=== PATIENT | female | born 1955 | race Caucasian/White ===

== ENCOUNTER → 2017-12-27 13:21 | Outpatient (CLI) | payer MEDICARE ==
[2014-05-28 23:23] VITALS: BMI 32.6
[~2017-12-27 13:21] MED LIST: BAYER CHEWABLE81 MG PO; CALCIUM 600+D T1 TA1 PO; COLACE100 MG PO; DURAGESIC1 PATCH .1 TD; EVOXAC30 MG PO; FERREX 28 TABL1 EACH PO; FETZIMA40 MG PO; FLAGYL500 MG PO; FLORAJEN3 CAPS460 MG PO; HYDROCODON-ACE1 EAC7 PO; ICAPS AREDS1 TAB.SA PO; IPRAT-ALBUT 0.5-3 ML UPD; LIDODERM 5 %1 PATCH TD; LISINOPRIL10 MG PO; LYRICA150 MG PO; MS CONTIN30 MG PO; MULTIPLE VITAMI1 TA1 PO; OMEPRAZOLE40 MG PO; OXYCONTIN15 MG PO; PEPCID20 MG PO; PHENERGAN25 M1 PO; PLAQUENIL200 MG PO; PREDNISONE5 MG PO; PREVACID15 MG PO; SINGULAIR10 MG PO; VENTOLIN HFA18 GM INH
== END | disposition home or self-care (01) ==
LOC: D.RT 13:21
DX: J44.9 Chronic obstructive pulmonary disease, unspecified (principal)

== ENCOUNTER 2018-02-11 13:07 | Inpatient (IN) | payer MEDICARE ==
[~2018-02-11] VITALS: Ht 165.1 cm; Wt 90.5 kg
--- NOTE | ~2018-02-11 | CN ---
PATIENT NAME:NIKKO SKELTON MEDICAL RECORD: [id number] : 51 LOCATION:D. D.2122 ADMIT DATE: 02/11/18 ACCOUNT: [id number] CONSULTING PHYSICIAN: IMANI MASTERSON MD REFERRING PHYSICIAN: CRISTIAN JOHNSON MD DATE OF CONSULTATION: 02/15/2018 CONSULT REQUESTING PHYSICIAN: Dr. Cristian Johnson. REASON FOR CONSULTATION: Questionable pneumonia. HISTORY OF PRESENT ILLNESS: Ms. Skelton is a 62-year-old female, who was brought into the ER with nausea, vomiting, and diarrhea. The patient has a CT scan of the abdomen, which showed possible atypical pneumonia. The patient denies any fever or chill. There is no cough, no sputum production. There is no recent pneumonia. She was having some flu early this year. PAST MEDICAL HISTORY: 1. COPD. 2. Chronic hypoxic respiratory failure. 3. History of BOOP. 4. History of interstitial lung disease. 5. History of restrictive lung disease. 6. History of rheumatoid arthritis. 7. History of systemic lupus erythematosus. 8. History of CREST syndrome. 9. Anxiety, depression. PAST SURGICAL HISTORY: 1. She has bilateral hip replacement. 2. She has history of lung biopsy. ALLERGIES: SHE IS ALLERGIC TO CEPHALOSPORIN, SULFA, BUSPIRONE, LORAZEPAM, PENICILLIN, AND ZOLPIDEM. MEDICATIONS: Anybots is reviewed. PERSONAL AND SOCIAL HISTORY: The patient is an ex-smoker. She is a nondrinker. FAMILY HISTORY: Noncontributory. PHYSICAL EXAMINATION: GENERAL: The patient is now lying comfortably in bed. She is not in acute distress. VITAL SIGNS: The blood pressure is 137/58, pulse is 107, respirations 17, temperature 98.1, and SPO2 95% on 3 liters nasal cannula. HEENT: Conjunctivae are pink. Sclerae are not icteric. NECK: Supple, no JVD. CHEST: The chest excursion is minimal on both sides. No wheeze, no rales. HEART: Rhythm regular, normal sound, no murmur. ABDOMEN: Soft, bowel sounds present. No hepatosplenomegaly. RECTAL: Deferred. EXTREMITIES: No cyanosis, no clubbing, no pedal edema. SKIN: Warm, normal turgor. CENTRAL NERVOUS SYSTEM: The patient is awake and alert. There is no obvious CONSULT REPORT [id number] NIKKO SKELTON cranial nerve abnormality. The gait was not tested. LABORATORY DATA: CBC: WBC 4.6, hemoglobin 9.7, hematocrit 29.7, platelet count is 128. Chemistry: Sodium 142, potassium 4.1, BUN is 11, creatinine 0.8. The CT scan of the abdomen, the CT cuts through the lower lobe showing some tree-in-bud opacities in the lower lobe. There is also some inflammation of the colon. IMPRESSION: 1. Chronic hypoxic respiratory failure. 2. History of pulmonary fibrosis. 3. History of bronchiolitis obliterans pneumonia. 4. Nausea and vomiting, most likely secondary to gastritis, diarrhea most likely secondary to colitis. 5. Acute renal failure, most likely secondary to dehydration. 6. Chronic obstructive pulmonary disease without exacerbation. 7. Rheumatoid arthritis. 8. History of systemic lupus erythematosus. 9. History of calcinosis, Raynaud phenomenon, esophageal dysmotility, sclerodactyly, and telangiectasia syndrome. RECOMMENDATION: Continue supplemental oxygen. Start on albuterol/ipratropium nebulizer. Continue the Singulair. I will check the CT scan of the chest. I do not think the patient has any acute pneumonia. The CT findings are most likely consistent with her history of BOOP and interstitial lung disease and possible rheumatoid lung. Dr. Johnson, thank you for involving me in the care of Ms. Skelton. TRANSINT:[id number] Voice Confirmation ID: [id number] DOCUMENT ID: [id number] IMANI MASTERSON MD CC: YOLANDE ISAAC MD [id number] DICTATION DATE: 02/15/18 1557 OFFSET PRESSMAN: 02/16/18216 ADM IN [facility] [address] [id number]
[~2018-02-11 13:07] MED LIST changes: -FLAGYL500 MG PO; -FLORAJEN3 CAPS460 MG PO; -HYDROCODON-ACE1 EAC7 PO; -IPRAT-ALBUT 0.5-3 ML UPD; -LISINOPRIL10 MG PO; -MS CONTIN30 MG PO; -OMEPRAZOLE40 MG PO; -PEPCID20 MG PO; -SINGULAIR10 MG PO
[2018-02-11 13:45] LABS: BASOPHILS 0.1 % (0-2); EOSINOPHILS 3.9 % (0-7); HEMATOCRIT 33.6 % (36.0-48.0); IMMATURE GRANULOCYTES 0.3 % (0-5); LYMPHOCYTES 12.2 % (15-50); MCH 29.9 pg (26.0-34.0); MCHC 32.7 g/dL (31.0-37.0); MCV 91.3 fL (80.0-100.0); MEAN PLATELET VOLUME 10.5 fL (7.4-10.4); MONOCYTES 12.4 % (2-11); NEUTROPHILS 71.1 % (40-80); PLATELET COUNT 227 10x3/uL (130-400); RBC 3.68 10x6/uL (4.00-5.40); RDW 13.9 % (11.5-14.5); WBC 7.2 10x3/uL (4.8-10.8)
[2018-02-11 14:01] LABS: ALBUMIN 3.7 g/dL (3.4-5.0); ANION GAP 13.5 mmol/L (8-16); BILIRUBIN - TOTAL 0.21 mg/dL (0.2-1.3); CALCIUM 8.7 mg/dL (8.5-10.1); CARBON DIOXIDE 29.4 mmol/L (21.0-32.0); CREATININE - SERUM 4.4 mg/dL (0.6-1.3); POTASSIUM - SERUM 4.9 mmol/L (3.5-5.1); PROTEIN - SERUM 6.5 g/dL (6.4-8.2)
[2018-02-11 14:46] LABS: APPEARANCE CLEAR (CLEAR); BILIRUBIN NEGATIVE (NEGATIVE); COLOR YELLOW (YELLOW); GLUCOSE NEGATIVE (NEGATIVE); KETONE NEGATIVE (NEGATIVE); NITRITE NEGATIVE (NEGATIVE); PROTEIN NEGATIVE (NEGATIVE); SPECIFIC GRAVITY 1.015 (1.005-1.020); UROBILINOGEN NORMAL (NORMAL)
[2018-02-11 14:58] LABS: CREATINE KINASE 1106 UL (21-215)
[2018-02-11 14:59] LABS: CKMB 12.5 U/L (0.0-3.6)
[2018-02-11] MEDS ORDERED: MS CONTIN30 MG PO (22:55)
[2018-02-11] MEDS ORDERED: LISINOPRIL10 MG PO (22:56)
[2018-02-11] MEDS ORDERED: HYDROCODON-ACE1 EAC7 PO (22:56)
[2018-02-11] MEDS ORDERED: SINGULAIR10 MG PO (22:57)
[2018-02-11] MEDS ORDERED: OMEPRAZOLE40 MG PO (22:58)
[2018-02-11] MEDS ORDERED: IPRAT-ALBUT 0.5-3 ML UPD (23:01)
[2018-02-11 23:48] VITALS: BP 125/71; BMI 31.8
[2018-02-12] VITALS: BP 114/49
[2018-02-12 04:00] VITALS: BP 100/70
[2018-02-12 05:06] LABS: BASOPHILS 0.5 % (0-2); EOSINOPHILS 6.8 % (0-7); HEMATOCRIT 30.8 % (36.0-48.0); HEMOGLOBIN 9.7 g/dL (12-16); IMMATURE GRANULOCYTES 0.3 % (0-5); LYMPHOCYTES 19.5 % (15-50); MCH 29.4 pg (26.0-34.0); MCHC 31.5 g/dL (31.0-37.0); MEAN PLATELET VOLUME 10.2 fL (7.4-10.4); MONOCYTES 20.3 % (2-11); NEUTROPHILS 52.6 % (40-80); PLATELET COUNT 182 10x3/uL (130-400)
[2018-02-12 05:37] LABS: MCV 93.3 fL (80.0-100.0)
[2018-02-12 05:56] LABS: CALC OSMOLALITY 315 mosm/kg (275-300); CALCIUM 8.1 mg/dL (8.5-10.1); CHLORIDE - SERUM 110 mmol/L (98-107); GLUCOSE 146 mg/dL (74-106); POTASSIUM - SERUM 4.7 mmol/L (3.5-5.1); SODIUM 146 mmol/L (136-145); UREA NITROGEN 73 mg/dL (7-18)
[2018-02-12 06:01] LABS: CREATINE KINASE 518 UL (21-215); eGFR NON AFRICAN AMERICAN 27 mL/min (90-120)
[2018-02-12 06:02] LABS: CKMB 4.9 U/L (0.0-3.6)
[2018-02-12 08:09] VITALS: BP 111/62
[2018-02-12 11:41] VITALS: BP 129/72
[2018-02-12 15:32] VITALS: BP 142/58
[2018-02-12 20:00] VITALS: BP 154/82
[2018-02-13] VITALS (7 sets, daily range): BP systolic 145–171; BP diastolic 69–87; Ht 165.1 cm; Wt 90.5 kg
[2018-02-13 06:16] LABS: BASOPHILS 0.5 % (0-2); EOSINOPHILS 5.5 % (0-7); HEMATOCRIT 32.7 % (36.0-48.0); HEMOGLOBIN 10.3 g/dL (12-16); IMMATURE GRANULOCYTES 0.2 % (0-5); LYMPHOCYTES 16.2 % (15-50); MCH 29.3 pg (26.0-34.0); MCHC 31.5 g/dL (31.0-37.0); MCV 92.9 fL (80.0-100.0); MEAN PLATELET VOLUME 10.5 fL (7.4-10.4); NEUTROPHILS 62.6 % (40-80); PLATELET COUNT 188 10x3/uL (130-400); RBC 3.52 10x6/uL (4.00-5.40); RDW 13.6 % (11.5-14.5); WBC 4.2 10x3/uL (4.8-10.8)
[2018-02-13 06:24] LABS: ALBUMIN 3.2 g/dL (3.4-5.0); ANION GAP 11.5 mmol/L (8-16); BILIRUBIN - TOTAL 0.2 mg/dL (0.2-1.3); CALCIUM 8.8 mg/dL (8.5-10.1); CARBON DIOXIDE 27.1 mmol/L (21.0-32.0); MAGNESIUM - SERUM 2.1 mg/dL (1.8-2.4); PHOSPHOROUS 1.9 mg/dL (2.5-4.9); POTASSIUM - SERUM 4.6 mmol/L (3.5-5.1); PROTEIN - SERUM 5.7 g/dL (6.4-8.2)
[2018-02-13 06:26] LABS: CREATININE - SERUM 1.2 mg/dL (0.6-1.3)
[2018-02-14 04:05] VITALS: BP 145/75
[2018-02-14 05:07] LABS: BASOPHILS 0.2 % (0-2); EOSINOPHILS 5.5 % (0-7); HEMATOCRIT 30.2 % (36.0-48.0); IMMATURE GRANULOCYTES 0.7 % (0-5); LYMPHOCYTES 20.1 % (15-50); MCH 29.9 pg (26.0-34.0); MCHC 33.1 g/dL (31.0-37.0); MEAN PLATELET VOLUME 10.1 fL (7.4-10.4); MONOCYTES 13.2 % (2-11); NEUTROPHILS 60.3 % (40-80); PLATELET COUNT 159 10x3/uL (130-400); RBC 3.35 10x6/uL (4.00-5.40); RDW 13.3 % (11.5-14.5); WBC 4.4 10x3/uL (4.8-10.8)
[2018-02-14 05:15] LABS: MCV 90.1 fL (80.0-100.0)
[2018-02-14 05:19] LABS: ALBUMIN 2.8 g/dL (3.4-5.0); ANION GAP 8.8 mmol/L (8-16); BILIRUBIN - TOTAL 0.4 mg/dL (0.2-1.3); CALCIUM 8.4 mg/dL (8.5-10.1); CARBON DIOXIDE 28.6 mmol/L (21.0-32.0); CREATININE - SERUM 0.9 mg/dL (0.6-1.3); POTASSIUM - SERUM 4.4 mmol/L (3.5-5.1); PROTEIN - SERUM 4.9 g/dL (6.4-8.2)
[2018-02-14 05:21] LABS: MAGNESIUM - SERUM 1.5 mg/dL (1.8-2.4); PHOSPHOROUS 1.5 mg/dL (2.5-4.9)
[2018-02-14 11:49] VITALS: BP 171/84
[2018-02-14 16:05] VITALS: BP 110/84
[2018-02-14 19:54] VITALS: BP 149/78
[2018-02-15 01:30] VITALS: BP 140/64
[2018-02-15 04:40] VITALS: BP 145/80
[2018-02-15 05:58] LABS: BASOPHILS 0.2 % (0-2); EOSINOPHILS 3.7 % (0-7); HEMATOCRIT 29.7 % (36.0-48.0); HEMOGLOBIN 9.7 g/dL (12-16); LYMPHOCYTES 22.3 % (15-50); MCH 29.2 pg (26.0-34.0); MCHC 32.7 g/dL (31.0-37.0); MCV 89.5 fL (80.0-100.0); MEAN PLATELET VOLUME 9.6 fL (7.4-10.4); MONOCYTES 15.8 % (2-11); PLATELET COUNT 128 10x3/uL (130-400); RBC 3.32 10x6/uL (4.00-5.40); RDW 13.6 % (11.5-14.5); WBC 4.6 10x3/uL (4.8-10.8)
[2018-02-15 06:19] LABS: ALBUMIN 2.8 g/dL (3.4-5.0); ALT (SGPT) 45 U/L (10-68); BILIRUBIN - TOTAL 0.42 mg/dL (0.2-1.3); CALC OSMOLALITY 281 mosm/kg (275-300); CALCIUM 8.3 mg/dL (8.5-10.1); CARBON DIOXIDE 27.1 mmol/L (21.0-32.0); CHLORIDE - SERUM 109 mmol/L (98-107); CREATININE - SERUM 0.8 mg/dL (0.6-1.3); GLUCOSE 105 mg/dL (74-106); MAGNESIUM - SERUM 1.4 mg/dL (1.8-2.4); POTASSIUM - SERUM 4.1 mmol/L (3.5-5.1); PROTEIN - SERUM 4.7 g/dL (6.4-8.2); SODIUM 142 mmol/L (136-145); eGFR NON AFRICAN AMERICAN 76 mL/min (90-120)
[2018-02-15 06:42] LABS: ALKALINE PHOSPHATASE 35 U/L (46-116); UREA NITROGEN 11 mg/dL (7-18)
[2018-02-15 07:54] VITALS: BP 128/60
[2018-02-15 11:53] VITALS: BP 137/58
[2018-02-15 16:35] VITALS: BP 129/67
[2018-02-15 20:20] VITALS: BP 137/69
[2018-02-16 00:41] VITALS: BP 98/48
[2018-02-16 05:42] LABS: BASOPHILS 0.2 % (0-2); EOSINOPHILS 3.3 % (0-7); HEMATOCRIT 27.4 % (36.0-48.0); HEMOGLOBIN 9.1 g/dL (12-16); IMMATURE GRANULOCYTES 1.7 % (0-5); MCH 29.8 pg (26.0-34.0); MCHC 33.2 g/dL (31.0-37.0); MCV 89.8 fL (80.0-100.0); MEAN PLATELET VOLUME 9.8 fL (7.4-10.4); NEUTROPHILS 58.8 % (40-80); RBC 3.05 10x6/uL (4.00-5.40); RDW 13.9 % (11.5-14.5); WBC 4.8 10x3/uL (4.8-10.8)
[2018-02-16 06:00] LABS: PLATELET COUNT 100 10x3/uL (130-400)
[2018-02-16 06:25] LABS: ALBUMIN 2.8 g/dL (3.4-5.0); BILIRUBIN - TOTAL 0.39 mg/dL (0.2-1.3); CALCIUM 8.1 mg/dL (8.5-10.1); CARBON DIOXIDE 27.9 mmol/L (21.0-32.0); CREATININE - SERUM 0.9 mg/dL (0.6-1.3); MAGNESIUM - SERUM 1.3 mg/dL (1.8-2.4); PHOSPHOROUS 2.3 mg/dL (2.5-4.9); POTASSIUM - SERUM 3.9 mmol/L (3.5-5.1); PROTEIN - SERUM 4.7 g/dL (6.4-8.2)
[2018-02-16 08:11] VITALS: BP 160/70
[2018-02-16 11:22] VITALS: BP 137/83
[2018-02-16 15:29] VITALS: BP 144/73
[2018-02-16 21:35] VITALS: BP 143/71
[2018-02-17 05:39] VITALS: BP 130/64
[2018-02-17 06:18] LABS: BASOPHILS 0.2 % (0-2); EOSINOPHILS 3.2 % (0-7); HEMATOCRIT 27.4 % (36.0-48.0); IMMATURE GRANULOCYTES 1.1 % (0-5); LYMPHOCYTES 22.8 % (15-50); MCH 29.8 pg (26.0-34.0); MCHC 32.8 g/dL (31.0-37.0); MCV 90.7 fL (80.0-100.0); MEAN PLATELET VOLUME 10.5 fL (7.4-10.4); MONOCYTES 13.1 % (2-11); NEUTROPHILS 59.6 % (40-80); PLATELET COUNT 103 10x3/uL (130-400); RBC 3.02 10x6/uL (4.00-5.40); RDW 14.2 % (11.5-14.5); WBC 4.7 10x3/uL (4.8-10.8)
[2018-02-17 06:51] LABS: ALBUMIN 2.9 g/dL (3.4-5.0); ANION GAP 10.4 mmol/L (8-16); BILIRUBIN - TOTAL 0.26 mg/dL (0.2-1.3); CALCIUM 8.3 mg/dL (8.5-10.1); CARBON DIOXIDE 28.4 mmol/L (21.0-32.0); CREATININE - SERUM 0.9 mg/dL (0.6-1.3); MAGNESIUM - SERUM 1.3 mg/dL (1.8-2.4); POTASSIUM - SERUM 3.8 mmol/L (3.5-5.1); PROTEIN - SERUM 4.9 g/dL (6.4-8.2)
[2018-02-17 08:51] VITALS: BP 136/69
[2018-02-17 12:13] VITALS: BP 140/80
[2018-02-17] MEDS ORDERED: PEPCID20 MG PO (13:07)
[2018-02-17] MEDS ORDERED: FLORAJEN3 CAPS460 MG PO (13:07)
[2018-02-17] MEDS ORDERED: FLAGYL500 MG PO (13:08)
[2018-02-25 03:05] LABS: OVA + PARASITE EXAM Final report (())
== END 2018-02-17 15:14 | disposition home or self-care (01) | DRG 391 ==
LOC: D.ER 13:07 → D.M2 19:33
PROVIDERS: Emergency Medicine; Family Medicine; Internal Medicine; Internal Medicine Gastroenterology
PROC: 0DB78ZX Excision of Stomach, Pylorus, Via Natural or Artificial Opening Endoscopic, Diagnostic (ICD-10-PCS; 2018-02-14)
PROC: 0DB98ZX Excision of Duodenum, Via Natural or Artificial Opening Endoscopic, Diagnostic (ICD-10-PCS; principal; 2018-02-14 07:00)
DX: K29.00 Acute gastritis without bleeding (principal); G93.40 Encephalopathy, unspecified; N17.9 Acute kidney failure, unspecified; E87.0 Hyperosmolality and hypernatremia; M62.82 Rhabdomyolysis; J96.11 Chronic respiratory failure with hypoxia; J44.9 Chronic obstructive pulmonary disease, unspecified; F41.9 Anxiety disorder, unspecified; F32.9 Major depressive disorder, single episode, unspecified; D64.9 Anemia, unspecified; K59.09 Other constipation; K44.9 Diaphragmatic hernia without obstruction or gangrene; G89.4 Chronic pain syndrome; E86.0 Dehydration; J84.89 Other specified interstitial pulmonary diseases; K52.9 Noninfective gastroenteritis and colitis, unspecified; M06.9 Rheumatoid arthritis, unspecified

== ENCOUNTER → 2018-12-09 13:29 | Outpatient (CLI) | payer MEDICARE, BC ==
[2018-02-13 18:54] VITALS: BMI 33.1
[~2018-12-09 13:29] MED LIST changes: +FLAGYL500 MG PO; +FLORAJEN3 CAPS460 MG PO; +HYDROCODON-ACE1 EAC7 PO; +IPRAT-ALBUT 0.5-3 ML UPD; +LISINOPRIL10 MG PO; +MS CONTIN30 MG PO; +OMEPRAZOLE40 MG PO; +PEPCID20 MG PO; +SINGULAIR10 MG PO
== END | disposition home or self-care (01) ==
LOC: D.RT 13:29
PROVIDERS: ATTEND Internal Medicine Pulmonary Disease
DX: J84.116 Cryptogenic organizing pneumonia (principal)

== ENCOUNTER 2019-01-03 21:57 | Inpatient (IN) | payer MEDICARE, BC ==
[~2019-01-03] VITALS: Ht 165.1 cm; Wt 92.0 kg
--- NOTE | ~2019-01-03 | HEMODYNAMI ---
PATIENT:NIKKO SKELTON MEDICAL RECORD: [id number] : 51 LOCATION:[place] [address] ADMISSION DATE: 01/03/19 Generatedon:01/06/20199:52 Patient name: NIKKO SKELTON Patient #: [id number] SSN: : 1955 Date of study: 01/06/2019 Page: Of Hemodynamic Procedure Report Patient Data Patient Demographics Procedure consent was obtained First Name: NIKKO Gender: Female Last Name: NAFISA : 1955 [facility] Initial: HERIBERTO Age: 63 year(s) Patient #: [id number] Race: Unknown Additional ID: [id number] Contact details Address: [address] [place] [address] State: [place] City: [facility] Zip code: [address] Admission Admission Data Admission Date: 01/03/2019 Admission Time: 23:43 Room #: [facility] Weight (lbs.): 205.03 Weight (kg.): 93 Lab Results Lab Result Date: 01/06/2019 Lab Result Time: 0:00 Biochemistry Name Units Result Min Max BUN mg/dl 41 --(----)-* 7 18 Creatinine mg/dl 1.3 --(---*)-- 0.6 1.3 CBC Name Units Result Min Max Hemoglobin g/dl 10.8 *-(----)-- 13.5 17.5 Procedure Procedure Types Cath Procedure Diagnostic Procedure LHC LH w/Coronaries Procedure Description Procedure Date Procedure Date: 01/06/2019 Procedure Start Time: 9:42 Procedure End Time: 9:51 Procedure Staff Name Function Eleuterio Dick MD Performing Physician Janine Florian RT Scrub Katerina Gasca RN Nurse Maximino Owens RT Monitor Procedure Data Cath Procedure Fluoroscopy Diagnostic fluoroscopy Total fluoroscopy Time: 1.1 time: 1.1 min min Diagnostic fluoroscopy Total fluoroscopy dose: 232 dose: 232 mGy mGy Contrast Material Contrast Material Type Amount (ml) Isovue 300 54 Entry Location Entry Primary Successful Side Size Upsize Upsize Entry Closure Succes sful Closure Location (Fr) 1 (Fr) 2 (Fr) Remarks Device Remarks Femoral Right 5 Fr Exoseal artery Estimated blood loss: 10 ml Diagnostic catheters Device Type Used For End Catheter Placement MULTIPACK JL 4.0 5Fr Procedure catheter MULTIPACK 3DRC 5Fr Procedure catheter MULTIPACK Pigtail 5 Fr Procedure catheter Procedure Complications No complications Procedure Medications Medication Administration Route Dosage 0.9% NaCl I.V. 100 ml/hr Oxygen etCO2 Nasal cannula 2 l/min Lidocaine 2% added to field 20 Heparin Flush Bag added to field 2 bags (1000units/500ml NS) Versed I.V. 2 mg Fentanyl I.V. 25 mcg Versed I.V. 2 mg Fentanyl I.V. 25 mcg Hemodynamics Rest HGB: 10.8 (g/dl) Heart Rate: 107 (bpm) Pressure Samples Time Site Value (mmHg) Purpose Heart Use Rate(bpm) 9:47 LV 105/0,7 Snapshot 102 9:48 AO 73/31(60) Pullback 104 9:48 LV 103/2,13 Pullback 104 Gradients Valve Time Site 1 Site 2 Mean SEP/DFP Peak To Heart Use (mmHg) (sec/min) Peak Rate (mmHg) (bpm) Aortic 9:48 LV AO 35 27 30 104 103/2,13 73/31(60) Calculations Valve P-P Mean Valve Index Valve Source Name Gradient Area Flow (cm2) Aortic 30 35 30 35 Snapshots Pre Cath Intra NCS Post Cath Vital Signs Time Heart Resp SPO2 etCO2 NIBP (mmHg) Rhythm Pain Sedation Rate (ipm) (%) (mmHg) Status Level (bpm) 9:30:08 110 20 100 0 149/77(104) NSR 0 (11) 10(A) , No pain 9:34:26 107 12 100 0 131/74(92) NSR 0 (11) 10(A) , No pain 9:38:40 100 11 96 0 112/63(80) NSR 0 (11) 10(A) , No pain 9:42:49 103 13 98 0 116/61(87) NSR 0 (11) 10(A) , No pain 9:47:02 103 14 96 0 112/65(93) NSR 0 (11) 10(A) , No pain 9:51:11 98 12 97 0 114/63(79) NSR 0 (11) 10(A) , No pain Medications Time Medication Route Dose Verified Delivered Reason Notes Effe ctiveness by by 9:32:49 0.9% NaCl I.V. 100 Eleuterio Katerina used for ml/hr Chelsea Campos procedure RN 9:32:56 Oxygen etCO2 2 Eleuterio Katerina used for Nasal l/min [facility] procedure cannula MD MARTINEZ 9:33:03 Lidocaine 2% added 20ml Eleuterio Eleuterio for local to vial [facility] anesthetic field MD MAGALLANES 9:33:07 Heparin Flush added 2 Eleuterio Eleuterio used for Bag to bags [facility] procedure (1000units/500ml field MD MAGALLANES NS) 9:39:12 Versed I.V. 2 mg Eleuterio Katerina for Chelsea Campos sedation MD MARTINEZ 9:39:17 Fentanyl I.V. [address] m[address] [facility] Gasca sedation MD MARTINEZ 9:43:55 Versed I.V. 2 mg Eleuterio Katerina for KapilKaushal Gasca sedation MD MARTINEZ 9:44:02 Fentanyl I.V. 25 Eleuterio Katerina for mcg KapilKaushal Gasca sedation MD MARTINEZbusiness and financial counsel Log Time Note 9:02:17 Informed consent obtained and on chart 9:02:48 Diagnostic Cath Status : Elective 9:03:29 Janine Florian RT(R) sent for patient. Start room use. 9:03:31 Time tracking: Regular hours (M-F 7:00 - 5:00) 9:03:36 Plan of Care:Hemodynamics will remain stable., Cardiac rhythm will remain stable., Comfort level will be maintained., Respiratory function will remain adequate., Patient/ family verbilizes understanding of procedure., Procedure tolerated without complication., Recovers from procedure without complications.. 9:23:20 Patient received from CVICU to CCL 2 Alert and oriented. Tansferred to table in Supine position. 9:23:22 Warm blankets applied, and charan hugger turned on for patient comfort. 9:23:22 Correct patient and procedure confirmed by team. 9:23:23 ECG and BP/O2 sat monitors applied to patient. 9:29:00 Vital chart was started 9:31:04 Baseline sample Acquired. 9:31:15 Rhythm: sinus tachycardia 9:31:17 Full Disclosure recording started 9:31:25 H&P Date Dictated: 01/05/2019 Within 30 days and on chart.. 9:31:26 Pre-procedure instructions explained to patient. 9:31:26 Pre-op teaching completed and patient verbalized understanding. 9:31:38 Family in patients room. 9:31:40 Patient NPO since Midnight. 9:31:42 Is the patient allergic to Iodine/contrast media? No. 9:32:18 Is patient on blood thinner?No 9:32:23 Patient diabetic? No. 9:32:25 Previous problem with sedation/anesthesia? No ? 9:32:26 Snore? Yes 9:32:28 Sleep apnea? No 9:32:29 Deviated septum? No 9:32:29 Opens mouth fully? Yes 9:32:30 Sticks out tongue? Yes 9:32:35 Airway obstruction? Yes COPD 9:32:39 Dentures? No ? 9:32:46 Pre procedure: right dorsailis pedis pulse 1+ Palpable, but thready & weak; easily obliterated 9:32:49 0.9% NaCl 100 ml/hr I.V. was administered by Katerina Gasca RN; used for procedure; 9:32:53 Patient pain scale 0/10 ?. 9:32:56 Oxygen 2 l/min etCO2 Nasal cannula was administered by Katerina Gasca RN; used for procedure; 9:32:58 IV patent on arrival in right wrist with 0.9% NaCl at O. 9:33:03 Lidocaine 2% 20ml vial added to field was administered by Eleuterio Dick MD; for local anesthetic; 9:33:07 Heparin Flush Bag (1000units/500ml NS) 2 bags added to field was administered by Eleuterio Dick MD; used for procedure; 9:33:08 Lab results completed and on chart. 9:33:15 Right groin area was prepped with chlora-prep and draped in sterile fashion 9:33:16 Alarms reviewed by R. N. 9:33:16 Sharps counted by scrub and verified by R.N. 9:33:20 Use device set Femoral Dx 9:33:22 Tegaderm 4 x 4 ([id number]) opened to sterile field. 9:33:23 ACIST Manifold (96716) opened to sterile field. 9:33:23 ACIST Hand Control (83439) opened to sterile field. 9:33:25 ACIST Syringe (49246) opened to sterile field. 9:33:25 Bag Decanter (2002S) opened to sterile field. 9:33:26 Medline Cath Pack ([id number]) opened to sterile field. 9:33:28 SHEATH 5FR Tye (AFU568) opened to sterile field. 9:33:29 DIAGNOSTIC Multipack 5Fr catheter set (NF2044) opened to sterile field. 9:33:30 DIAGNOSTIC WIRE .035 260cm J wire (252162) opened to sterile field. 9:33:41 TASHA EtCO2, pt arrived to on HFNC without EtCO2 NC. 9:36:55 Patient Weight : 205.03 lbs 9:37:44 Lab Result : Hemoglobin 10.8 g/dl 9:37:44 Lab Result : Creatinine 1.3 mg/dl 9:37:44 Lab Result : BUN 41 mg/dl 9:38:59 --------ALL STOP TIME OUT------ 9:39:00 Final Timeout: patient, procedure, and site verified with staff and physician. All members of the team are in agreement. 9:39:03 Right groin site verified by team. 9:39:08 Maximum allowable Isovue 300 dose 300ml. Physician notified. (300ml for normal creatinines. For patients with creatinine of 1.7 or higher multiply weight(kg) x 5 divided by creatinine.) 9:39:12 Versed 2 mg I.V. was administered by Katerina Gasca RN; for sedation; 9:39:13 Fire Safety Assessment: A--An alcohol-based skin anteseptic being used preoperatively., C--Open oxygen or nitrous oxide is being used., D--An ESU, laser, or fiber-optic light is being used. 9:39:15 Physical assessment completed. ASA score P 2 - A patient with mild systemic disease as per Eleuterio Dick MD. 9:39:17 Fentanyl 25 mcg I.V. was administered by Katerina Gasca RN; for sedation; 9:39:17 Sedation plan: IV Moderate Sedation Medication:Versed, Fentanyl 9:42:17 Procedure started. 9:42:20 Local anesthetic to right femoral artery with Lidocaine 2% by Eleuterio Dick MD.INITIAL ACCESS ONLY 9:43:21 A 5 Fr sheath was inserted into the Right Femoral artery 9:43:55 Versed 2 mg I.V. was administered by Katerina Gasca RN; for sedation; 9:44:00 A MULTIPACK JL 4.0 5Fr catheter was advanced over the wire and used for Procedure. 9:44:02 Fentanyl 25 mcg I.V. was administered by Katerina Gasca RN; for sedation; 9:44:10 LCA angiography performed. 9:45:24 Catheter removed. 9:45:39 A MULTIPACK 3DRC 5Fr catheter was advanced over the wire and used for Procedure. 9:46:30 RCA angiography performed. 9:46:32 Catheter removed. 9:46:50 A MULTIPACK Pigtail 5 Fr catheter was advanced over the wire and used for Procedure. 9:48:03 LV angiography performed. 9:49:13 LV gram done using MARCOS 9:49:22 EF : 50 % 9:49:31 Injector settings: Ml/sec: 10, Volume: 20, 9:49:32 Catheter removed. 9:49:34 EXOSEAL 5Fr (EX500) opened to sterile field. 9:49:51 Sheath removed intact; hemostasis achieved with Exoseal to the Right Femoral artery. 9:49:54 Procedure ended.(Physican Out) 9:50:01 Fluoroscopy time 01.10 minutes. 9:50:06 Fluoroscopy dose: 232 mGy 9:50:06 Flurop Dose total: 232 9:50:21 Contrast amount:Isovue 300 54ml. 9:50:23 Sharps counted by scrub and verified by R.N. 9:50:24 Insertion/operative site no bleeding no hematoma. 9:50:27 Post-op/insertion site Right Femoral artery dressed using a 4 x 4 and Tegaderm. 9:50:30 Post Procedure Pulses reassessed and unchanged 9:50:36 Post-procedure physical assessment completed. ASA score P 2 - A patient with mild systemic disease as per Eleuterio Dick MD. 9:50:38 Post procedure rhythm: unchanged. 9:50:42 Estimated blood loss: 10 ml 9:50:43 Post procedure instruction explained to patient.Patient verbalizes understanding. 9:50:44 Patient needs reinforcement of post procedure teaching. 9:50:49 Procedure and supply charges have been captured, reviewed, submitted and are correct. 9:50:52 Procedure Complication : No complications 9:51:08 Vital chart was stopped 9:51:08 See physician's report for complete and final results. 9:51:11 Report given to CVICU. 9:51:36 Patient transfered to CVICU with Bed. 9:51:39 Procedure ended. 9:51:39 Full Disclosure recording stopped 9:51:43 End room use (Document Last) Device Usage Item Name Manufacture Quantity Catalog Hospital Part Current Minimal L ot# / Number Charge Number Stock Stock Serial# Code Tegaderm 4 3M 1 1626W [id number] 381198 [id number] 5 x 4 (1626W) ACIST Acist 1 71597 448319 603618 428546 5 Manifold Medical (68665) Systems Inc ACIST Hand Acist 1 90473 691419 601176 845225 5 Control Medical (64677) Systems Inc ACIST Acist 1 53023 206388 567574 012356 20 Syringe Medical (26513) Systems Inc Bag Microtek 1 2001S 956471 09588 365101 5 Decanter Medical Inc. (2001S) Medline Medline 1 [id number] 784216 11470 376335 5 Cath Pack ([id number]) SHEATH 5FR Terumo 1 PYD986 065106 163678 572041 5 Tye (ZIA987) DIAGNOSTIC Cardinal 1 ZD4803 361198 34470 316401 30 Multipack Health 5Fr catheter set (AE7914) DIAGNOSTIC St Izaiah 1 878004 479605 645082 862943 30 WIRE .035 260cm J wire (870706) MULTIPACK Cardinal 1 699301 5 JL 4.0 5Fr Health catheter MULTIPACK Cardinal 1 533140 5 3DRC 5Fr Health catheter MULTIPACK Cardinal 1 756166 5 Pigtail 5 Health Fr catheter EXOSEAL 5Fr Cardinal 1 EX500 501120 084893 077395 10 (EX500) Health Signature Audit [place] Stage Time Signature Unsigned Intra-Procedure 01/06/2019 Maximino Owens 9:52:38 AM RT(R) Signatures Monitor : Maximino Owens RT Signature : Date : Time : [address] [place] [address]
[2019-01-03 22:15] LABS: BASOPHILS 0.3 % (0-2); EOSINOPHILS 4.5 % (0-7); HEMATOCRIT 35.7 % (36.0-48.0); HEMOGLOBIN 11.3 g/dL (12-16); IMMATURE GRANULOCYTES 0.3 % (0-5); LYMPHOCYTES 8.9 % (15-50); MCH 29.8 pg (26.0-34.0); MCHC 31.7 g/dL (31.0-37.0); MCV 94.2 fL (80.0-100.0); MEAN PLATELET VOLUME 10.2 fL (7.4-10.4); MONOCYTES 7.4 % (2-11); NEUTROPHILS 78.6 % (40-80); RBC 3.79 10x6/uL (4.00-5.40); RDW 15.8 % (11.5-14.5)
[2019-01-03 22:16] LABS: PLATELET COUNT 140 10x3/uL (130-400)
[2019-01-03] MEDS ORDERED: MORPHINE SULFAT15 M4 PO (22:16)
[2019-01-03 22:24] LABS: APTT 24.1 SECONDS (22.8-39.4); INR 1.02 (0.85-1.17); PROTIME 12.9 SECONDS (11.6-15.0)
[2019-01-03 22:30] LABS: ALBUMIN 3.6 g/dL (3.4-5.0); ALKALINE PHOSPHATASE 63 U/L (46-116); ALT (SGPT) 46 U/L (10-68); BILIRUBIN - TOTAL 0.33 mg/dL (0.2-1.3); CALC OSMOLALITY 283 mosm/kg (275-300); CALCIUM 10.1 mg/dL (8.5-10.1); CARBON DIOXIDE 37.2 mmol/L (21.0-32.0); CHLORIDE - SERUM 99 mmol/L (98-107); CREATININE - SERUM 1.3 mg/dL (0.6-1.3); GLUCOSE 127 mg/dL (74-106); POTASSIUM - SERUM 5.6 mmol/L (3.5-5.1); PROTEIN - SERUM 6.1 g/dL (6.4-8.2); SODIUM 136 mmol/L (136-145); UREA NITROGEN 40 mg/dL (7-18); eGFR NON AFRICAN AMERICAN 43 mL/min (90-120)
[2019-01-03 22:39] LABS: CKMB 3.8 U/L (0.0-3.6); CREATINE KINASE 77 UL (21-215); PRO BNP 366 pg/mL (0-125)
[2019-01-03 22:44] LABS: TROPONIN-I < 0.017 ng/mL (0.000-0.060)
[2019-01-03 23:00] VITALS: BP 129/64
--- NOTE | 2019-01-03 23:48 | NUR ---
PATIENT PLACED BIPAP BY RT, 07/05 40% FIO2, SATS CURRENTLY 98%
[2019-01-04] VITALS (25 sets, daily range): BP systolic 101–137; BP diastolic 52–73; BMI 34.5
--- NOTE | 2019-01-04 03:02 | NUR ---
DR GUEVARA CONTACTED. NEW ORDERS RECEIVED
--- NOTE | 2019-01-04 06:05 | NUR ---
DR CHAVIRA WAS AT BEDSIDE. D DIMER ORDERED. WILL NOTIFY MD IF ELEVATED PER HIS REQUEST. IF RESULTS NOT AVAILABLE BY END OF SHIFT, WILL HAVE AM RN NOTIFY.
[2019-01-04 06:10] LABS: BASOPHILS 0 % (0-2); EOSINOPHILS 1.1 % (0-7); HEMATOCRIT 35.3 % (36.0-48.0); IMMATURE GRANULOCYTES 0.2 % (0-5); LYMPHOCYTES 6.7 % (15-50); MCH 29.4 pg (26.0-34.0); MCHC 31.2 g/dL (31.0-37.0); MCV 94.4 fL (80.0-100.0); MEAN PLATELET VOLUME 10.1 fL (7.4-10.4); PLATELET COUNT 116 10x3/uL (130-400); RBC 3.74 10x6/uL (4.00-5.40); RDW 15.8 % (11.5-14.5)
[2019-01-04 06:26] LABS: WBC 5.4 10x3/uL (4.8-10.8)
[2019-01-04 06:42] LABS: ALBUMIN 3.3 g/dL (3.4-5.0); ANION GAP 8.4 mmol/L (8-16); BILIRUBIN - TOTAL 0.33 mg/dL (0.2-1.3); CALCIUM 9.4 mg/dL (8.5-10.1); CARBON DIOXIDE 36.2 mmol/L (21.0-32.0); CREATININE - SERUM 1.1 mg/dL (0.6-1.3); POTASSIUM - SERUM 5.6 mmol/L (3.5-5.1); PROTEIN - SERUM 5.9 g/dL (6.4-8.2)
[2019-01-04 08:34] LABS: ERYTHROCYTE SEDIMENTATION RATE 9 mm/hr (0-30)
[2019-01-04 11:43] LABS: ANION GAP 8.4 mmol/L (8-16); CALCIUM 9.2 mg/dL (8.5-10.1); CARBON DIOXIDE 37.3 mmol/L (21.0-32.0); CREATININE - SERUM 1.1 mg/dL (0.6-1.3); POTASSIUM - SERUM 4.7 mmol/L (3.5-5.1)
--- NOTE | 2019-01-04 13:22 | HP ---
PATIENT: NIKKO SKELTON MEDICAL RECORD: [id number] ACCOUNT: [id number] LOCATION:[facility] RicciCV05 : [birth year] ADMISSION DATE: 01/03/19 PCP: YOLANDE ISAAC MD HISTORY AND PHYSICAL EXAMINATION HISTORY OF PRESENT ILLNESS: Ms. Skelton is a 63-year-old white female who presents to the Emergency Room with increasing shortness of breath over the last several weeks, became worse Jim a.m. She has not had any fever. She has had a nonproductive cough. She has increased swelling. She did have an echo in December, which showed normal EF of 55% to 60% and no significant valve issues. She does have an elevated BNP. Her labs are significant for a normal white count of 8, H&H of 11.3 and 35.7 with a platelet count of 140. She does have a potassium of 5.6, BUN 40, creatinine 1.3. Initial CK-MB is 3.8, BNP was 366 and slightly elevated. INR is 1.02. She is requiring BiPAP. She is admitted to the CV ICU at this time for further evaluation. PAST MEDICAL HISTORY: Significant for pulmonary fibrosis, neuropathy, rheumatoid arthritis for which she sees Dr. Garza, osteoarthritis, chronic pain, GERD. PAST SURGICAL HISTORY: Include amputation of the phalanx of the finger; both hips being replaced; lumpectomy of the breast; thorascopic surgical lobectomy; right shoulder replacement in 2015, left in 2012, and placement of a chronic pain patch; section in 1978 and colonoscopy [place] [address] Ruelas. ALLERGIES AND INTOLERANCES: INCLUDE BUSPAR, HALLUCINATIONS; CEFEPIME ONLY WHICH CAUSE A RASH; SHE HAS TAKEN ROCEPHIN WITHOUT PROBLEMS; LORAZEPAM WITH HALLUCINATIONS; PENICILLIN, RASH; SULFA, RASH; AMBIEN HALLUCINATIONS. HOME MEDICATIONS: Include famotidine 20 mg twice a day; DuoNeb updrafts; cevimeline 30 mg a day; lisinopril 10 mg a day; Singulair 10 mg a day; Plaquenil 200 mg 2 a day; Nexium 40 mg a day; Lyrica 150 mg a day; morphine ER 1 tablet twice a day; furosemide 20 mg a day; KCl 10 mEq daily twice a day; prednisone 5 mg a day; baby aspirin. FAMILY HISTORY: Noncontributory. SOCIAL HISTORY: The patient is a former smoker and quit approximately 15 years ago. REVIEW OF SYSTEMS: She denies any fever. She denies any chills or sweats. She denies any chest pain. She does complain of shortness of breath and wheezing. She does complain of some increased edema. No recent change in bladder or bowels. She does complain of chronic joint and back pain. PHYSICAL EXAMINATION: GENERAL: She has been on BiPAP. To interview her, put her on a nasal cannula and she tolerated that fairly well. HEENT: Sclerae nonicteric. Mucous membranes appear a little dry. HEART: Regular in the 70s. LUNGS: With fairly decent breath sounds at this time. ABDOMEN: Soft. EXTREMITIES: Lower extremities reveal some edema. IMPRESSION: HISTORY AND PHYSICAL [id number] NIKKO SKELTON 1. Respiratory failure with hypoxia, on hypercapnia. 2. Chronic obstructive pulmonary disease. 3. Rheumatoid arthritis, on immunosuppressive therapy. 4. Pulmonary fibrosis. 5. Chronic pain with pain pump. PLAN: Admit ICU, BiPAP for now. We will wean nasal cannula as tolerates. Her pain pump is continuing right now. I am going to hold her long-acting morphine. She has been weaning down. She is only down to 15 mg a day and just give her some p.r.n. as needed to avoid withdrawal, but I want to try to avoid any respiratory suppression at this time. She is started on pulmonary toilet, pulmonary consult, IV antibiotics. Her labs suggest that she is dry. Her recent echo shows a normal EF with normal valvular structures. Copy is placed on her paper chart. See orders for rest of plan. TRANSINT:[id number] Voice Confirmation ID: [id number] DOCUMENT ID: [id number] RIVAK CHAVIRA DO at 1322 CC: [id number] DICTATION DATE: 01/04/19 0539 CUSTOMS EXAMINER: 01/04/19 0821 ADM IN [place] [address] [place] [address]
--- NOTE | 2019-01-04 19:00 | NUR ---
REPORT [id number] AND ASSESSMENT COMPLETED. SEE FLOWSHEET FOR FULL DETAILS. VSS. PT IS ON BIPAP. CALM WITH SAT OF 95. WILL MONITOR CLOSELY THROUGHOUT SHIFT
--- NOTE | 2019-01-04 21:00 | NUR ---
2100 MEDS GIVEN. VSS. WILL MONITOR
--- NOTE | 2019-01-04 23:00 | NUR ---
REASSESSMENT COMPLETED. SEE FLOWSHEET
[2019-01-05] VITALS (23 sets, daily range): BP systolic 107–134; BP diastolic 49–80
--- NOTE | 2019-01-05 01:36 | NUR ---
BREATHING TREATMENT GIVEN BY RT. NO OTHER CHANGES AT THIS TIME. VSS. WILL MONITOR
[2019-01-05 06:10] LABS: ALBUMIN 3.2 g/dL (3.4-5.0); ANION GAP 6.4 mmol/L (8-16); BILIRUBIN - TOTAL 0.21 mg/dL (0.2-1.3); CALCIUM 8.9 mg/dL (8.5-10.1); CARBON DIOXIDE 33.3 mmol/L (21.0-32.0); CREATININE - SERUM 1.2 mg/dL (0.6-1.3); PROTEIN - SERUM 5.7 g/dL (6.4-8.2)
[2019-01-05 06:11] LABS: BASOPHILS 0 % (0-2); EOSINOPHILS 0 % (0-7); HEMOGLOBIN 10.8 g/dL (12-16); IMMATURE GRANULOCYTES 0.2 % (0-5); LYMPHOCYTES 5.1 % (15-50); MCH 29.5 pg (26.0-34.0); MCHC 31.8 g/dL (31.0-37.0); MCV 92.9 fL (80.0-100.0); MEAN PLATELET VOLUME 10.3 fL (7.4-10.4); MONOCYTES 5.3 % (2-11); NEUTROPHILS 89.4 % (40-80); PLATELET COUNT 124 10x3/uL (130-400); RBC 3.66 10x6/uL (4.00-5.40); RDW 15.7 % (11.5-14.5)
[2019-01-05 06:12] LABS: WBC 8.5 10x3/uL (4.8-10.8)
[2019-01-05 06:15] LABS: POTASSIUM - SERUM 3.7 mmol/L (3.5-5.1)
[2019-01-05 10:28] LABS: % SATURATION 21 % (15-55); IRON 71 ug/dl (35-150); TOTAL IRON BIND CAPACITY 331 ug/dl (260-445); UNSAT IRON BIND CAPACITY 260 ug/dl (150-375)
--- NOTE | 2019-01-05 18:59 | NUR ---
1630-AMBULATED TO RESTROOM WITH DIFFICULTY-SEVERE PAIN TO LEGS 1700-NOTIFIED DR TONY OF INCREASED PAIN LEVEL-ORDER RECIEVED AND NOTED 1800-MS CONTIN 15MG PO GIVEN AND STRESSED TO PT TO WEAR BIPAP TONIGHT
--- NOTE | 2019-01-05 19:00 | NUR ---
REPORT RECEIVED CARE ASSUMED PT LAYING IN BED RESTING. VSS. NO SIGNS OF ACUTE DISTRESS NOTED WILL CONTINUE TO MONITOR. ASSESSMENT DONE SEE FLOW SHEET. WILL CONITNUE TO LUIS.
--- NOTE | 2019-01-05 21:00 | NUR ---
MEDS GIVEN PER MAR NO DIFFICULTY SWALLOWING NOTED WILL CONTINUE TO MONITOR.
--- NOTE | 2019-01-05 23:00 | NUR ---
REASSESSMENT DONE SEE FLOW SHEET. VSS.
[2019-01-06] VITALS (20 sets, daily range): BP systolic 106–1115; BP diastolic 47–67; Ht 165.1 cm; Wt 92.0 kg
--- NOTE | 2019-01-06 01:00 | NUR ---
PT RESTING COMFORTABLEY VSS NO SIGNS OF ACUTE DISTRESS NOTED WILL CONTINUE TO MONITOR.
--- NOTE | 2019-01-06 02:59 | NUR ---
REASSESSMENT DONE SEE FLOW SHEET. VSS.
[2019-01-06 05:23] LABS: BASOPHILS 0 % (0-2); EOSINOPHILS 0 % (0-7); HEMATOCRIT 33.2 % (36.0-48.0); HEMOGLOBIN 10.8 g/dL (12-16); IMMATURE GRANULOCYTES 0.2 % (0-5); LYMPHOCYTES 2.9 % (15-50); MCH 29.7 pg (26.0-34.0); MCHC 32.5 g/dL (31.0-37.0); MCV 91.2 fL (80.0-100.0); MEAN PLATELET VOLUME 9.8 fL (7.4-10.4); MONOCYTES 5.3 % (2-11); NEUTROPHILS 91.6 % (40-80); PLATELET COUNT 111 10x3/uL (130-400); RBC 3.64 10x6/uL (4.00-5.40); RDW 15.4 % (11.5-14.5); WBC 9.2 10x3/uL (4.8-10.8)
--- NOTE | 2019-01-06 05:30 | NUR ---
DR ROMERO INFORMED OF CONSULT. VSS WILL CONTINUE TO MONITOR.
[2019-01-06 05:50] LABS: ALBUMIN 3.2 g/dL (3.4-5.0); ANION GAP 10.1 mmol/L (8-16); BILIRUBIN - TOTAL 0.24 mg/dL (0.2-1.3); CALCIUM 8.8 mg/dL (8.5-10.1); CARBON DIOXIDE 31.4 mmol/L (21.0-32.0); CREATININE - SERUM 1.3 mg/dL (0.6-1.3); POTASSIUM - SERUM 3.5 mmol/L (3.5-5.1); PROTEIN - SERUM 5.8 g/dL (6.4-8.2)
--- NOTE | 2019-01-06 08:18 | NUR ---
BREAKFAST TRAY SERVED AND PT FEEDS SELF WITH OUT PROBLEMS. 5LNC SP02 98%. ORIENTED X 3 PLEASANT. REC'D ORDERS TO KEEP NPO AFTER BREAKFAST.
--- NOTE | 2019-01-06 08:34 | NUR ---
DR ROMERO HERE AND HE DISCUSSED WITH PT RISK AND BENIFITS OF PTCA TODAY. PT AGREES WITH DECISION TO HAVE HEART CATH. LOVENOX HELD.INSTRUCTED NPO. PT VERB UNDERSTANDING.
--- NOTE | 2019-01-06 09:38 | NUR ---
pt to laboratory assistant. concents on chart. pre op meds given.
--- NOTE | 2019-01-06 10:19 | NUR ---
REC'D BACK TO CVICU FROM CAMP ADVISOR. PT AWAKE AND ORIENTED. SLIGHTLY DROWSEY. PLACED ON BIPAP WHILE SLEEPING. VSS, RT GROIN DSNG CDI. PPP. FAMILY AT BS.
--- NOTE | 2019-01-06 10:26 | NUR ---
DR ROMERO HERE AND SPOKE TO FAMILY AT BS.
--- NOTE | 2019-01-06 12:37 | NUR ---
DR GUEVARA HERE AND HE SPOKE TO PT AND SIG OTHER AT BS. BIPAP TAKEN OFF 5L HIGH FLOW PLACED. PT AWAKE AND ORIENTED.
--- NOTE | 2019-01-06 17:58 | MORECARE ---
CASE MANAGEMENT DISCHARGE SUMMARY PATIENT: NIKKO SKELTON UNIT: [id number] ADM DATE: 01/03/19 AGE: 63 : [birth year] SEX: F ROOM/BED: [facility] AUTHOR: AVE HOOD PHYSICIAN: REFERRING PHYSICIAN: RIVKA CHAVIRA DO DATE OF SERVICE: 01/06/19 Discharge Plan Patient Name: NIKKO SKELTON [facility] [facility] 1955 Planned Disposition: Home Anticipated Discharge Date: Discharge Date: Expected LOS: Initial Reviewer: [email or web address] Initial Review Date: 01/04/2019 Generated: 01/06/19 6:58 pm Patient Name: NIKKO SKELTON Page [id number] at 1758 All edits/amendments must be made on the electronic document DICTATION DATE: 01/06/191756 LOAN WORKOUT OFFICER: SWETA 01/06/191756 RPT#: [id number] DC DATE: STATUS: ADM IN [facility] [address] [place] [address] END OF REPORT
--- NOTE | 2019-01-06 18:06 | MORECARE ---
CASE MANAGEMENT DISCHARGE SUMMARY PATIENT: NIKKO SKELTON UNIT: [id number] ADM DATE: 01/03/19 AGE: 63 : 51 SEX: F ROOM/BED: [facility] AUTHOR: AVE HOOD PHYSICIAN: REFERRING PHYSICIAN: RIVKA CHAVIRA DO DATE OF SERVICE: 01/06/19 Discharge Plan Patient Name: NIKKO SKELTON [facility] [facility] 1955 Planned Disposition: Home Anticipated Discharge Date: Discharge Date: Expected LOS: Initial Reviewer: [email or web address] Initial Review Date: 01/04/2019 Generated: 01/06/19 7:05 pm DCPIA - Discharge Planning Initial Assessment Updated by [id number]: Shobha Burnham on 01/06/19 5:59 pm * Is the patient Alert and Oriented? Yes * How many steps to enter\exit or inside your home? * PCP NINA * Pharmacy [facility] * Preadmission Environment Home with Family * ADLs Independent * Other Equipment HOME & PORTABLE 02, NEBULIZER, WALKER, W/C, CANE, ELECTRIC W/C * List name and contact numbers for known caregivers / representatives who currently or will assist patient after discharge: GUERO AVILA - [facility] OTHER- [phone] * Verbal permission to speak to the caregivers and representatives has been obtained from the patient. No * Community resources currently utilized None * Additional services required to return to the preadmission environment? No * Can the patient safely return to the preadmission environment? Yes * Has this patient been hospitalized within the prior 30 days at any hospital? No Last DP export: 01/06/19 4:58 pm Patient Name: NIKKO SKELTON Page 14019 at 1806 All edits/amendments must be made on the electronic document DICTATION DATE: 01/06/191804 QUALITY TESTER: SWETA 01/06/191804 RPT#: [id number] DC DATE: STATUS: ADM IN [facility] [address] [place] [address] END OF REPORT
--- NOTE | 2019-01-06 18:13 | MORECARE ---
CASE MANAGEMENT DISCHARGE SUMMARY PATIENT: NIKKO SKELTON UNIT: [id number] ADM DATE: 01/03/19 AGE: 63 : 51 SEX: F ROOM/BED: [facility] AUTHOR: ERWIN,DOC PHYSICIAN: REFERRING PHYSICIAN: RIVKA CHAVIRA DO DATE OF SERVICE: 01/06/19 Discharge Plan Patient Name: NIKKO SKELTON Facility: [facility]:[place] : 1955 Planned Disposition: Home Anticipated Discharge Date: Discharge Date: Expected LOS: Initial Reviewer: [email or web address] Initial Review Date: 01/04/2019 Generated: 01/06/19 7:13 pm Comments DCP- Discharge Planning Updated by [email or web address]: Shobha Burnham on 01/06/19 5:[address] Patient Name: NIKKO SKELTON Admission Status: ER Accout number: [id number] Admission Date: 01-03-2019 : 1955 Admission Diagnosis:ACUTE AND CHRONIC RESPIRATORY FAILURE WITH HYPOXIA Attending: RIVKA CHAVIRA Current LOS: 3 Anticipated DC Date: Planned Disposition: Home Primary Insurance: MEDICARE A & B Discharge Planning Comments: CM met with patient and significant other (Parker) at bedside after explaining CM role and obtaining verbal consent. Patient lives at home with Parker and plans to return there upon discharge. Patient feels this would be a safe discharge. CM discussed availability / needs of home health and medical equipment. Patient states that it sound like she will be needing BIPAP upon discharge. She states that she has home 02 and portable 02 through [employer]. She states the portable unit she has only goes up to 3 L. Patient states that she wants to use a DME for BiPAP that she can get the cleaning machine with it. CM will contact [employer] to find out if they supply this and ask about portable 02. Patient denies any discharge needs at this time. Patient states she will have Parker drive her home upon discharge. CM will continue to follow and assist as needed with discharge planning / needs. Entertainment Centre Manager: Shobha Burnham DCPIA - Discharge Planning Initial Assessment Updated by [email or web address]: Shobha Burnham on 01/06/19 5:59 pm * Is the patient Alert and Oriented? Yes * How many steps to enter\exit or inside your home? * PCP NINA * Pharmacy [facility] * Preadmission Environment Home with Family * ADLs Independent * Other Equipment HOME & PORTABLE 02, NEBULIZER, WALKER, W/C, CANE, ELECTRIC W/C * List name and contact numbers for known caregivers / representatives who currently or will assist patient after discharge: PARKER AVILA - [facility]- [phone] * Verbal permission to speak to the caregivers and representatives has been obtained from the patient. No * Community resources currently utilized None * Additional services required to return to the preadmission environment? No * Can the patient safely return to the preadmission environment? Yes * Has this patient been hospitalized within the prior 30 days at any hospital? No Last DP export: 01/06/19 5:06 pm Patient Name: NIKKO SKELTON Page 25533 at 1813 All edits/amendments must be made on the electronic document DICTATION DATE: 01/06/191811 CONCRETE CRUSHER LOADER OPERATOR: SWETA 01/06/191811 RPT#: [id number] DC DATE: STATUS: ADM IN [facility] [address] [place] [address] END OF REPORT
--- NOTE | 2019-01-06 19:40 | NUR ---
REC'D TO CARE, UNDRAPED ARTIST MODEL PER FLOWSHEET. PT ALERT AND ORIENTED, VSS. R GROIN SITE C/D/I WITH PALP PULSES. PT WITH TRANSFER ORDERS - WILL BE TRANSFERRED TO FLOOR AFTER REPORT CALLED. C/L IN REACH. PT NOTIFIED OF PLAN TO MOVE.
--- NOTE | 2019-01-06 20:15 | NUR ---
PT C/O "SORENESS" AT PIV SITE - D/C'D INTACT. NEW 22GA PIV SITED TO L FA X 1 STICK, GOOD BLOOD RETURN NOTED.
--- NOTE | 2019-01-06 20:32 | NUR ---
REPORT CALLED TO [facility] ON MED 2.
--- NOTE | 2019-01-06 21:15 | NUR ---
PT TRANSFERRED TO 2124 VIA W/C.
--- NOTE | 2019-01-06 22:15 | NUR ---
RECEIVED PT VIA WHEELCHAIR FROM CV/ICU, PT DENIES ANY NEEDS AT THIS TIME, BED IS LOW, SRX2, CALL LIGHT IN REACH, WILL CONTINUE PLAN OF CARE
--- NOTE | 2019-01-06 23:30 | NUR ---
CALL RESPRITORY ASKING ABOUT BI-PAP
[2019-01-07] VITALS (7 sets, daily range): BP systolic 121–149; BP diastolic 54–82
--- NOTE | 2019-01-07 05:29 | NUR ---
I have reviewed this patient and I concur with the Shift Assessment completed by the Licensed Practical Nurse today this shift.
--- NOTE | 2019-01-07 07:34 | NUR ---
RESUMING PT CARE, PT LAYING IN BED ALERT AND ORIENTED X4, RESPIRATIONS EVEN AND UNLABORED, BED IS IN LOWEST POSITION WITH BED RAILS UP X2, CALL LIGHT IN REACH. WILL CONTINUE TO MONITOR AND FOLLOW PLAN OF CARE.
--- NOTE | 2019-01-07 09:32 | NUR ---
I have reviewed this patient and I concur with the Shift Assessment completed by the Licensed Practical Nurse today this shift.
--- NOTE | 2019-01-07 13:13 | CN ---
PATIENT NAME:NIKKO SKELTON MEDICAL RECORD: [id number] : 51 LOCATION:D.[place] D.2125 ADMIT DATE: 01/03/19 ACCOUNT: [id number] CONSULTING PHYSICIAN: ABEL ROMERO MD REFERRING PHYSICIAN: RIVKA CHAVIRA DO DATE OF CONSULTATION: 01/06/2019 HISTORY OF PRESENT ILLNESS: A 63-year-old female with a history of obstructive pulmonary disease with remote exacerbation, possible pneumonitis. She has been having marked dyspnea on exertion in excess of her previous for the past month and often noted to have increasing arrhythmias over the past month or so. ECG is abnormal with nonspecific ST-T changes. We are asked to see her concerning her cardiovascular status. LV function has been normal in the past and having some atypical chest pain as well. PAST MEDICAL HISTORY: Includes: 1. History of obstructive pulmonary disease, O2 dependent. 2. Rheumatoid arthritis. 3. Hypertension. MEDICATIONS: Include prednisone 5 mg p.o. every day, Prilosec 40 every day, Singulair 10 every day, morphine sulfate 15 mg p.o. daily, Lyrica 300 every day, lisinopril 10 every day, albuterol, DuoNeb q.i.d., Evoxac 30 mg p.o. every day, Plaquenil 200 every day. ALLERGIES: PENICILLIN, CEPHALOSPORINS, SULFA, DIAZEPAM. SOCIAL HISTORY: Quit smoking several years back. She is a nondrinker. She is able to take care of all the ADLs including some smaller ADLs without O2. REVIEW OF SYSTEMS: The patient reports easy bruising but reports no swollen glands. The patient reports no fever, no night sweats, no significant weight gain, no significant weight loss. No significant exercise tolerance. The patient reports no dry eyes, no irritation, no vision change. Patient reports no difficulty hearing and no ear pain. Patient reports no frequent nose bleeds or nose and sinus problems. Patient reports on arm pain on exertion. No shortness of breath while lying down. No history of heart murmur. Patient reports no cough, no wheezing or coughing up blood. Patient reports no abdominal pain, no vomiting. Normal appetite. No diarrhea and not vomiting blood. No nausea and no constipation. Patient reports no incontinence. No difficulty urinating. No hematuria. No increased frequency. Patient reports no muscle aches. No weakness, no arthralgias, no back pain. No swelling of the extremities. Patient reports no abnormal mole, no jaundice, no rashes. Reports no loss of consciousness. No weakness and no numbness. No seizures, dizziness, or headaches. The patient reports no depression, no sleep disturbance, feeling safe in a relationship and no alcohol abuse. Patient reports on fatigue. Reports no runny nose or sinus pressure. No itching, no hives, and no frequent sneezing. PHYSICAL EXAMINATION: GENERAL: Pleasant female in no acute distress, appears stated age. VITAL SIGNS: Blood pressure 112/56, pulse 77 and regular. HEENT: Normocephalic, atraumatic. NECK: No bruits noted. HEART: Regular, frequent extrasystoles. CONSULT REPORT [id number] NIKKO SKELTON BROWN LUNGS: Prolonged expiration phase. ABDOMEN: Soft, nontender. EXTREMITIES: Pulses 2+. No edema. DIAGNOSTIC DATA: ECG shows nonspecific ST-T changes, frequent PACs with aberrant conduction. IMPRESSION: Plan for angiography, intervention based on the above. TRANSINT:[id number] Voice Confirmation ID: [id number] DOCUMENT ID: [id number] ABEL ROMERO MD at 1313 CC: [id number] DICTATION DATE: 01/06/19900 CLEANERS: 01/06/19 1108 ADM IN [place] [id number]
--- NOTE | 2019-01-07 13:13 | OP ---
PATIENT NAME: NIKKO SKELTON MEDICAL RECORD: [id number] :[birth year] LOCATION:D.M2 D.2125 ADMISSION DATE:01/03/19 SURGEON: ABEL ROMERO MD DATE OF OPERATION: 01/06/2019 PROCEDURE: Left heart catheterization, selective coronary angiography, right femoral artery approach. CATHETERS: A 5-Chilean sheath, 5/4 left and right Mely, 5/4 pig. The procedure was well tolerated. The patient returned to fernández. Sheath removed. ExoSeal device placed. FINDINGS: Left ventriculography in 30-degree MARCOS view: Normal wall motion. Normal systolic function. CORONARY ANATOMY: LEFT MAIN: Left main is free of disease. LAD: Free of disease in the diagonal system. CIRCUMFLEX: Free of disease in the marginal system. RIGHT CORONARY ARTERY: Dominant artery, gives rise to PDA, free of disease. IMPRESSION: Normal LV systolic function, normal coronary anatomy. TRANSINT:[id number] Voice Confirmation ID: [id number] DOCUMENT ID: [id number] ABEL ROMERO MD at 1313 CC: [id number] DICTATION DATE: 01/06/19 0955 CERTIFIED ORTHOTIC FITTER: 01/06/19 1157 ADM IN [facility] [address] [place] [address]
--- NOTE | 2019-01-07 14:56 | NUR ---
STOOL SAMPLE SENT TO LAB ORDERED.
--- NOTE | 2019-01-07 17:48 | NUR ---
PER DR GUEVARA MAY ORDER PT'S HOME DOSE OF FLONASE, ORDER NOTED.
--- NOTE | 2019-01-07 19:45 | NUR ---
PT SITTING ON SIDE OF BED. USING PHONE. DENIES ANY NEEDS. NAME AND DATE PLACED ON BOARD. PT HAS NO S/S OF DISTRESS. WILL CPOC
--- NOTE | 2019-01-07 22:35 | NUR ---
PT UP TO SHOWER. MINIMAL ASSIST. PT RIGHT GROIN DRSG CHANGED. CDI. NO BLEEDING NO S/S OF HEMATOMA. PT DENIES ANY NEEDS. WILL CPOC
--- NOTE | 2019-01-07 22:48 | NUR ---
PT ASKING FOR ZOFRAN FOR NAUSEA.
--- NOTE | 2019-01-08 02:21 | NUR ---
PT ASLEEP. BIPAP ON, RESP EVEN AND UNLABORED. WILL CPOC
[2019-01-08 04:31] VITALS: BP 117/70
--- NOTE | 2019-01-08 05:05 | NUR ---
PT COMPLAINS ABOUT HAVING 2 NOSES BLEEDS THROUGH OUT NIGHT. ONCE DURING SHOWER AND OTHER AN HOUR AGO WHEN GETTING UP TO USE RESTROOM. DID NOT LAST LONGER THAN A FEW MINS. NO OTHER COMPLAINTS. WILL PASS IN REPORT.
--- NOTE | 2019-01-08 05:57 | NUR ---
PT TOOK BIPAP OFF AND PLACED NC 4L EATING A SNACK, DENIES ANY OTHER NEEDS. WILL CPOC
[2019-01-08 06:54] LABS: BASOPHILS 0.2 % (0-2); EOSINOPHILS 0 % (0-7); HEMATOCRIT 36.4 % (36.0-48.0); HEMOGLOBIN 11.5 g/dL (12-16); IMMATURE GRANULOCYTES 1.8 % (0-5); LYMPHOCYTES 3.6 % (15-50); MCH 29.5 pg (26.0-34.0); MCHC 31.6 g/dL (31.0-37.0); MCV 93.3 fL (80.0-100.0); MEAN PLATELET VOLUME 11.5 fL (7.4-10.4); MONOCYTES 7.4 % (2-11); PLATELET COUNT 156 10x3/uL (130-400); RDW 15.3 % (11.5-14.5); WBC 10.5 10x3/uL (4.8-10.8)
[2019-01-08 07:29] LABS: ANION GAP 10.6 mmol/L (8-16); CALCIUM 8.6 mg/dL (8.5-10.1); CREATININE - SERUM 1.1 mg/dL (0.6-1.3); POTASSIUM - SERUM 3.6 mmol/L (3.5-5.1)
--- NOTE | 2019-01-08 08:00 | NUR ---
AM ROUNDS COMPLETED. INTRODUCED MYSELF TO PT PRIMARY RN FOR TODAYS SHIFT. PT IS A&O SITTING UP IN BED RESTING QUIETLY. RR NONLABORED WITH NC @3L IN PLACE. SHIFT ASSESSMENT COMPLETED. PT STATES SHE SLEPT WELL AND DENIES ANY CURRENT PAIN OR NEEDS AND IS JUST WAITING ON BREAKFAST. CL IN REACH, BED IN LOWEST, SIDE RAILS X2. WILL CTM.
[2019-01-08 09:45] VITALS: BP 119/69
--- NOTE | 2019-01-08 10:00 | NUR ---
PTS L.FA PIV IS BURNING AND APPEARS INFILTRATED. D/C WITH CATHETER TIP FULLY INTACT. RESTARTED NEW 22 GUAGE TO R.FA X2 STICKS. NS INFUSING @KVO WITH INTERMITT. ANBX. PT VOICED THANKS AND STATES IT FEELS MUCH BETTER. PT SITTING UP ON EDGE OF BED WITH FAMILY AT BEDSIDE. PT DENIES ANY CURRENT PAIN OR NEEDS AT THIS TIME. CL IN REACH, BED IN LOWEST, SIDE RAILS X2. WILL CPOC.
--- NOTE | 2019-01-08 14:42 | NUR ---
PT SITTING UP IN BED RESTING QUIETLY VISITING WITH FAMILY. PT C/O BEING NAUSEATED WHEN SHE GETS ON HER BREATHING MACHINE. PROVIDED PT WITH PRN ZOFRAN AND WILL HAVE RESPIRATORY COME PUT HER MACHINE ON. PT VOICED THANKS. CL IN REACH, BED IN LOWEST, SIDE RAILS X2. WILL CTM.
--- NOTE | 2019-01-08 14:45 | NUR ---
PT CALLED REQUESTING SOMETHING FOR NAUSEA. PT STATES WEARING HER BIPAP MASK GETS HER "WORKED UP" AND IS REQUESTING A PRN ANTI-ANXIETY MEDICATION FOR IT WELL. WILL DISCUSS WITH UPON HIS ROUNDS AND SHE VOICED THANKS. PT SITTING UP ON EDGE OF BED, RR NONLABORED WITH NC @3L IN PLACE, PT STATES IN ABOUT AN HR SHE WOULD LIKE TO WEAR HER BIPAP, WILL PAGE RESPIRATORY AT THAT TIME. CL IN REACH, BED IN LOWEST, SIDE RAILS X2. NO FURTHER NEEDS AT THIS TIME. WILL CTM.
[2019-01-08 15:52] VITALS: BP 115/58
--- NOTE | 2019-01-08 16:03 | MORECARE ---
CASE MANAGEMENT DISCHARGE SUMMARY PATIENT: NIKKO SKELTON UNIT: [id number] ADM DATE: 01/03/19 AGE: 63 : 51 SEX: F ROOM/BED: D.8200 AUTHOR: ERWINDOC PHYSICIAN: REFERRING PHYSICIAN: RIVKA CHAVIRA DO DATE OF SERVICE: 01/08/19 Discharge Plan Patient Name: NIKKO SKELTON Facility: [facility]:[place] : 1955 Planned Disposition: Home Anticipated Discharge Date: 01/09/19 Discharge Date: Expected LOS: 6 Initial Reviewer: [email or web address] Initial Review Date: 01/04/2019 Generated: 01/08/19 5:03 pm DCP- Discharge Planning Updated by [email or web address]: Shobha Burnham on 01/06/19 5:[address] Patient Name: NIKKO SKELTON Admission Status: ER Accout number: [id number] Admission Date: 01-03-2019 : 1955 Admission Diagnosis:ACUTE AND CHRONIC RESPIRATORY FAILURE WITH HYPOXIA Attending: RIVKA CHAVIRA Current LOS: 3 Anticipated DC Date: Planned Disposition: Home Primary Insurance: MEDICARE A & B Discharge Planning Comments: CM met with patient and significant other (Parker) at bedside after explaining CM role and obtaining verbal consent. Patient lives at home with Parker and plans to return there upon discharge. Patient feels this would be a safe discharge. CM discussed availability / needs of home health and medical equipment. Patient states that it sound like she will be needing BIPAP upon discharge. She states that she has home 02 and portable 02 through [employer]. She states the portable unit she has only goes up to 3 L. Patient states that she wants to use a DME for BiPAP that she can get the cleaning machine with it. CM will contact [employer] to find out if they supply this and ask about portable 02. Patient denies any discharge needs at this time. Patient states she will have Parker drive her home upon discharge. CM will continue to follow and assist as needed with discharge planning / needs. Curtain Drier: Shobha Burnham DCPIA - Discharge Planning Initial Assessment Updated by [email or web address]: Shobha Burnham on 01/06/19 5:59 pm * Is the patient Alert and Oriented? Yes * How many steps to enter\exit or inside your home? * PCP NINA * Pharmacy [facility] * Preadmission Environment Home with Family * ADLs Independent * Other Equipment HOME & PORTABLE 02, NEBULIZER, WALKER, W/C, CANE, ELECTRIC W/C * List name and contact numbers for known caregivers / representatives who currently or will assist patient after discharge: PARKER AVILA - [employer]- [phone] * Verbal permission to speak to the caregivers and representatives has been obtained from the patient. No * Community resources currently utilized None * Additional services required to return to the preadmission environment? No * Can the patient safely return to the preadmission environment? Yes * Has this patient been hospitalized within the prior 30 days at any hospital? No External Providers External Provider: [facility] Next Contact Date: 01/08/2019 Service Request Date: Service Type: Resolution: Reviewer: Comments: Last DP export: 01/06/19 5:13 pm Patient Name: NIKKO SKELTON Page 42267 at 1603 All edits/amendments must be made on the electronic document DICTATION DATE: 01/08/19 160 BUSINESS APPLICATIONS ANALYST: SWETA 01/08/19 160 RPT#: [id number] DC DATE: STATUS: ADM IN [facility] [address] [place] [address] END OF REPORT
--- NOTE | 2019-01-08 16:14 | MORECARE ---
CASE MANAGEMENT DISCHARGE SUMMARY PATIENT: NIKKO SKELTON UNIT: [id number] ADM DATE: 01/03/19 AGE: 63 : 51 SEX: F ROOM/BED: D.1888 AUTHOR: ERWINDOC PHYSICIAN: REFERRING PHYSICIAN: RIVKA CHAVIRA DO DATE OF SERVICE: 01/08/19 Discharge Plan Patient Name: NIKKO SKELTON Facility: [facility]:[place] : 1955 Planned Disposition: Home Anticipated Discharge Date: 01/09/19 Discharge Date: Expected LOS: 6 Initial Reviewer: [email or web address] Initial Review Date: 01/04/2019 Generated: 01/08/19 5:14 pm DCP- Discharge Planning Updated by [email or web address]: Shobha Burnham on 01/06/19 5:[address] Patient Name: NIKKO SKELTON Admission Status: ER Accout number: [id number] Admission Date: 01-03-2019 : 1955 Admission Diagnosis:ACUTE AND CHRONIC RESPIRATORY FAILURE WITH HYPOXIA Attending: RIVKA CHAVIRA Current LOS: 3 Anticipated DC Date: Planned Disposition: Home Primary Insurance: MEDICARE A & B Discharge Planning Comments: CM met with patient and significant other (Parker) at bedside after explaining CM role and obtaining verbal consent. Patient lives at home with Parker and plans to return there upon discharge. Patient feels this would be a safe discharge. CM discussed availability / needs of home health and medical equipment. Patient states that it sound like she will be needing BIPAP upon discharge. She states that she has home 02 and portable 02 through [employer]. She states the portable unit she has only goes up to 3 L. Patient states that she wants to use a DME for BiPAP that she can get the cleaning machine with it. CM will contact [employer] to find out if they supply this and ask about portable 02. Patient denies any discharge needs at this time. Patient states she will have Parker drive her home upon discharge. CM will continue to follow and assist as needed with discharge planning / needs. Brief Writer: Shobha Burnham DCPIA - Discharge Planning Initial Assessment Updated by [email or web address]: Shobha Burnham on 01/06/19 5:59 pm * Is the patient Alert and Oriented? Yes * How many steps to enter\exit or inside your home? * PCP NINA * Pharmacy [facility] * Preadmission Environment Home with Family * ADLs Independent * Other Equipment HOME & PORTABLE 02, NEBULIZER, WALKER, W/C, CANE, ELECTRIC W/C * List name and contact numbers for known caregivers / representatives who currently or will assist patient after discharge: PARKER AVILA - [employer]- [phone] * Verbal permission to speak to the caregivers and representatives has been obtained from the patient. No * Community resources currently utilized None * Additional services required to return to the preadmission environment? No * Can the patient safely return to the preadmission environment? Yes * Has this patient been hospitalized within the prior 30 days at any hospital? No Coverage Notice Reviewer: [email or web address] Delgado Notice Issued Date-Time: 01/08/2019 14:25 Notice Type: Patient Choice Letter Notice Delivered To: Patient Relationship to Patient: Social Media Content Manager Name: Delivery Method: HAND - Hand Delivered [place] Days: Prior Verbal Notification: Recipient Understood Notice: Yes Recipient Signature: Yes Med Rec Note Co-signed by Attending: Coverage Notice Comment: CESARIO Reviewer: [email or web address] Chaya Delgado Notice Issued Date-Time: 01/08/2019 14:25 Notice Type: IM Discharge Notice Notice Delivered To: Patient Relationship to Patient: Social Media Content Manager Name: Delivery Method: HAND - Hand Delivered [place] Days: Prior Verbal Notification: Recipient Understood Notice: Yes Recipient Signature: Yes Med Rec Note Co-signed by Attending: Coverage Notice Comment: Last DP export: 01/08/19 3:03 p Patient Name: NIKKO SKELTON Page [id number] at 1614 All edits/amendments must be made on the electronic document DICTATION DATE: 01/08/19 161 SAP BW DEVELOPER: SWETA 01/08/19 161 RPT#: [id number] DC DATE: STATUS: ADM IN [facility] [address] [place] [address] END OF REPORT
--- NOTE | 2019-01-08 16:23 | MORECARE ---
CASE MANAGEMENT DISCHARGE SUMMARY PATIENT: NIKKO SKELTON UNIT: [id number] ADM DATE: 01/03/19 AGE: 63 : 51 SEX: F ROOM/BED: D.6677 AUTHOR: ERWIN,DOC PHYSICIAN: REFERRING PHYSICIAN: RIVKA CHAVIRA DO DATE OF SERVICE: 01/08/19 Discharge Plan Patient Name: NIKKO SKELTON Facility: [facility]:[place] : 1955 Planned Disposition: Home Anticipated Discharge Date: 01/09/19 Discharge Date: Expected LOS: 6 Initial Reviewer: [id number] Initial Review Date: 01/04/2019 Generated: 01/08/19 5:22 pm Comments DCP- Discharge Planning Updated by [email or web address]: Parviz Delgado on 01/08/19 3:[address] Patient Name: NIKKO SKELTON Encounter No: [id number] : 1955 Primary Insurance: MEDICARE A & B Anticipated DC Date: 01-09-2019 Planned Disposition: Home DCP follow-up note: CM RECEIVED ORDER FOR TRILOGY, MET WITH PT IN ROOM, PT WANTS TRILOGY FROM [facility] SHE HAS OXYGEN FROM THEM ALREADY. PROVIDER LIST GIVEN, CHOICE SIGNED FOR [facility]. IMPORTANT MESSAGE FROM [employer] PROVIDED AND EXPLAINED. PT DENIES FURTHER DISCHARGE NEEDS OF REHAB OR HOME HEALTH. CM CALLED [facility], , SPOKE TO RAYMOND AND PROVIDED REFERRAL INFORMATION. CM FAXED REFERRAL TO [facility], . [facility] ADVISED THEY WILL PROCESS ORDER FOR TRILOGY MACHINE, CLEANING MACHINE FOR THE TRILOGY IS NOT COVERED BY MEDICARE, [facility] IS $275. CM NOTIFIED PT WHO STATES SHE WILL PRIVATELY PURCHASE THE CLEANING MACHINE FROM [facility]. CM WAITING ON [facility] TO PROCESS AND PROVIDE TRILOGY MACHINE TO PT FOR DISCHARGE HOME. Parviz Delgado, JAMIE CADENA DCP- Discharge Planning Updated by [id number]: Shobha Burnham on 01/06/19 5:[address] Patient Name: NIKKO SKELTON Admission Status: ER Accout number: [id number] Admission Date: 01-03-2019 : 1955 Admission Diagnosis:ACUTE AND CHRONIC RESPIRATORY FAILURE WITH HYPOXIA Attending: RIVKA CHAVIRA Current LOS: 3 Anticipated DC Date: Planned Disposition: Home Primary Insurance: MEDICARE A & B Discharge Planning Comments: CM met with patient and significant other (Parker) at bedside after explaining CM role and obtaining verbal consent. Patient lives at home with Parker and plans to return there upon discharge. Patient feels this would be a safe discharge. CM discussed availability / needs of home health and medical equipment. Patient states that it sound like she will be needing BIPAP upon discharge. She states that she has home 02 and portable 02 through [facility]. She states the portable unit she has only goes up to 3 L. Patient states that she wants to use a DME for BiPAP that she can get the cleaning machine with it. CM will contact [employer] to find out if they supply this and ask about portable 02. Patient denies any discharge needs at this time. Patient states she will have Parker drive her home upon discharge. CM will continue to follow and assist as needed with discharge planning / needs. Vest Backer: Shobha Burnham [facility] - Discharge Planning Initial Assessment Updated by [id number]: Shobha Burnham on 01/06/19 5:59 pm * Is the patient Alert and Oriented? Yes * How many steps to enter\exit or inside your home? * PCP NINA * Pharmacy [facility] * Preadmission Environment Home with Family * ADLs Independent * Other Equipment HOME & PORTABLE 02, NEBULIZER, WALKER, W/C, CANE, ELECTRIC W/C * List name and contact numbers for known caregivers / representatives who currently or will assist patient after discharge: PARKER AVILA - SIGNIFICANT OTHER- [phone] * Verbal permission to speak to the caregivers and representatives has been obtained from the patient. No * Community resources currently utilized None * Additional services required to return to the preadmission environment? No * Can the patient safely return to the preadmission environment? Yes * Has this patient been hospitalized within the prior 30 days at any hospital? No Coverage Notice Reviewer: [id number] - Parviz Delgado Notice Issued Date-Time: 01/08/2019 14:25 Notice Type: Patient Choice Letter Notice Delivered To: Patient Relationship to Patient: Applications Support Specialist Name: Delivery Method: HAND - Hand Delivered Socorro Days: Prior Verbal Notification: Recipient Understood Notice: Yes Recipient Signature: Yes Med Rec Note Co-signed by Attending: Coverage Notice Comment: CESARIO Reviewer: [id number] - Parviz Delgado Notice Issued Date-Time: 01/08/2019 14:25 Notice Type: IM Discharge Notice Notice Delivered To: Patient Relationship to Patient: Applications Support Specialist Name: Delivery Method: HAND - Hand Delivered Socorro Days: Prior Verbal Notification: Recipient Understood Notice: Yes Recipient Signature: Yes Med Rec Note Co-signed by Attending: Coverage Notice Comment: Last DP export: 01/08/19 3:14 p Patient Name: NIKKO SKELTON Page [id number] at 1623 All edits/amendments must be made on the electronic document DICTATION DATE: 01/08/191621 MARIONETTE PERFORMER: SWETA 01/08/191621 RPT#: [id number] DC DATE: STATUS: ADM IN [facility] [address] [place] [address] END OF REPORT
--- NOTE | 2019-01-08 18:59 | NUR ---
BEDSIDE SHIFT REPORT COMPLETED. PT SITTING UP IN BED RESTING QUIETLY IN VERY CIGAR INSPECTOR MOOD. PT STATES SHE HAD A GOOD DAY AND IS FEELING GREAT OVERALL. PT DID STATE SAID HE WILL GIVE HER SOMETHING FOR ANXIETY WITH HER BIPAP MACHINE, NO CURRENT ORDERS BUT NIGHTSHIFT WILL BE LOOKING FOR IT. PT VOICED TAHNKS. CL IN REACH, BED IN LOWEST, SIDE RAILS X2. WILL CTM.
--- NOTE | 2019-01-08 21:09 | NUR ---
SPOKE TO DR GUEVARA AND RECEIVED AN ORDER FOR XANAX 0.25MG Q8H PRN.
--- NOTE | 2019-01-08 21:47 | NUR ---
NIGHT MEDICATIONS GIVEN. PT VERBALIZED UNDERSTANDING IN ALL MEDICATIONS. PT IS AAO. 4L O2 HIGH FLOW NC. PT GOING ON BIPAP IN APPROX 30 MINS GAVE A XANAX FOR ANXIETY. PT DENIES ANY OTHER NEEDS. NO S/S OF DISTRESS. WILL CPOC
[2019-01-08 21:53] VITALS: BP 95/68
[2019-01-09] VITALS: BP 122/66
--- NOTE | 2019-01-09 04:16 | NUR ---
PT SITTING ON SIDE OF BED. UP TO USE RESTROOM. COMPLAINS OF SMALL AMOUNT OF DIZZYNESS. 3L O2 HIGH FLOW NC AT THIS TIME. PT DENIES ANY NEEDS. NO S/S OF DISTRESS. PT WILL CALL FOR ASSIST WHEN NEEDED. WILL CPOC
[2019-01-09 05:47] VITALS: BP 117/64
[2019-01-09 05:51] LABS: BASOPHILS 0.1 % (0-2); EOSINOPHILS 0 % (0-7); HEMATOCRIT 34.4 % (36.0-48.0); HEMOGLOBIN 10.9 g/dL (12-16); IMMATURE GRANULOCYTES 3.4 % (0-5); LYMPHOCYTES 2.4 % (15-50); MCH 29.5 pg (26.0-34.0); MCHC 31.7 g/dL (31.0-37.0); MCV 93.2 fL (80.0-100.0); MEAN PLATELET VOLUME 10.8 fL (7.4-10.4); MONOCYTES 7.9 % (2-11); NEUTROPHILS 86.2 % (40-80); PLATELET COUNT 143 10x3/uL (130-400); RBC 3.69 10x6/uL (4.00-5.40); RDW 15.5 % (11.5-14.5); WBC 9.1 10x3/uL (4.8-10.8)
[2019-01-09 05:55] LABS: ANION GAP 9.7 mmol/L (8-16); CALCIUM 8.2 mg/dL (8.5-10.1); CARBON DIOXIDE 29.2 mmol/L (21.0-32.0); CREATININE - SERUM 1.1 mg/dL (0.6-1.3); POTASSIUM - SERUM 3.9 mmol/L (3.5-5.1)
--- NOTE | 2019-01-09 07:46 | NUR ---
ROUNDING DONE WITH PATIENT TAKING OFF BIPAP AND PLACING HERSELF ON 3L HIGH FLOW. RIGHT WRIST PIV IS SEEN SALINE LOCK. DENIES NEEDS AT THIS TIME. WILL MONITOR.
[2019-01-09 10:02] VITALS: BP 133/60
--- NOTE | 2019-01-09 10:33 | NUR ---
PATIENT STATES THAT SHE DOES NOT WANT TO WEAR THE NON SKID SOCKS.
--- NOTE | 2019-01-09 14:00 | NUR ---
Nutrition follow-up: Diet: Low sodium PO intake 75-100% of meals Labs reviewed; glucose elevated, [place] pt is taking solumedrol +BM Wt: 207# RDN following.
[2019-01-09 15:34] VITALS: BP 155/77
--- NOTE | 2019-01-09 17:35 | NUR ---
MALE FAMILY MEMBER AT [facility], PATIENT IS RESTING QUIETLY ON BIPAP.
--- NOTE | 2019-01-09 18:21 | NUR ---
CALLED [facility] AND SPOKE WITH KEVIN AND TOLD HER THAT OUR BIPAP CAN COME OUT OF ROOM AND START ON HER TRILOGY AT NIGHT.
--- NOTE | 2019-01-09 19:05 | NUR ---
BEDSIDE REPORT RECEIVED. PT IS AAO, SITTING ON SIDE OF BED WITH 3L O2 HIGH FLOW NC. PT DENIES ANY NEEDS AT THIS TIME. FINISHING DINNER TRAY, NO S/S OF DISTRESS. NAME AND DATE PLACED ON BOARD. WILL CALL FOR ASSIST WILL CPOC
[2019-01-09 20:00] VITALS: BP 120/72
--- NOTE | 2019-01-09 22:05 | NUR ---
PT GIVEN NIGHT TIME MEDS. VERBALIZED UNDERSTANDING IN MEDICATIONS. ASSISTED WITH PLACING TRILOGY ON FOR NIGHT SLEEP. PT HAS NO S/S OF DISTRESS. BEDLOW AND CALL LIGHT IN REACH. PT UP TO RESTROOM PRIOR TO BED WITH STEADY GAIT WITH OUT ASSIST. SOME SOB. PT WILL CALL FOR ASSIST WHEN NEEDED. WILL CPOC
[2019-01-10] VITALS: BP 145/64
--- NOTE | 2019-01-10 03:56 | NUR ---
XANAX GIVEN EARLY FOR ANXIETY REGARDING TRILOGY. PT UP TO RESTROOM. TEARS IN EYES VERBALIZING CONCERN FOR MESSING UP WITH WEARING BIPAP AND CAUSING HARM OR TO HER SELF. SPOKE WITH PT AND EDUCATED, PT VERBALIZED UNDERSTANDING AND SEEMED TO CHEER UP AFTER SPEAKING TO NURSE. PT NOW LAYING BACK DOWN. DENIES ANY OTHER NEEDS. WILL CPOC
[2019-01-10 04:00] VITALS: BP 132/68
[2019-01-10 08:07] LABS: ANION GAP 9.7 mmol/L (8-16); CALCIUM 8.6 mg/dL (8.5-10.1); CARBON DIOXIDE 28.5 mmol/L (21.0-32.0); POTASSIUM - SERUM 4.2 mmol/L (3.5-5.1)
[2019-01-10 08:08] LABS: BASOPHILS 0.2 % (0-2); EOSINOPHILS 0 % (0-7); HEMATOCRIT 33.5 % (36.0-48.0); HEMOGLOBIN 10.7 g/dL (12-16); IMMATURE GRANULOCYTES 3.9 % (0-5); LYMPHOCYTES 2.8 % (15-50); MCH 29.7 pg (26.0-34.0); MCHC 31.9 g/dL (31.0-37.0); MCV 93.1 fL (80.0-100.0); MEAN PLATELET VOLUME 10.6 fL (7.4-10.4); MONOCYTES 7.8 % (2-11); NEUTROPHILS 85.3 % (40-80); PLATELET COUNT 150 10x3/uL (130-400); RDW 15.6 % (11.5-14.5); WBC 9.2 10x3/uL (4.8-10.8)
--- NOTE | 2019-01-10 10:09 | MORECARE ---
CASE MANAGEMENT DISCHARGE SUMMARY PATIENT: NIKKO SKELTON UNIT: [id number] ADM DATE: 01/03/19 AGE: 63 : 51 SEX: F ROOM/BED: D.0168 AUTHOR: ERWIN,DOC PHYSICIAN: REFERRING PHYSICIAN: RIVKA CHAVIRA DO DATE OF SERVICE: 01/10/19 Discharge Plan Patient Name: NIKKO SKELTON Facility: [facility]:[place] : 1955 Planned Disposition: Home Anticipated Discharge Date: 01/09/19 Discharge Date: Expected LOS: 6 Initial Reviewer: [id number] Initial Review Date: 01/04/2019 Generated: 01/10/19 11:09 am Comments DCP- Discharge Planning Updated by [id number]: Parviz Delgado on 01/10/19 9:[address] Patient Name: NIKKO SKELTON Encounter No: [id number] : 1955 Primary Insurance: MEDICARE A & B Anticipated DC Date: 01-09-2019 Planned Disposition: Home DCP follow-up note: CM RECEIVED ORDER FOR INPATIENT REHAB PRESCREENING. CM MET WITH PT IN ROOM, DISCUSSED PROVIDERS AND LOCATIONS. PT REPORTS SHE WANTS TO GO HOME. CM DISCUSSED HAVING SAFE DISCHARGE PLAN WELL THERAPY NOTES. PT REPORTS SUFFERING FROM CHRONIC PAIN AND THE FRONT THAT CAME THROUGH IS CAUSING SOME OF THIS. PT REPORTS SHE WILL THINK ABOUT REHAB AT [place] BUT WANTS TO WAIT UNTIL HER GETS HERE LATER THIS AFTERNOON TO CONSIDER ANY OPTIONS. CM WAITING FOR PT TO SPEAK TO HER ABOUT INPATIENT REHAB AT [place] AND MAKE DECISION REGARDING INPATIENT REHAB VS HOME. CM TO CONTINUE TO FOLLOW AND ASSIST NEEDED. Parviz Delgado, CASE MANAGEMENT DCP- Discharge Planning Updated by [id number]: Parviz Delgado on 01/08/19 3:[address] Patient Name: NIKKO SKELTON Encounter No: [id number] : 1955 Primary Insurance: MEDICARE A & B Anticipated DC Date: 01-09-2019 Planned Disposition: Home DCP follow-up note: CM RECEIVED ORDER FOR TRILOGY, MET WITH PT IN ROOM, PT WANTS TRILOGY FROM [facility] SHE HAS OXYGEN FROM THEM ALREADY. PROVIDER LIST GIVEN, CHOICE SIGNED FOR [facility]. IMPORTANT MESSAGE FROM [employer] PROVIDED AND EXPLAINED. PT DENIES FURTHER DISCHARGE NEEDS OF REHAB OR HOME HEALTH. CM CALLED [facility], , SPOKE TO RAYMOND AND PROVIDED REFERRAL INFORMATION. CM FAXED REFERRAL TO [facility], . [facility] ADVISED THEY WILL PROCESS ORDER FOR TRILOGY MACHINE, CLEANING MACHINE FOR THE TRILOGY IS NOT COVERED BY MEDICARE, [facility] IS $275. CM NOTIFIED PT WHO STATES SHE WILL PRIVATELY PURCHASE THE CLEANING MACHINE FROM [employer]. CM WAITING ON [facility] TO PROCESS AND PROVIDE TRILOGY MACHINE TO PT FOR DISCHARGE HOME. Parviz Delgado, CASE MANAGEMENT DCP- Discharge Planning Updated by [id number]: Shobha Burnham on 01/06/19 5:[address] Patient Name: NIKKO SKELTON Admission Status: ER Accout number: [id number] Admission Date: 01-03-2019 : 1955 Admission Diagnosis:ACUTE AND CHRONIC RESPIRATORY FAILURE WITH HYPOXIA Attending: RIVKA CHAVIRA Current LOS: 3 Anticipated DC Date: Planned Disposition: Home Primary Insurance: MEDICARE A & B Discharge Planning Comments: CM met with patient and significant other (Parker) at bedside after explaining CM role and obtaining verbal consent. Patient lives at home with Parker and plans to return there upon discharge. Patient feels this would be a safe discharge. CM discussed availability / needs of home health and medical equipment. Patient states that it sound like she will be needing BIPAP upon discharge. She states that she has home 02 and portable 02 through [facility]. She states the portable unit she has only goes up to 3 L. Patient states that she wants to use a DME for BiPAP that she can get the cleaning machine with it. CM will contact [employer] to find out if they supply this and ask about portable 02. Patient denies any discharge needs at this time. Patient states she will have Parker drive her home upon discharge. CM will continue to follow and assist as needed with discharge planning / needs. Travel Agency Manager: Shobha Burnham DCPIA - Discharge Planning Initial Assessment Updated by [id number]: Shobha Burnham on 01/06/19 5:59 pm * Is the patient Alert and Oriented? Yes * How many steps to enter\exit or inside your home? * PCP NINA * Pharmacy [facility] * Preadmission Environment Home with Family * ADLs Independent * Other Equipment HOME & PORTABLE 02, NEBULIZER, WALKER, W/C, CANE, ELECTRIC W/C * List name and contact numbers for known caregivers / representatives who currently or will assist patient after discharge: PARKER AVILA - SIGNIFICANT OTHER- [phone] * Verbal permission to speak to the caregivers and representatives has been obtained from the patient. No * Community resources currently utilized None * Additional services required to return to the preadmission environment? No * Can the patient safely return to the preadmission environment? Yes * Has this patient been hospitalized within the prior 30 days at any hospital? No Coverage Notice Reviewer: [email or web address] Chaya Delgado Notice Issued Date-Time: 01/08/2019 14:25 Notice Type: Patient Choice Letter Notice Delivered To: Patient Relationship to Patient: Belt And Link Assembly Supervisor Name: Delivery Method: HAND - Hand Delivered Socorro Days: Prior Verbal Notification: Recipient Understood Notice: Yes Recipient Signature: Yes Med Rec Note Co-signed by Attending: Coverage Notice Comment: CESARIO Reviewer: [id number] Delgado Notice Issued Date-Time: 01/08/2019 14:25 Notice Type: IM Discharge Notice Notice Delivered To: Patient Relationship to Patient: Belt And Link Assembly Supervisor Name: Delivery Method: HAND - Hand Delivered Socorro Days: Prior Verbal Notification: Recipient Understood Notice: Yes Recipient Signature: Yes Med Rec Note Co-signed by Attending: Coverage Notice Comment: Last DP export: 01/08/19 3:23 p Patient Name: NIKKO SKELTON Page [phone] at 1009 All edits/amendments must be made on the electronic document DICTATION DATE: 01/10/19 1008 TRANSMITTER ENGINEER IN CHARGE: SWETA 01/10/19 1008 RPT#: [id number] DC DATE: STATUS: ADM IN [facility] [address] [place] [address] END OF REPORT
[2019-01-10 10:21] VITALS: BP 118/70
[2019-01-10 12:00] VITALS: BP 131/62
--- NOTE | 2019-01-10 12:34 | NUR ---
HAS BEEN OUT IN THE HALLWAY AMBULATING WITH THERAPY.
--- NOTE | 2019-01-10 13:30 | MORECARE ---
CASE MANAGEMENT DISCHARGE SUMMARY PATIENT: NIKKO SKELTON UNIT: [id number] ADM DATE: 01/03/19 AGE: 63 : 51 SEX: F ROOM/BED: D.9860 AUTHOR: ERWIN,DOC PHYSICIAN: REFERRING PHYSICIAN: RIVKA CHAVIRA DO DATE OF SERVICE: 01/10/19 Discharge Plan Patient Name: NIKKO SKELTON Facility: [facility]:[place] : 1955 Planned Disposition: Inpatient Rehab Anticipated Discharge Date: 01/10/19 Discharge Date: Expected LOS: 7 Initial Reviewer: [email or web address] Initial Review Date: 01/04/2019 Generated: 01/10/19 2:29 pm DCP- Discharge Planning Updated by [email or web address]: Parviz Delgado on 01/10/19 9:[address] Patient Name: NIKKO SKELTON Encounter No: [id number] : 1955 Primary Insurance: MEDICARE A & B Anticipated DC Date: 01-09-2019 Planned Disposition: Home DCP follow-up note: CM RECEIVED ORDER FOR INPATIENT REHAB PRESCREENING. CM MET WITH PT IN ROOM, DISCUSSED PROVIDERS AND LOCATIONS. PT REPORTS SHE WANTS TO GO HOME. CM DISCUSSED HAVING SAFE DISCHARGE PLAN WELL THERAPY NOTES. PT REPORTS SUFFERING FROM CHRONIC PAIN AND THE FRONT THAT CAME THROUGH IS CAUSING SOME OF THIS. PT REPORTS SHE WILL THINK ABOUT REHAB AT [place] BUT WANTS TO WAIT UNTIL HER GETS HERE LATER THIS AFTERNOON TO CONSIDER ANY OPTIONS. CM WAITING FOR PT TO SPEAK TO HER ABOUT INPATIENT REHAB AT [place] AND MAKE DECISION REGARDING INPATIENT REHAB VS HOME. CM TO CONTINUE TO FOLLOW AND ASSIST NEEDED. Parviz Delgado, CASE MANAGEMENT DCP- Discharge Planning Updated by [email or web address]: Parviz Delgado on 01/08/19 3:[address] Patient Name: NIKKO SKELTON Encounter No: [id number] : 1955 Primary Insurance: MEDICARE A & B Anticipated DC Date: 01-09-2019 Planned Disposition: Home DCP follow-up note: CM RECEIVED ORDER FOR TRILOGY, MET WITH PT IN ROOM, PT WANTS TRILOGY FROM [facility] SHE HAS OXYGEN FROM THEM ALREADY. PROVIDER LIST GIVEN, CHOICE SIGNED FOR [facility]. IMPORTANT MESSAGE FROM [employer] PROVIDED AND EXPLAINED. PT DENIES FURTHER DISCHARGE NEEDS OF REHAB OR HOME HEALTH. CM CALLED [facility], , SPOKE TO RAYMOND AND PROVIDED REFERRAL INFORMATION. CM FAXED REFERRAL TO [facility], . [employer] ADVISED THEY WILL PROCESS ORDER FOR TRILOGY MACHINE, CLEANING MACHINE FOR THE TRILOGY IS NOT COVERED BY MEDICARE, [facility] IS $275. CM NOTIFIED PT WHO STATES SHE WILL PRIVATELY PURCHASE THE CLEANING MACHINE FROM [employer]. CM WAITING ON [facility] TO PROCESS AND PROVIDE TRILOGY MACHINE TO PT FOR DISCHARGE HOME. Parviz Delgado, CASE MANAGEMENT DCP- Discharge Planning Updated by [id number]: Shobha Burnham on 01/06/19 5:[address] Patient Name: NIKKO SKELTON Admission Status: ER Accout number: [id number] Admission Date: 01-03-2019 : 1955 Admission Diagnosis:ACUTE AND CHRONIC RESPIRATORY FAILURE WITH HYPOXIA Attending: RIVKA CHAVIRA Current LOS: 3 Anticipated DC Date: Planned Disposition: Home Primary Insurance: MEDICARE A & B Discharge Planning Comments: CM met with patient and significant other (Parker) at bedside after explaining CM role and obtaining verbal consent. Patient lives at home with Parker and plans to return there upon discharge. Patient feels this would be a safe discharge. CM discussed availability / needs of home health and medical equipment. Patient states that it sound like she will be needing BIPAP upon discharge. She states that she has home 02 and portable 02 through [facility]. She states the portable unit she has only goes up to 3 L. Patient states that she wants to use a DME for BiPAP that she can get the cleaning machine with it. CM will contact [employer] to find out if they supply this and ask about portable 02. Patient denies any discharge needs at this time. Patient states she will have Parker drive her home upon discharge. CM will continue to follow and assist as needed with discharge planning / needs. Plateman: Shobha Burnham DCPIA - Discharge Planning Initial Assessment Updated by [id number]: Shobha Burnham on 01/06/19 5:59 pm * Is the patient Alert and Oriented? Yes * How many steps to enter\exit or inside your home? * PCP NINA * Pharmacy [facility] * Preadmission Environment Home with Family * ADLs Independent * Other Equipment HOME & PORTABLE 02, NEBULIZER, WALKER, W/C, CANE, ELECTRIC W/C * List name and contact numbers for known caregivers / representatives who currently or will assist patient after discharge: PARKER AVILA - SIGNIFICANT OTHER- [phone] * Verbal permission to speak to the caregivers and representatives has been obtained from the patient. No * Community resources currently utilized None * Additional services required to return to the preadmission environment? No * Can the patient safely return to the preadmission environment? Yes * Has this patient been hospitalized within the prior 30 days at any hospital? No Coverage Notice Reviewer: [id number] Delgado Notice Issued Date-Time: 01/08/2019 14:25 Notice Type: Patient Choice Letter Notice Delivered To: Patient Relationship to Patient: Candy Puller Name: Delivery Method: HAND - Hand Delivered Socorro Days: Prior Verbal Notification: Recipient Understood Notice: Yes Recipient Signature: Yes Med Rec Note Co-signed by Attending: Coverage Notice Comment: CESARIO Reviewer: [email or web address] Delgado Notice Issued Date-Time: 01/08/2019 14:25 Notice Type: IM Discharge Notice Notice Delivered To: Patient Relationship to Patient: Candy Puller Name: Delivery Method: HAND - Hand Delivered Socorro Days: Prior Verbal Notification: Recipient Understood Notice: Yes Recipient Signature: Yes Med Rec Note Co-signed by Attending: Coverage Notice Comment: Last DP export: 01/10/19 9:09 a Patient Name: NIKKO SKELTON Page [id number] at 1330 All edits/amendments must be made on the electronic document DICTATION DATE: 01/10/191328 BELT AND LINK SHOP SUPERVISOR: SWETA 01/10/191328 RPT#: [id number] DC DATE: STATUS: ADM IN [facility] [address] [place] [address] END OF REPORT
--- NOTE | 2019-01-10 13:37 | MORECARE ---
CASE MANAGEMENT DISCHARGE SUMMARY PATIENT: NIKKO SKELTON UNIT: [id number] ADM DATE: 01/03/19 AGE: 63 : 51 SEX: F ROOM/BED: D.0820 AUTHOR: ERWIN,DOC PHYSICIAN: REFERRING PHYSICIAN: RIVKA CHAVIRA DO DATE OF SERVICE: 01/10/19 Discharge Plan Patient Name: NIKKO SKELTON [facility] [facility] 1955 Planned Disposition: Inpatient Rehab Anticipated Discharge Date: 01/10/19 Discharge Date: Expected LOS: 7 Initial Reviewer: [id number] Initial Review Date: 01/04/2019 Generated: 01/10/19 2:37 pm Comments DCP- Discharge Planning Updated by [email or web address]: Parviz Delgado on 01/10/19 12:[address] Patient Name: NIKKO SKELTON Encounter No: [id number] : 1955 Primary Insurance: MEDICARE A & B Anticipated DC Date: 01-10-2019 Planned Disposition: Inpatient Rehab External Planned Provider: [facility] INPATIENT [facility] DCP follow-up note: CM SPOKE TO PT IN ROOM WHO HAS NOW DECIDED SHE WILL GO TO INPATIENT REHAB AT [facility], SHE WOULD STILL LIKE REHAB [facility] [employer] [facility] TO COME AND SPEAK TO SHE AND HER SPOUSE SO HE CAN THINK IT IS "HIS DECISION." CM NOTIFIED MARV OF INPATIENT REHAB. CM NOTIFIED CURLY CULP. [facility] INPATIENT [facility] TO CONTACT MED 2 NURSE WITH ROOM NUMBER WHEN READY TO ACCEPT PT AND NURSE REPORT. Parviz Delgado, JAMIE MANAGEMENT DCP- Discharge Planning Updated by [email or web address]: Parviz Delgado on 01/10/19 9:[address] Patient Name: NIKKO SKELTON Encounter No: [id number] : 1955 Primary Insurance: MEDICARE A & B Anticipated DC Date: 01-09-2019 Planned Disposition: Home DCP follow-up note: CM RECEIVED ORDER FOR INPATIENT REHAB PRESCREENING. CM MET WITH PT IN ROOM, DISCUSSED PROVIDERS AND LOCATIONS. PT REPORTS SHE WANTS TO GO HOME. CM DISCUSSED HAVING SAFE DISCHARGE PLAN WELL THERAPY NOTES. PT REPORTS SUFFERING FROM CHRONIC PAIN AND THE FRONT THAT CAME THROUGH IS CAUSING SOME OF THIS. PT REPORTS SHE WILL THINK ABOUT REHAB AT [facility] [place] BUT WANTS TO WAIT UNTIL HER GETS HERE LATER THIS AFTERNOON TO CONSIDER ANY OPTIONS. CM WAITING FOR PT TO SPEAK TO HER ABOUT INPATIENT REHAB AT [facility] AND MAKE DECISION REGARDING INPATIENT REHAB VS HOME. CM TO CONTINUE TO FOLLOW AND ASSIST NEEDED. Parviz Delgado, CASE MANAGEMENT DCP- Discharge Planning Updated by [email or web address]: Parviz Delgado on 01/08/19 3:[address] Patient Name: NIKKO SKLETON Encounter No: [id number] : 1955 Primary Insurance: MEDICARE A & B Anticipated DC Date: 01-09-2019 Planned Disposition: Home DCP follow-up note: CM RECEIVED ORDER FOR TRILOGY, MET WITH PT IN ROOM, PT WANTS TRILOGY FROM [facility] SHE HAS OXYGEN FROM THEM ALREADY. PROVIDER LIST GIVEN, CHOICE SIGNED FOR [facility]. IMPORTANT MESSAGE FROM MEDICARE PROVIDED AND EXPLAINED. PT DENIES FURTHER DISCHARGE NEEDS OF REHAB OR HOME HEALTH. CM CALLED [facility], , SPOKE TO RAYMOND AND PROVIDED REFERRAL INFORMATION. CM FAXED REFERRAL TO [facility], . RIGOBERTO ADVISED THEY WILL PROCESS ORDER FOR TRILOGY MACHINE, CLEANING MACHINE FOR THE TRILOGY IS NOT COVERED BY MEDICARE, [facility] IS $275. CM NOTIFIED PT WHO STATES SHE WILL PRIVATELY PURCHASE THE CLEANING MACHINE FROM [facility]. CM WAITING ON [facility] TO PROCESS AND PROVIDE TRILOGY MACHINE TO PT FOR DISCHARGE HOME. Parviz Delgado, CASE MANAGEMENT DCP- Discharge Planning Updated by [email or web address]: Shobha Chacha on 01/06/19 5:[address] Patient Name: NIKKO SKELTON Admission Status: ER Accout number: [id number] Admission Date: 01-03-2019 : 1955 Admission Diagnosis:ACUTE AND CHRONIC RESPIRATORY FAILURE WITH HYPOXIA Attending: RIVKA CHAVIRA Current LOS: 3 Anticipated DC Date: Planned Disposition: Home Primary Insurance: MEDICARE A & B Discharge Planning Comments: CM met with patient and significant other (Parker) at bedside after explaining CM role and obtaining verbal consent. Patient lives at home with Parker and plans to return there upon discharge. Patient feels this would be a safe discharge. CM discussed availability / needs of home health and medical equipment. Patient states that it sound like she will be needing BIPAP upon discharge. She states that she has home 02 and portable 02 through [employer]. She states the portable unit she has only goes up to 3 L. Patient states that she wants to use a DME for BiPAP that she can get the cleaning machine with it. CM will contact [facility] to find out if they supply this and ask about portable 02. Patient denies any discharge needs at this time. Patient states she will have Parker drive her home upon discharge. CM will continue to follow and assist as needed with discharge planning / needs. Echocardiographer: Shobha MORENO - Discharge Planning Initial Assessment Updated by [id number]: Shobha Burnham on 01/06/19 5:59 pm * Is the patient Alert and Oriented? Yes * How many steps to enter\\exit or inside your home? * PCP NINA * Pharmacy [facility] * Preadmission Environment Home with Family * ADLs Independent * Other Equipment HOME & PORTABLE 02, NEBULIZER, WALKER, W/C, CANE, ELECTRIC W/C * List name and contact numbers for known caregivers / representatives who currently or will assist patient after discharge: PARKER AVILA - SIGNIFICANT OTHER- [phone] * Verbal permission to speak to the caregivers and representatives has been obtained from the patient. No * Community resources currently utilized None * Additional services required to return to the preadmission environment? No * Can the patient safely return to the preadmission environment? Yes * Has this patient been hospitalized within the prior 30 days at any hospital? No Coverage Notice Reviewer: [id number] Chaya Delgado Notice Issued Date-Time: 01/08/2019 14:25 Notice Type: Patient Choice Letter Notice Delivered To: Patient Relationship to Patient: Tobacco Educator Name: Delivery Method: HAND - Hand Delivered [place] Days: Prior Verbal Notification: Recipient Understood Notice: Yes Recipient Signature: Yes Med Rec Note Co-signed by Attending: Coverage Notice Comment: JUAN R Reviewer: [email or web address] Chaya Delgado Notice Issued Date-Time: 01/08/2019 14:25 Notice Type: IM Discharge Notice Notice Delivered To: Patient Relationship to Patient: Tobacco Educator Name: Delivery Method: HAND - Hand Delivered [place] Days: Prior Verbal Notification: Recipient Understood Notice: Yes Recipient Signature: Yes Med Rec Note Co-signed by Attending: Coverage Notice Comment: Last DP export: 01/10/19 12:29 p Patient Name: NIKKO SKELTON Page [id number] at 1337 All edits/amendments must be made on the electronic document DICTATION DATE: 01/10/191335 FOOD SERVICE LEAD: SWETA 01/10/191335 RPT#: [id number] DC DATE: STATUS: ADM IN [facility] [address] [place] [address] END OF REPORT
[2019-01-10] MEDS ORDERED: CLEOCIN HCL300 MG PO (13:42)
[2019-01-10] MEDS ORDERED: LEVOFLOXACIN500 MG PO (13:43)
--- NOTE | 2019-01-10 14:57 | MORECARE ---
CASE MANAGEMENT DISCHARGE SUMMARY PATIENT: NIKKO SKELTON UNIT: [id number] ADM DATE: 01/03/19 AGE: 63 : 51 SEX: F ROOM/BED: D.2918 AUTHOR: AVE HOOD PHYSICIAN: REFERRING PHYSICIAN: RIVKA CHAVIRA DO DATE OF SERVICE: 01/10/19 Discharge Plan Patient Name: NIKKO SKELTON [facility] [facility] 1955 Planned Disposition: Inpatient Rehab Anticipated Discharge Date: 01/10/19 Discharge Date: Expected LOS: 7 Initial Reviewer: [id number] Initial Review Date: 01/04/2019 Generated: 01/10/19 3:57 pm Comments DCP- Discharge Planning Updated by [id number]: Parviz Delgado on 01/10/19 1:[address] Patient Name: NIKKO SKELTON Encounter No: [id number] : 1955 Primary Insurance: MEDICARE A & B Anticipated DC Date: 01-10-2019 Planned Disposition: Inpatient Rehab External Planned Provider: [facility] DCP follow-up note: CM SPOKE TO PT IN ROOM WHO HAS NOW DECIDED SHE WILL GO TO INPATIENT REHAB AT [facility], SHE WOULD STILL LIKE REHAB [facility] TO COME AND SPEAK TO SHE AND HER SPOUSE SO HE CAN THINK IT IS "HIS DECISION." CM NOTIFIED MARV OF INPATIENT REHAB. CM NOTIFIED [facility]. [facility] IN[facility] TO CONTACT MED 2 NURSE WITH ROOM NUMBER WHEN READY TO ACCEPT PT AND NURSE REPORT. Parviz Delgado, CASE MANAGEMENT Appended by Parviz Delgado on 01/10/2019 14:52 CDT: CM SPOKE TO MARV OF INPATIENT REHAB, SHE HAS MET WITH PT AND SPOUSE, THEY HAVE AGREED TO INPATIENT REHAB AT [facility], REHAB TO ACCEPT TODAY. [facility] IN[facility] TO CONTACT MED 2 NURSE WITH ROOM NUMBER WHEN READY TO ACCEPT PT AND NURSE REPORT. JAMIE Herrera DCP- Discharge Planning Updated by [id number]: Parviz Delgado on 01/10/19 9:[address] Patient Name: NIKKO SKELTON Encounter No: [id number] : 1955 Primary Insurance: MEDICARE A & B Anticipated DC Date: 01-09-2019 Planned Disposition: Home DCP follow-up note: CM RECEIVED ORDER FOR INPATIENT REHAB PRESCREENING. CM MET WITH PT IN ROOM, DISCUSSED PROVIDERS AND LOCATIONS. PT REPORTS SHE WANTS TO GO HOME. CM DISCUSSED HAVING SAFE DISCHARGE PLAN WELL THERAPY NOTES. PT REPORTS SUFFERING FROM CHRONIC PAIN AND THE FRONT THAT CAME THROUGH IS CAUSING SOME OF THIS. PT REPORTS SHE WILL THINK ABOUT REHAB AT [facility] BUT WANTS TO WAIT UNTIL HER GETS HERE LATER THIS AFTERNOON TO CONSIDER ANY OPTIONS. CM WAITING FOR PT TO SPEAK TO HER ABOUT INPATIENT REHAB AT [facility] AND MAKE DECISION REGARDING INPATIENT REHAB VS HOME. CM TO CONTINUE TO FOLLOW AND ASSIST NEEDED. Parviz Delgado, CASE MANAGEMENT DCP- Discharge Planning Updated by [email or web address]: Parviz Delgado on 01/08/19 3:[address] Patient Name: NIKKO SKELTON Encounter No: [id number] : 1955 Primary Insurance: MEDICARE A & B Anticipated DC Date: 01-09-2019 Planned Disposition: Home DCP follow-up note: CM RECEIVED ORDER FOR TRILOGY, MET WITH PT IN ROOM, PT WANTS TRILOGY FROM [facility] SHE HAS OXYGEN FROM THEM ALREADY. PROVIDER LIST GIVEN, CHOICE SIGNED FOR [facility]. IMPORTANT MESSAGE FROM [employer] PROVIDED AND EXPLAINED. PT DENIES FURTHER DISCHARGE NEEDS OF REHAB OR HOME HEALTH. CM CALLED [facility], , SPOKE TO RAYMOND AND PROVIDED REFERRAL INFORMATION. CM FAXED REFERRAL TO [facility], . RIGOBERTO ADVISED THEY WILL PROCESS ORDER FOR TRILOGY MACHINE, CLEANING MACHINE FOR THE TRILOGY IS NOT COVERED BY MEDICARE, [facility] IS $275. CM NOTIFIED PT WHO STATES SHE WILL PRIVATELY PURCHASE THE CLEANING MACHINE FROM [facility]. CM WAITING ON [facility] TO PROCESS AND PROVIDE TRILOGY MACHINE TO PT FOR DISCHARGE HOME. Parviz Delgado, CASE MANAGEMENT DCP- Discharge Planning Updated by [id number]: Shobha Burnham on 01/06/19 5:[address] Patient Name: NIKKO SKELTON Admission Status: ER Accout number: [id number] Admission Date: 01-03-2019 : 1955 Admission Diagnosis:ACUTE AND CHRONIC RESPIRATORY FAILURE WITH HYPOXIA Attending: RIVKA CHAVIRA Current LOS: 3 Anticipated DC Date: Planned Disposition: Home Primary Insurance: MEDICARE A & B Discharge Planning Comments: CM met with patient and significant other (Parker) at bedside after explaining CM role and obtaining verbal consent. Patient lives at home with Parker and plans to return there upon discharge. Patient feels this would be a safe discharge. CM discussed availability / needs of home health and medical equipment. Patient states that it sound like she will be needing BIPAP upon discharge. She states that she has home 02 and portable 02 through [facility]. She states the portable unit she has only goes up to 3 L. Patient states that she wants to use a DME for BiPAP that she can get the cleaning machine with it. CM will contact [employer] to find out if they supply this and ask about portable 02. Patient denies any discharge needs at this time. Patient states she will have Parker drive her home upon discharge. CM will continue to follow and assist as needed with discharge planning / needs. Clergy Member: Shobha Burnham DCPIA - Discharge Planning Initial Assessment Updated by [id number]: Shobha Burnham on 01/06/19 5:59 pm * Is the patient Alert and Oriented? Yes * How many steps to enter\\exit or inside your home? * PCP NINA * Pharmacy [facility] * Preadmission Environment Home with Family * ADLs Independent * Other Equipment HOME & PORTABLE 02, NEBULIZER, WALKER, W/C, CANE, ELECTRIC W/C * List name and contact numbers for known caregivers / representatives who currently or will assist patient after discharge: PARKER AVILA - SIGNIFICANT OTHER- [phone] * Verbal permission to speak to the caregivers and representatives has been obtained from the patient. No * Community resources currently utilized None * Additional services required to return to the preadmission environment? No * Can the patient safely return to the preadmission environment? Yes * Has this patient been hospitalized within the prior 30 days at any hospital? No Coverage Notice Reviewer: [id number] Chaya Delgado Notice Issued Date-Time: 01/08/2019 14:25 Notice Type: Patient Choice Letter Notice Delivered To: Patient Relationship to Patient: Mortuary Beautician Name: Delivery Method: HAND - Hand Delivered Socorro Days: Prior Verbal Notification: Recipient Understood Notice: Yes Recipient Signature: Yes Med Rec Note Co-signed by Attending: Coverage Notice Comment: CESARIO Reviewer: [email or web address] Chaya Delgado Notice Issued Date-Time: 01/08/2019 14:25 Notice Type: IM Discharge Notice Notice Delivered To: Patient Relationship to Patient: Mortuary Beautician Name: Delivery Method: HAND - Hand Delivered [place] Days: Prior Verbal Notification: Recipient Understood Notice: Yes Recipient Signature: Yes Med Rec Note Co-signed by Attending: Coverage Notice Comment: Last DP export: 01/10/19 12:37 p Patient Name: NIKKO SKELTON Page 17746 at 1457 All edits/amendments must be made on the electronic document DICTATION DATE: 01/10/196 MOSHGIACH: SWETA 01/10/19 1456 RPT#: [id number] HI DATE: STATUS: ADM IN [facility] [address] [place] [address] END OF REPORT
--- NOTE | 2019-01-10 15:08 | CN ---
PATIENT NAME:NIKKO SKELTON MEDICAL RECORD: [id number] : [birth year] LOCATION:D.M2 D.2125 ADMIT DATE: 01/03/19 ACCOUNT: [id number] CONSULTING PHYSICIAN: IMNAI MASTERSON MD REFERRING PHYSICIAN: RIVKA CHAVIRA DO DATE OF CONSULTATION: 01/04/2019 CONSULT REQUESTING PHYSICIAN: Rivka Chavira DO REASON FOR CONSULTATION: Ftmos-iz-dedgzaw hypercapnic respiratory failure. HISTORY OF PRESENT ILLNESS: Ms. Skelton is a 63-year-old female who is sick for the last few weeks. She is coughing. She is wheezing. She came into the ER, she was lethargic. ABG was done, the pH were normal, but the CO2 was in 70s. Now, she is more awake and alert. There are no fever and chills, no night sweats. She is coughing with white color sputum production. REVIEW OF SYSTEMS: As in history of present illness. PAST MEDICAL HISTORY: 1. COPD. 2. Chronic hypoxic respiratory failure. 3. History of BOOP. 4. History of interstitial lung disease. 5. History of restrictive lung disease. 6. Rheumatoid arthritis. 7. CREST syndrome. 8. Systemic lupus erythematosus. 9. Anxiety, depression. PAST SURGICAL HISTORY: 1. She has bilateral hip replacement. 2. History of lung biopsy. ALLERGIES: SHE IS ALLERGIC TO CEPHALOSPORINS, SULFA, BUSPAR, LORAZEPAM, PENICILLIN, AND ZOLPIDEM. MEDICATIONS: BuyerCurioustech is reviewed. PERSONAL AND SOCIAL HISTORY: The patient is an ex-smoker. She is a nondrinker. FAMILY HISTORY: Noncontributory. PHYSICAL EXAMINATION: GENERAL: Now, the patient is lying comfortably in bed. She is awake and alert. She is not in acute distress. VITAL SIGNS: The blood pressure is 115/61, pulse is 88, respirations 15, temperature 98.9, SpO2 is 94% on 35% BiPAP machine. HEENT: Conjunctivae are pink. Sclerae are not icteric. NECK: Supple, no JVD. CHEST: There are bilateral crackles. No wheezing. HEART: Rhythm regular, normal sound, no murmur. ABDOMEN: Soft, bowel sounds present. No hepatosplenomegaly. RECTAL: Deferred. EXTREMITIES: No cyanosis, no clubbing, no pedal edema. CONSULT REPORT [id number] NIKKO SKELTON CENTRAL NERVOUS SYSTEM: The patient is awake and alert. There are no obvious cranial nerve abnormality. The gait was not tested. LABORATORY DATA: CBC: WBC 5.4, hemoglobin 11, hematocrit 35.3, the platelet count 160. Chemistry; sodium 137, potassium 4.7, BUN is 33, creatinine 1.1, the bicarbonate is 40. ABG: The pH is 7.35, pCO2 is 70.4, the pO2 is 65, the bicarb is 39.3. IMAGING: Chest radiograph, there is minimal improvement in bilateral interstitial lung markings. IMPRESSION: 1. Giqma-qy-knbiozx hypercapnic respiratory failure. 2. Chronic hypoxic respiratory failure. 3. Chronic obstructive pulmonary disease exacerbation. 4. Pulmonary fibrosis. 5. Rheumatoid arthritis. 6. History of systemic lupus erythematosus. 7. 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 8. Congestive heart failure with chronic diastolic dysfunction. RECOMMENDATION: 1. Continue albuterol/ipratropium nebulizer. 2. Brovana/budesonide nebulizer. 3. Adjust the dose of corticosteroid. 4. Lasix p.r.n. 5. Start on Diamox 250 mg IV t.i.d. 6. Supplemental oxygen and BiPAP machine at night. The patient will need BiPAP machine as outpatient as in the past the patient was not tolerating the BiPAP and that was being returned. Dr. Chavira, thank you for involving me in the care of Ms. Skelton. TRANSINT:[id number] Voice Confirmation ID: [id number] DOCUMENT ID: [id number] IMANI MASTERSON MD at 1508 CC: [id number] DICTATION DATE: 01/04/19 1354 ELECTRICAL ENGINEERING DIRECTOR: 01/04/19 1427 ADM IN [facility] [address] [facility] [place] [address]
[2019-01-10] MEDS ORDERED: XANAX0.25 MG PO (15:10)
[2019-01-10] MEDS ORDERED: BROVANA15 MCG/2 M INH (15:10)
[2019-01-10] MEDS ORDERED: PULMICORT0.25 MG/1 INH (15:11)
--- NOTE | 2019-01-10 16:00 | NUR ---
Rehab Prescreening Consult recieved and the patient was visited. She meets ARU criteria and agrees to participate in the required therapy. She will be accepted today. Discussed with the CM [place]. Alicia Nails RN Clinical Liaison, Rehab
--- NOTE | 2019-01-10 16:09 | NUR ---
FREDY WITH CASE MANGEMENT TO GIVE ME A ROOM NUMBER FOR REHAB. PATIENT IS BACK ON TRILOGY AT THIS TIME AND WANTS TO REST.
--- NOTE | 2019-01-10 16:17 | NUR ---
REPORT CALLED TO JENNIFER IN REHAB.
[2019-01-10 16:45] VITALS: BP 143/75
--- NOTE | 2019-01-10 18:03 | NUR ---
SALINE LOCK REMOVED WITH CATH TIP INTACT. VERBAL AND WRITTEN DISCHARGE INSTRUCTIONS GIVEN TO PATIENT.
--- NOTE | 2019-01-10 18:25 | NUR ---
DISCHARGED TO REHAB VIA WHEELCHAIR AND PORTABLE OXYGEN.
== END 2019-01-10 18:26 | DRG 193 ==
LOC: D.ER 21:57 → D.CVICU 23:43 → D.M2 01-06 21:23
PROVIDERS: Family Medicine; Internal Medicine Interventional Cardiology; Internal Medicine Nephrology; Internal Medicine Pulmonary Disease; ADMIT Family Medicine; ATTEND Family Medicine
PROC: 5A09357 Assistance with Respiratory Ventilation, Less than 24 Consecutive Hours, Continuous Positive Airway Pressure (ICD-10-PCS; 2019-01-04)
PROC: B2151ZZ Fluoroscopy of Left Heart using Low Osmolar Contrast (ICD-10-PCS; 2019-01-06)
PROC: 4A023N7 Measurement of Cardiac Sampling and Pressure, Left Heart, Percutaneous Approach (ICD-10-PCS; 2019-01-06)
PROC: B2111ZZ Fluoroscopy of Multiple Coronary Arteries using Low Osmolar Contrast (ICD-10-PCS; principal; 2019-01-06 09:00)
DX: J18.1 Lobar pneumonia, unspecified organism (principal); J96.22 Acute and chronic respiratory failure with hypercapnia; J96.21 Acute and chronic respiratory failure with hypoxia; I50.32 Chronic diastolic (congestive) heart failure; J44.1 Chronic obstructive pulmonary disease with (acute) exacerbation; J44.0 Chronic obstructive pulmonary disease with (acute) lower respiratory infection; M06.9 Rheumatoid arthritis, unspecified; J84.10 Pulmonary fibrosis, unspecified; I11.0 Hypertensive heart disease with heart failure; F41.8 Other specified anxiety disorders; R53.81 Other malaise; D69.6 Thrombocytopenia, unspecified; D64.9 Anemia, unspecified; K58.9 Irritable bowel syndrome, unspecified; M79.7 Fibromyalgia; J30.9 Allergic rhinitis, unspecified

== ENCOUNTER 2019-01-10 19:00 | Inpatient (IN) | payer MEDICARE, BC ==
[~2019-01-10] VITALS: Ht 165.1 cm; Wt 93.0 kg
[~2019-01-10 19:00] MED LIST changes: +BROVANA15 MCG/2 M INH; +CLEOCIN HCL300 MG PO; +LEVOFLOXACIN500 MG PO; +MORPHINE SULFAT15 M4 PO; +PULMICORT0.25 MG/1 INH; +XANAX0.25 MG PO
[2019-01-10 19:55] VITALS: BMI 34.1
[2019-01-10 20:00] VITALS: BP 153/86
[2019-01-11 06:03] LABS: BASOPHILS 0.1 % (0-2); EOSINOPHILS 0.4 % (0-7); HEMATOCRIT 34.6 % (36.0-48.0); HEMOGLOBIN 10.9 g/dL (12-16); LYMPHOCYTES 7.1 % (15-50); MCH 29.3 pg (26.0-34.0); MCHC 31.5 g/dL (31.0-37.0); MEAN PLATELET VOLUME 11.1 fL (7.4-10.4); MONOCYTES 11.6 % (2-11); NEUTROPHILS 75.8 % (40-80); PLATELET COUNT 171 10x3/uL (130-400); RBC 3.72 10x6/uL (4.00-5.40); RDW 15.7 % (11.5-14.5); WBC 8.2 10x3/uL (4.8-10.8)
[2019-01-11 06:08] LABS: ANION GAP 7.5 mmol/L (8-16); CALCIUM 8.5 mg/dL (8.5-10.1); CARBON DIOXIDE 31.8 mmol/L (21.0-32.0); POTASSIUM - SERUM 4.3 mmol/L (3.5-5.1)
[2019-01-11 07:29] VITALS: BP 104/57
[2019-01-11 11:36] VITALS: Ht 165.1 cm; Wt 93.0 kg
[2019-01-11 19:04] VITALS: BP 114/60
[2019-01-12 08:39] VITALS: BP 127/64
[2019-01-12 18:54] VITALS: BP 106/58
[2019-01-13 06:37] LABS: BASOPHILS 0.2 % (0-2); EOSINOPHILS 4.4 % (0-7); HEMATOCRIT 35.9 % (36.0-48.0); HEMOGLOBIN 11.3 g/dL (12-16); LYMPHOCYTES 11.9 % (15-50); MCH 29.4 pg (26.0-34.0); MCHC 31.5 g/dL (31.0-37.0); MCV 93.5 fL (80.0-100.0); MEAN PLATELET VOLUME 10.2 fL (7.4-10.4); MONOCYTES 17.5 % (2-11); PLATELET COUNT 161 10x3/uL (130-400); RBC 3.84 10x6/uL (4.00-5.40); RDW 16.4 % (11.5-14.5); WBC 6.4 10x3/uL (4.8-10.8)
[2019-01-13 06:50] LABS: ANION GAP 5.6 mmol/L (8-16); CALCIUM 8.1 mg/dL (8.5-10.1); CARBON DIOXIDE 35.6 mmol/L (21.0-32.0); CREATININE - SERUM 0.9 mg/dL (0.6-1.3); POTASSIUM - SERUM 4.2 mmol/L (3.5-5.1)
[2019-01-13 08:01] VITALS: BP 111/54
[2019-01-13 19:00] VITALS: BP 117/60
[2019-01-14 07:34] VITALS: BP 116/62
[2019-01-14 19:00] VITALS: BP 125/59
[2019-01-15 08:15] LABS: ANION GAP 5.3 mmol/L (8-16); CALCIUM 8.2 mg/dL (8.5-10.1); CARBON DIOXIDE 38.2 mmol/L (21.0-32.0); CREATININE - SERUM 0.9 mg/dL (0.6-1.3); POTASSIUM - SERUM 4.5 mmol/L (3.5-5.1)
[2019-01-15 08:16] LABS: BASOPHILS 0.2 % (0-2); EOSINOPHILS 4.5 % (0-7); HEMATOCRIT 35.5 % (36.0-48.0); HEMOGLOBIN 11.2 g/dL (12-16); IMMATURE GRANULOCYTES 2.6 % (0-5); LYMPHOCYTES 16.4 % (15-50); MCH 29.4 pg (26.0-34.0); MCHC 31.5 g/dL (31.0-37.0); MCV 93.2 fL (80.0-100.0); MONOCYTES 14.1 % (2-11); NEUTROPHILS 62.2 % (40-80); PLATELET COUNT 171 10x3/uL (130-400); RBC 3.81 10x6/uL (4.00-5.40); RDW 16.5 % (11.5-14.5); WBC 5.3 10x3/uL (4.8-10.8)
[2019-01-15 08:36] VITALS: BP 108/56
[2019-01-15 19:00] VITALS: BP 124/58
[2019-01-16 07:18] LABS: BASOPHILS 0.2 % (0-2); EOSINOPHILS 4.4 % (0-7); HEMATOCRIT 35.3 % (36.0-48.0); HEMOGLOBIN 10.9 g/dL (12-16); LYMPHOCYTES 17.1 % (15-50); MCH 28.9 pg (26.0-34.0); MCHC 30.9 g/dL (31.0-37.0); MCV 93.6 fL (80.0-100.0); MEAN PLATELET VOLUME 10.2 fL (7.4-10.4); MONOCYTES 16.5 % (2-11); NEUTROPHILS 60.8 % (40-80); PLATELET COUNT 170 10x3/uL (130-400); RBC 3.77 10x6/uL (4.00-5.40); RDW 16.5 % (11.5-14.5); WBC 4.8 10x3/uL (4.8-10.8)
[2019-01-16 07:27] LABS: CALC OSMOLALITY 284 mosm/kg (275-300); CALCIUM 8.3 mg/dL (8.5-10.1); CARBON DIOXIDE 38.7 mmol/L (21.0-32.0); CHLORIDE - SERUM 105 mmol/L (98-107); CREATININE - SERUM 0.8 mg/dL (0.6-1.3); GLUCOSE 76 mg/dL (74-106); POTASSIUM - SERUM 4.2 mmol/L (3.5-5.1); SODIUM 142 mmol/L (136-145); UREA NITROGEN 21 mg/dL (7-18); eGFR NON AFRICAN AMERICAN 76 mL/min (90-120)
[2019-01-16 08:00] VITALS: BP 107/59
[2019-01-16] MEDS ORDERED: LASIX20 MG PO (08:58)
--- NOTE | 2019-01-16 08:58 | RHP ---
PATIENT: NIKKO SKELTON MEDICAL RECORD: [id number] ACCOUNT: [id number] LOCATION:[facility]1116 : 51 ADMISSION DATE: 01/10/19 REHABILITATION HISTORY AND PHYSICAL EXAMINATION POST ADMISSION PHYSICIAN EXAMINATION DATE OF ADMISSION: 01/10/2019 ADMITTING DIAGNOSIS: Disuse myopathy. HISTORY OF PRESENT ILLNESS: The patient is a 63-year-old female patient admitted with disuse myopathy secondary to bilateral pneumonia, left upper lobe and right upper lobe, fospj-qh-cwajgau hypoxic and hypercapnic respiratory failure, COPD and pulmonary fibrosis. She is brought to the ER on 01/03/2019 with history of being sick for few weeks. She was coughing and wheezing. On arrival to her the Emergency Room, she was lethargic. She had a CO2 on her ABGs of greater than 70. She is now more alert and awake and doing better at this time. She was coughing up some sputum at that time. She had an echo in December, which showed an EF of 55% to 60% with normal valves. Her BNP was slightly elevated at 366. She was requiring BiPAP. She was admitted to ICU for further evaluation and treatment. Pulmonary was consulted. Impression was bdzlz-sn-mlcqwqp hypoxic respiratory failure, chronic hypoxic respiratory failure, and COPD exacerbation. They recommended continuing on updrafts, Brovana-budesonide, and also adjusting her dose of corticosteroids and was started on Diamox and supplemental O2 and BiPAP at night. On 01/06/2019, a left heart catheterization showed normal left ventricular function, normal coronary arteries and anatomy. On 01/07/2019, she was moved out of ICU to telemetry. Her breathing continued to improve. She is working on getting a Trilogy at home and pulmonary support. Previously, she was monitoring independent for ADLs and mobility wearing 3 liters of O2 continuously and using a walker. Currently, she is on telemetry, O2 at 3 liters and uses BiPAP at night. She has had a prolonged immobility, generalized weakness, especially in her lower extremities. She has a low tolerance for PT at this time. She has decreased proximal muscle weakness strength in her lower extremities and moderate to max assist for bed to chair, sit to stand and ambulation. These are all barriers to her discharge home. COMORBIDITIES: Include morbid obesity, COPD, juliq-vz-qxygdwb respiratory failure, pneumonia, pulmonary fibrosis, rheumatoid arthritis, COPD, irritable bowel syndrome, anemia, pulmonary fibrosis, deconditioning, debility, proximal weakness and self-care deficit. PAST MEDICAL HISTORY: Significant for CREST syndrome, pulmonary fibrosis, neuropathy, rheumatoid arthritis, chronic pain, gastroesophageal reflux disease, tobacco use, pneumonia, COPD, osteoporosis, depression, anxiety, menopause. PAST SURGICAL HISTORY: Includes amputation of the phalanx of her finger, both hips have been replaced, lumpectomy, thorascopic surgery, lobectomy, right shoulder replacement, she has got a and also colonoscopy. ALLERGIES: PENICILLIN, ATIVAN, SULFA, AMBIEN AND CEPHALOSPORINS. CURRENT MEDICATIONS: Include Lyrica 300 mg daily, prednisone 5 mg daily, Protonix 40 mg daily, multivitamin daily, morphine 15 mg daily, lisinopril 10 mg daily, Levaquin 500 mg daily, Floranex 460 daily, Plaquenil 200 mg daily, Colace HISTORY AND PHYSICAL [id number] SKELTON,EL BROWN 100 mg daily, Os-Gasper with D 500 mg daily, aspirin chewable 81 mg daily, Singulair 10 mg at bedtime, DuoNeb updrafts, Pepcid 40 mg b.i.d., she is on clindamycin 600 mg b.i.d., budesonide 0.25 mg b.i.d., Brovana 15 mcg b.i.d., Xanax 0.25 mg t.i.d. p.r.n., Ventolin updrafts as needed and MiraLax 17 grams in 8 ounces of water daily. HABITS: Does have a history of tobacco use, but not at this time FAMILY HISTORY: Noncontributory. SOCIAL HISTORY: The patient hopes to return back home and get back to her prior level of functioning. REVIEW OF SYSTEMS: GENERAL: Does complain of weakness and fatigue. HEENT: Does complain of cold, cough, and congestion. CARDIOVASCULAR: Denies any chest pain at this time. LUNGS: Does complain of shortness of breath especially with activity. PHYSICAL EXAMINATION: VITAL SIGNS: Stable. She is afebrile. GENERAL: A somewhat obese female, in no distress, alert upon exam. HEENT: Normocephalic and atraumatic. Mucosa moist. NECK: Supple. No lymphadenopathy. LUNGS: Clear. In mid field, she does have some decreased breath sounds in both bases and also in the upper lobes. HEART: Regular rate and rhythm. No murmurs, rubs or gallops. ABDOMEN: Benign. EXTREMITIES: No clubbing, cyanosis or edema. NEUROLOGIC: She does have noted proximal muscle weakness. LABORATORY DATA: White count is 8.2, H&H of 11 and 34 and platelet count was noted to be 171. Her sodium is 142, potassium 4.3, BUN and creatinine of 41 and 1.0 and blood sugar is noted to be 120. ASSESSMENT: This is a 63-year-old female patient admitted to rehab with a working diagnosis of disuse myopathy complicated by lengthy stay in the ICU secondary to bilateral pneumonia and dwxot-bd-jsgmjyb respiratory failure. The patient has potential to make improvement. We instituted the following multidisciplinary therapies include, but not limited to physical, occupational, respiratory, speech, nutritional services, prosthetics and orthotics. Given her complex medical condition and risk for more complications, rehabilitation services cannot be provided at a low level of care such as skilled nurse facility. PLAN: 1. Admit to [facility] for intensive inpatient therapy to include the following disciplines: A. Physical therapy to improve gait, all transfer skills and bed mobility to a modified independent level. B. Occupational therapy to a modified independent level. C. Case management to assist with discharge planning or placement options. D. Nutrition to assist with nutritional needs. E. Rehabilitation nursing to assist in monitoring the patient's underlying medical condition and to assist with any type of bowel or bladder management. HISTORY AND PHYSICAL [id number] NIKKO SKELTON 2. The patient's current medication and medical care will be continued. 3. The patient will be placed on standard fall precautions. 4. The patient's estimated length of stay is approximately 7-10 days. 5. We will discuss the patient during care team staff meeting this week. We will watch her mobility, I will add a prophylactic blood thinner if necessary and I am going to followup in the a.m. TRANSINT:[id number] Voice Confirmation ID: [id number] DOCUMENT ID: [id number] ROBBIE notes whether there has been none or any medical/functional change since admission: - No change since preadmission screen. ROBBIE attests patient continues to be appropriate for IRF: - Continues to be appropriate. RENEA BANERJEE MD at 0858 CC: [id number] DICTATION DATE: 01/11/19 1001 INSURANCE ADVISER: 01/11/19 1312 ADM IN [facility] [address] [id number]
[2019-01-16 19:48] VITALS: BP 110/68
[2019-01-17 08:14] VITALS: BP 108/61
== END 2019-01-17 13:01 | disposition home health service (06) | DRG 91 ==
LOC: D.REHAB 19:00
PROVIDERS: ADMIT Emergency Medicine; ATTEND Emergency Medicine
DX: G72.89 Other specified myopathies (principal); J96.21 Acute and chronic respiratory failure with hypoxia; J96.22 Acute and chronic respiratory failure with hypercapnia; J18.9 Pneumonia, unspecified organism; J44.1 Chronic obstructive pulmonary disease with (acute) exacerbation; N17.9 Acute kidney failure, unspecified; E66.01 Morbid (severe) obesity due to excess calories; M06.9 Rheumatoid arthritis, unspecified; J84.10 Pulmonary fibrosis, unspecified; J44.9 Chronic obstructive pulmonary disease, unspecified; K21.9 Gastro-esophageal reflux disease without esophagitis; K58.9 Irritable bowel syndrome, unspecified; D64.9 Anemia, unspecified; R53.81 Other malaise; R53.1 Weakness

== ENCOUNTER 2019-01-20 07:55 | Inpatient (IN) | payer MEDICARE, BC ==
[~2019-01-20] VITALS: Ht 165.1 cm; Wt 94.2 kg
[~2019-01-20 07:55] MED LIST changes: +LASIX20 MG PO
[2019-01-20 08:49] LABS: BASOPHILS 0.2 % (0-2); EOSINOPHILS 0 % (0-7); HEMATOCRIT 34.4 % (36.0-48.0); HEMOGLOBIN 10.8 g/dL (12-16); IMMATURE GRANULOCYTES 0.4 % (0-5); LYMPHOCYTES 7.3 % (15-50); MCH 29.3 pg (26.0-34.0); MCHC 31.4 g/dL (31.0-37.0); MCV 93.5 fL (80.0-100.0); MEAN PLATELET VOLUME 9.4 fL (7.4-10.4); MONOCYTES 12.8 % (2-11); NEUTROPHILS 79.3 % (40-80); RBC 3.68 10x6/uL (4.00-5.40); RDW 15.8 % (11.5-14.5); WBC 5.4 10x3/uL (4.8-10.8)
[2019-01-20 09:00] LABS: PLATELET COUNT 126 10x3/uL (130-400)
[2019-01-20 09:04] LABS: ALBUMIN 3.3 g/dL (3.4-5.0); ANION GAP 7.5 mmol/L (8-16); BILIRUBIN - TOTAL 0.27 mg/dL (0.2-1.3); CALCIUM 9.3 mg/dL (8.5-10.1); CARBON DIOXIDE 37.5 mmol/L (21.0-32.0); CREATININE - SERUM 1.1 mg/dL (0.6-1.3); PROTEIN - SERUM 5.6 g/dL (6.4-8.2)
[2019-01-20 09:27] LABS: APTT 23.5 SECONDS (22.8-39.4); INR 1.04 (0.85-1.17); PROTIME 13.1 SECONDS (11.6-15.0)
[2019-01-20 10:04] VITALS: BP 138/68; BMI 34.1
[2019-01-20] MEDS ORDERED: PHENERGAN25 M1 PO (10:10)
[2019-01-20] MEDS ORDERED: FLUTICASONE PRO16 GM NASAL (10:10)
--- NOTE | 2019-01-20 10:15 | NUR ---
RECEIVED TO ROOM 2133 VIA W/C FROM ER. ASSISTED TO BED AND MADE COMFORTABLE. ADMISSION COMPLETED AND NO REQUESTS FROM PT. REMAINS NPO FOR BRONCHOSCOPY THIS AFTERNOON.
--- NOTE | 2019-01-20 10:31 | NUR ---
TO XRAY VIA W/C FOR CT SCAN
--- NOTE | 2019-01-20 11:21 | NUR ---
TO SPECIALS VIA BED FOR BRONCHOSCOPY.
--- NOTE | 2019-01-20 14:28 | MORECARE ---
CASE MANAGEMENT DISCHARGE SUMMARY PATIENT: NIKKO SKELTON UNIT: [id number] ADM DATE: 01/20/19 AGE: 63 : 53 SEX: F ROOM/BED: D.2133 AUTHOR: AVE HOOD PHYSICIAN: REFERRING PHYSICIAN: SUSAN JOHNSON MD DATE OF SERVICE: 01/20/19 Discharge Plan Patient Name: NIKKO SKELTON [facility] [facility] 1955 Planned Disposition: Anticipated Discharge Date: Discharge Date: Expected LOS: Initial Reviewer: [email or web address] Initial Review Date: 01/20/2019 Generated: 01/20/19 3:28 pm Patient Name: NIKKO SKELTON Page [phone] at 1428 All edits/amendments must be made on the electronic document DICTATION DATE: 01/20/191426 NUCLEAR PHYSICIST: SWETA 01/20/191426 RPT#: [id number] DC DATE: STATUS: ADM IN [facility] [address] [place] [address] END OF REPORT
[2019-01-20 16:01] LABS: MACROPHAGES BF 47 %; MESOTHELIALS BF 3 %; NEUT - BF 28 %
[2019-01-20 16:05] LABS: MACROPHAGES BF 57 %; MESOTHELIALS BF 3 %; NEUT - BF 24 %
[2019-01-20 16:20] VITALS: BP 101/52
[2019-01-20 16:48] LABS: % SATURATION 29 % (15-55); IRON 98 ug/dl (35-150); TOTAL IRON BIND CAPACITY 337 ug/dl (260-445); UNSAT IRON BIND CAPACITY 239 ug/dl (150-375)
--- NOTE | 2019-01-20 19:45 | NUR ---
ASKING FOR BREATHING TREATMENT AND XANAX, CALL RT AND GAVE XANAX ORDER
[2019-01-20 20:00] VITALS: BP 121/72
[2019-01-21] VITALS (7 sets, daily range): BP systolic 111–164; BP diastolic 55–117; Ht 165.1 cm; Wt 94.2 kg
--- NOTE | 2019-01-21 01:44 | NUR ---
COLLECTED UA, TOOK TO LAB
[2019-01-21 02:17] LABS: APPEARANCE CLEAR (CLEAR); BILIRUBIN NEGATIVE (NEGATIVE); COLOR YELLOW (YELLOW); GLUCOSE NEGATIVE (NEGATIVE); KETONE NEGATIVE (NEGATIVE); NITRITE NEGATIVE (NEGATIVE); PROTEIN NEGATIVE (NEGATIVE); UROBILINOGEN NORMAL (NORMAL)
--- NOTE | 2019-01-21 03:49 | NUR ---
I have reviewed this patient and I concur with the Shift Assessment completed by the Licensed Practical Nurse today this shift.
[2019-01-21 05:38] LABS: BASOPHILS 0 % (0-2); EOSINOPHILS 0 % (0-7); HEMATOCRIT 31.9 % (36.0-48.0); HEMOGLOBIN 9.9 g/dL (12-16); IMMATURE GRANULOCYTES 0.6 % (0-5); LYMPHOCYTES 4.9 % (15-50); MCH 29.2 pg (26.0-34.0); MCV 94.1 fL (80.0-100.0); MEAN PLATELET VOLUME 9.8 fL (7.4-10.4); MONOCYTES 3.9 % (2-11); NEUTROPHILS 90.6 % (40-80); PLATELET COUNT 126 10x3/uL (130-400); RBC 3.39 10x6/uL (4.00-5.40); RDW 16.1 % (11.5-14.5); WBC 5.3 10x3/uL (4.8-10.8)
[2019-01-21 06:08] LABS: ANION GAP 5.8 mmol/L (8-16); CALCIUM 8.7 mg/dL (8.5-10.1)
[2019-01-21 06:12] LABS: POTASSIUM - SERUM 4.8 mmol/L (3.5-5.1)
--- NOTE | 2019-01-21 07:27 | NUR ---
AM ROUNDS- PT IN BED, A/O X4, RESP EVEN AND NONLABORED ON 3L. LT HAND IV SL. PT WEARS FULL DENTURE SET, AND READING GLASSES. PT DENIES ANY NEEDS AT THIS TIME. CALL LIGHT IN REACH, BEDSIDE RAILS X2, NAD NOTED, WILL CONTINUE PLAN OF CARE.
--- NOTE | 2019-01-21 09:37 | NUR ---
AM MEDS GIVEN AT THIS TIME. LT HAND IV COMPLETLY OUT, TIP INTACT. WAS NOT ABLE TO GIVE SOLU-MEDROL AT THIS TIME. PT DENIES ANY NEEDS AT THIS TIME. CALL LIGHT IN REACH, NAD NOTED, WILL CONTINUE TO MONITOR.
--- NOTE | 2019-01-21 10:42 | NUR ---
SOLU-MEDROL GIVEN AT THIS TIME TO RT FA IV THAT WAS STARTED BY PATENT LEATHER SORTER DIAGNOSTIC TECHNOLOGIST. ALSO GAVE XANAX FOR PER PT REQUEST. PT DENIES ANY OTHER NEEDS AT THIS TIME. CALL LIGHT IN REACH, NAD NOTED, WILL CONTINUE TO MONITOR.
--- NOTE | 2019-01-21 12:44 | NUR ---
PT C/O NECK BEING SWOLLEN FROM BRONCH YESTERDAY. STATING THAT IT HARD FOR HER TO SWALLOW AND BREATH. WANTS TO KNOW IF SHE CAN HAVE SOMETHING TO HELP WITH THE SWELLING.
--- NOTE | 2019-01-21 14:05 | NUR ---
HAD STEPHEN WITH RESPIRATORY LISTEN TO PT TOO, TO MAKE SURE HE DID NOT HEAR ANYTHING ABNORMAL.
[2019-01-21 15:11] LABS: ACID FAST SMEAR Negative (()); AFB SPECIMEN PROCESSING Concentration (()); AFB SPECIMEN PROCESSING Tissue Grinding (())
--- NOTE | 2019-01-21 18:18 | NUR ---
GAVE 50MG OF ULTRAM FOR PAIN LEVEL OF 8/10. PT UP TO SIDE OF BED, USING HER TRIOLOGY, AND VISITORS AT BEDSIDE, PT DENIES ANY OTHER NEEDS AT THIS TIME. CALL LIGHT IN REACH, NAD NOTED.
--- NOTE | 2019-01-21 19:35 | NUR ---
ASSESSMENT COMPLETE, PT A&O. O2 AT 3.5 LITERS VIA NC. IV TO RIGHT FOREARM SL, SITE CLEAN AND DRY. PLACED ON TELEMETRY. 86 SR. FAMILY AT BED SIDE, BED LOW, CL IN REACH.
--- NOTE | 2019-01-21 20:38 | NUR ---
HS MEDS GIVEN WITH FRESH ICE WATER. PT STATES THAT THE ULTRAM THAT WAS GIVEN EARLIER IN THE DAY HELPED WITH HER HEADACHE AND THAT HER HEAD NO LONGER HURTS. XANAX 1 TAB GIVEN AT PT REQUEST TO ASSIST WITH CALMING NERVES.
[2019-01-22 00:30] VITALS: BP 133/66
--- NOTE | 2019-01-22 01:23 | NUR ---
RESTING WITH EYES CLOSED, HOME TRILOGY IN USE.
--- NOTE | 2019-01-22 04:11 | NUR ---
I have reviewed this patient and I concur with the Shift Assessment completed by the Licensed Practical Nurse today this shift.
[2019-01-22 05:00] VITALS: BP 157/80
[2019-01-22 05:16] LABS: HEMATOCRIT 34.5 % (36.0-48.0); HEMOGLOBIN 10.9 g/dL (12-16); MCH 29.7 pg (26.0-34.0); MCHC 31.6 g/dL (31.0-37.0); MEAN PLATELET VOLUME 10.2 fL (7.4-10.4); RBC 3.67 10x6/uL (4.00-5.40); RDW 16.2 % (11.5-14.5)
[2019-01-22 05:18] LABS: ANION GAP 7.4 mmol/L (8-16); CALCIUM 8.9 mg/dL (8.5-10.1); CARBON DIOXIDE 35.8 mmol/L (21.0-32.0); CREATININE - SERUM 0.9 mg/dL (0.6-1.3); POTASSIUM - SERUM 4.2 mmol/L (3.5-5.1)
[2019-01-22 05:19] LABS: PLATELET COUNT 160 10x3/uL (130-400); WBC 9.1 10x3/uL (4.8-10.8)
[2019-01-22 05:36] LABS: LYMPHOCYTES 5 % (15-50); MONOCYTES 1 % (2-11); NEUTROPHILS 92 % (40-80); PLATELET ESTIMATE NORMAL
--- NOTE | 2019-01-22 07:19 | NUR ---
PT UP TO SIDE OF BED AT THIS TIME. A/O X4, RECEIVING AN UPDRAFT AT THIS TIME. CALL LIGHT IN REACH, NAD NOTED, WILL CONTINUE PLAN OF CARE.
--- NOTE | 2019-01-22 08:31 | NUR ---
RECEIVED CALL FROM DR. SIVLA AND INFORMED ME THAT HE WANTS PT TO BE ON A NONREBREATHER MASK. CALLED RESPIRATORY AND INFORMED THEM.
--- NOTE | 2019-01-22 08:35 | NUR ---
WHEEZING NOTED ON EXPIRATION, CRACKLING SENSATION NOTED FROM CHEST TO SHOULDERS AND NECK. PT ON NONREBREATHER AT 100%. PT A LITTLE ANXIOUS ABOUT EVERYTHING THAT IS GOING ON. WILL SEE IF SHE CAN HAVE XANAX. CALL LIGHT IN REACH, WILL CONTINUE TO MONITOR.
[2019-01-22 08:39] VITALS: BP 124/92
--- NOTE | 2019-01-22 09:30 | NUR ---
AM MEDS GIVEN AT THIS TIME. ALSO GAVE XANAX PER PT REQUEST. PT WEARING NONREBREATHER MASK AT THIS TIME.
--- NOTE | 2019-01-22 09:57 | NUR ---
PT TO CT AT THIS TIME.
--- NOTE | 2019-01-22 10:35 | NUR ---
PT BACK TO ROOM 2133, PLACED BACK ON NONREBREATHER MASK. PT DENIES ANY NEEDS AT THIS TIME. CALL LIGHT IN REACH, NAD NOTED, WILL CONTINUE TO MONITOR.
[2019-01-22 11:13] LABS: FOLATE (FOLIC ACID) - SERUM >20.0 ng/mL (>3.0)
--- NOTE | 2019-01-22 11:47 | NUR ---
GAVE ULTRAM FOR PAIN LEVEL OF 9/10 TO HEAD, PT RESTING COMFORTABLY ON THE SIDE OF THE BED, DENIES ANY OTHER NEEDS AT THIS TIME. CALL LIGHT IN REACH.
[2019-01-22 11:51] VITALS: BP 149/90
[2019-01-22 14:11] LABS: FUNGUS STAIN Final report (())
[2019-01-22 15:50] VITALS: BP 117/65
--- NOTE | 2019-01-22 16:21 | MORECARE ---
CASE MANAGEMENT DISCHARGE SUMMARY PATIENT: NIKKO SKELTON UNIT: [id number] ADM DATE: 01/22/19 AGE: 63 : 53 SEX: F ROOM/BED: D.2133 AUTHOR: AVE HOOD PHYSICIAN: REFERRING PHYSICIAN: SUSAN JOHNSON MD DATE OF SERVICE: 01/22/19 Discharge Plan Patient Name[facility] NIKKO SKELTON [facility] [facility] 1955 Planned Disposition: Home with Home Health Anticipated Discharge Date: Discharge Date: Expected LOS: Initial Reviewer: [email or web address] Initial Review Date: 01/20/2019 Generated: 01/22/19 5:21 pm Coverage Notice Reviewer: [email or web address] - Nettie Copeland Notice Issued Date-Time: 01/21/2019 17:03 Notice Type: Medicare Outpatient Observation Notice Notice Delivered To: Patient Relationship to Patient: Warehouse Logistics Manager Name: Delivery Method: HAND - Hand Delivered [place] Days: Prior Verbal Notification: Recipient Understood Notice: Yes Recipient Signature: Yes Med Rec Note Co-signed by Attending: Coverage Notice Comment: Last DP export: 01/20/19 1:28 p Patient Name: NIKKO SKELTON Page 18038 at 1621 All edits/amendments must be made on the electronic document DICTATION DATE: 01/22/191619 REGIONAL INTERMODAL TRUCK DRIVER: SWETA 01/22/191619 RPT#: [id number] DC DATE: STATUS: ADM IN [facility] [address] [place] [address] END OF REPORT
--- NOTE | 2019-01-22 16:30 | MORECARE ---
CASE MANAGEMENT DISCHARGE SUMMARY PATIENT: NIKKO SKELTON UNIT: [id number] ADM DATE: 01/22/19 AGE: 63 : 53 SEX: F ROOM/BED: D.5902 AUTHOR: ERWIN,DOC PHYSICIAN: REFERRING PHYSICIAN: SUSAN JOHNSON MD DATE OF SERVICE: 01/22/19 Discharge Plan Patient Name: NIKKO SKELTON Facility: [facility]:[place] : 1955 Planned Disposition: Home with Home Health Anticipated Discharge Date: Discharge Date: Expected LOS: Initial Reviewer: [email or web address] Initial Review Date: 01/20/2019 Generated: 01/22/19 5:30 pm Comments DCP- Discharge Planning Updated by [email or web address]: Parviz Delgado on 01/22/19 3:[address] Patient Name: NIKKO SKELTON Admission Status: ER Accout number: [id number] Admission Date: 01-22-2019 : 1955 Admission Diagnosis: Attending: SUSAN JOHNSON Current LOS: 1 Anticipated DC Date: Planned Disposition: Home with Home Health Primary Insurance: MEDICARE A & B PLANNED EXTERNAL PROVIDER: [facility] Discharge Planning Comments: CM MET WITH PT IN ROOM TO DISCUSS DISCHARGE PLANNING AND NEEDS. PT REPORTS LIVING AT HOME INDEPENDENTLY WITH HER SIGNFICANT OTHER. PT HAS HOME AND PORTABLE OXGYEN, NEBLULIZER, TRILOGY, CANE, WALKER AND ELECTRIC WHEELCHAIR FROM [facility]. PT HAD HOME HEALTH SET UP FROM [facility] WITH [facility] BUT THEY DID NOT ADMIT HER BEFORE SHE GOT SICK AND HAD TO COME BACK TO HOSPITAL. CM DISCUSSED AVAILABILITY OF HOME HEALTH, REHAB SERVICES AND MEDICAL EQUIPMENT. PT REPORTS UNKNOWN DISCHARGE NEEDS AT THIS TIME AND WILL LET CM KNOW WHEN THEY FIND OUT WHAT IS WRONG AND WHEN SHE IS CLOSER TO GETTING OUT OF THE HOSPITAL. PT IS HOPEFUL TO GO HOME WITH HOME HEALTH RESUMPTION BUT IS NOT SURE AT THIS TIME. PT REPORTS HER SIGNIFICANT OTHER WILL PICK HER UP FOR DISCHARGE HOME. PT WANTS CLEANING MACHINE FOR HER TRILOGY FROM [facility] AND WILL PAY FOR IT IF NECESSARY. CM NOTIFIED [facility] WHO WILL FOLLOW UP WITH PT. PT HAS HOME HEALTH WITH [facility], IF SHE GOES HOME, WILL NEED NEW HOME HEALTH ORDER AND CHOICE LETTER SIGNED TO COMPLETE ARRANGEMENT. PT IS NOT SURE IS SHE WILL NEED REHAB BEFORE GOING HOME. CM TO FOLLOW AND ASSIST IF NEEDED. Pet Caregiver: Parviz Delgado DCPIA - Discharge Planning Initial Assessment Updated by [email or web address]: Parviz Delgado on 01/22/19 4:21 pm * Is the patient Alert and Oriented? Yes * How many steps to enter\exit or inside your home? * PCP DR. ISAAC * Pharmacy [facility] * Preadmission Environment Home with Family * ADLs Independent * Equipment Cane Nebulizer Oxygen Power Chair or Electric Scooter Walker * Other Equipment TRILOGY MACHINE - [facility] AND PORTABLE OXYGEN * List name and contact numbers for known caregivers / representatives who currently or will assist patient after discharge: GUERO AVILA, SIGNIFICANT OTHER, * Verbal permission to speak to the caregivers and representatives has been obtained from the patient. Yes * Community resources currently utilized Home Health * Please name any agencies selected above. [facility], NOT YET ADMITTED AT HOME * Additional services required to return to the preadmission environment? No * Can the patient safely return to the preadmission environment? Yes * Has this patient been hospitalized within the prior 30 days at any hospital? Yes Coverage Notice Reviewer: [email or web address] Chaya Copeland Notice Issued Date-Time: 01/21/2019 17:03 Notice Type: Medicare Outpatient Observation Notice Notice Delivered To: Patient Relationship to Patient: Hospice Music Therapist Name: Delivery Method: HAND - Hand Delivered [place] Days: Prior Verbal Notification: Recipient Understood Notice: Yes Recipient Signature: Yes Med Rec Note Co-signed by Attending: Coverage Notice Comment: Last DP export: 01/22/19 3:21 p Patient Name: NIKKO SKELTON Page [phone] at 1630 All edits/amendments must be made on the electronic document DICTATION DATE: 01/22/19 1630 METAL SORTER: SWETA 01/22/19 1630 RPT#: [id number] MI DATE: STATUS: ADM IN [facility] [address] [place] [address] END OF REPORT
--- NOTE | 2019-01-22 17:35 | NUR ---
PT SITTING UP ON THE SIDE OF BED WITH RE-BREATHER AT 100%. PT AT BEDSIDE. NO S/S OF DISTRESS. PT DENIES ANY NEEDS OR PAIN AT THIS TIME. BED LOW CALL LIGHT WITHIN REACH. WILL CONTINUE TO MONITOR.
--- NOTE | 2019-01-22 18:06 | NUR ---
PT EATING DINNER, JUST GOT DONE WITH SPONGE BATH. PT DENIES ANY NEEDS AT THIS TIME. CALL LIGHT IN REACH, JONNY NOTED.
[2019-01-22 20:00] VITALS: BP 162/84
[2019-01-23 00:30] VITALS: BP 133/75; BP 152/78
--- NOTE | 2019-01-23 01:46 | NUR ---
PT SITTING UP IN BED RESTING. RR EVEN AND UNLABORED. BED LOW CALL LIGHT WITHIN REACH. WILL CONTINUE TO MONITOR.
[2019-01-23 04:30] VITALS: BP 131/88
--- NOTE | 2019-01-23 05:12 | NUR ---
I have reviewed this patient and I concur with the Shift Assessment completed by the Licensed Practical Nurse today this shift.
[2019-01-23 05:50] LABS: BASOPHILS 0.1 % (0-2); EOSINOPHILS 0 % (0-7); HEMATOCRIT 33.8 % (36.0-48.0); HEMOGLOBIN 10.7 g/dL (12-16); IMMATURE GRANULOCYTES 0.7 % (0-5); LYMPHOCYTES 5.4 % (15-50); MCH 29.6 pg (26.0-34.0); MCHC 31.7 g/dL (31.0-37.0); MCV 93.4 fL (80.0-100.0); MEAN PLATELET VOLUME 10.1 fL (7.4-10.4); MONOCYTES 6.5 % (2-11); NEUTROPHILS 87.3 % (40-80); PLATELET COUNT 134 10x3/uL (130-400); RBC 3.62 10x6/uL (4.00-5.40); RDW 15.6 % (11.5-14.5)
[2019-01-23 06:01] LABS: ANION GAP 9.6 mmol/L (8-16); CALCIUM 8.8 mg/dL (8.5-10.1); CREATININE - SERUM 0.9 mg/dL (0.6-1.3); POTASSIUM - SERUM 4.6 mmol/L (3.5-5.1)
[2019-01-23 08:33] VITALS: BP 154/67
[2019-01-23 11:48] VITALS: BP 144/61
[2019-01-23 15:52] VITALS: BP 129/75
--- NOTE | 2019-01-23 19:33 | NUR ---
PT SITTING UP IN BED ALERT AND ORIENTED ON 2L NC. PT COMPLAINS OF 6/10 PAIN IN BACK AND KNEES. NO S/S OF DISTRESS. BED LOW CALL LIGHT WITHIN REACH. WILL CONTINUE TO MONITOR.
[2019-01-23 20:00] VITALS: BP 128/76
--- NOTE | 2019-01-24 01:05 | NUR ---
PT COMPLAINED OF NOSE BLEED. APPLIED SALINE HUMIDIFER TO O2. PT DENIES ANY FURTHER NEEDS AT THIS TIME. BED LOW CALL LIGHT WITHIN REACH. WILL CONTINUE TO MONITOR
[2019-01-24 05:00] VITALS: BP 118/66
[2019-01-24 06:15] LABS: HEMATOCRIT 32.4 % (36.0-48.0); HEMOGLOBIN 10.6 g/dL (12-16); LYMPHOCYTES 6.5 % (15-50); MCH 30.6 pg (26.0-34.0); MCHC 32.7 g/dL (31.0-37.0); MCV 93.6 fL (80.0-100.0); MEAN PLATELET VOLUME 9.8 fL (7.4-10.4); PLATELET COUNT 113 10x3/uL (130-400); RBC 3.46 10x6/uL (4.00-5.40); RDW 14.9 % (11.5-14.5); WBC 5.7 10x3/uL (4.8-10.8)
[2019-01-24 06:25] LABS: ANION GAP 3.1 mmol/L (8-16); CALCIUM 8.7 mg/dL (8.5-10.1); POTASSIUM - SERUM 4.7 mmol/L (3.5-5.1)
[2019-01-24 06:37] LABS: CARBON DIOXIDE 40.6 mmol/L (21.0-32.0)
[2019-01-24 09:10] VITALS: BP 135/71
--- NOTE | 2019-01-24 10:06 | NUR ---
PT RESTING IN BED, ASSISTED PT TO SIT ON THE SIDE OF THE BED TO EAT BREAKFAST. AM MEDICATIONS GIVEN ORDERED. SHIFT ASSESSMENT PERFORMED. CONT O2 NOTED AT 8L HI AGUSTÍN VIA NC. DENIES ANY OTHER NEEDS AT THIS TIME, CALL LIGHT WITHIN REACH, WILL CONT TO FOLLOW PLAN OF CARE
--- NOTE | 2019-01-24 12:08 | NUR ---
PIV TO PT RIGHT FA INFILTRATED, 22G PIV RESITED TO PT RIGHT FA X1 ATTEMPT. PT TOLERATED WELL, WILL CONT TO FOLLOW POC
[2019-01-24 13:13] LABS: FUNGUS MYCOLOGY CULTURE Preliminary report (())
[2019-01-24 13:24] VITALS: BP 135/71
[2019-01-24 17:05] VITALS: BP 137/70
--- NOTE | 2019-01-24 19:27 | NUR ---
RECEIVED REPORT, WILL ASSUME CARE OF PT, PT IS WASHING UP, FREIGHT CAR LOADER CHANGING LINEN, WILL CONTINUE PLAN OF CARE
[2019-01-24 20:00] VITALS: BP 135/75
[2019-01-25] VITALS: BP 132/70
[2019-01-25 05:36] LABS: BASOPHILS 0.1 % (0-2); EOSINOPHILS 0.1 % (0-7); HEMATOCRIT 32.6 % (36.0-48.0); HEMOGLOBIN 10.4 g/dL (12-16); IMMATURE GRANULOCYTES 0.6 % (0-5); LYMPHOCYTES 4.4 % (15-50); MCH 29.8 pg (26.0-34.0); MCHC 31.9 g/dL (31.0-37.0); MCV 93.4 fL (80.0-100.0); MEAN PLATELET VOLUME 10.1 fL (7.4-10.4); MONOCYTES 7.8 % (2-11); PLATELET COUNT 120 10x3/uL (130-400); RBC 3.49 10x6/uL (4.00-5.40); RDW 15.5 % (11.5-14.5)
[2019-01-25 06:04] LABS: ANION GAP 4.9 mmol/L (8-16); CALCIUM 8.4 mg/dL (8.5-10.1); CARBON DIOXIDE 39.7 mmol/L (21.0-32.0); POTASSIUM - SERUM 4.6 mmol/L (3.5-5.1)
[2019-01-25 06:22] VITALS: BP 141/74
--- NOTE | 2019-01-25 07:00 | NUR ---
RECEIVED REPORT. ASSUMED CARE OF PATIENT. SITTING UP TO SIDE OF BED. RESP EVEN AND UNLABORED. NO DISTRESS. CALL LIGHT WITHIN REACH. DENIES NEEDS AT THIS TIME.
[2019-01-25 09:08] VITALS: BP 138/74
--- NOTE | 2019-01-25 09:30 | NUR ---
OOB WITH PT AMBULATING IN HALLWAY. NO DISTRESS.
[2019-01-25 11:31] VITALS: BP 138/70
--- NOTE | 2019-01-25 11:57 | NUR ---
MEDICATED FOR ANXIETY AT THIS TIME. NO DISTRESS. CALL LIGHT WITHIN REACH. PATIETN SITTING TO SIDE OF BED DOING A PUZZLE.
--- NOTE | 2019-01-25 13:05 | NUR ---
MEDICATED FOR PAIN AT THIS TIME. NO DISTRESS. COMPLAINS OF RIGHT KNEE PAIN.
[2019-01-25 15:30] VITALS: BP 184/77
--- NOTE | 2019-01-25 15:30 | NUR ---
RESTING IN BED. DO NOT DISTURB SIGN PLACED ON DOOR SO PATIENT CAN REST. NO DISTRESS NOTED.
--- NOTE | 2019-01-25 18:22 | NUR ---
NO DISTRESS. CALL LIGHT WITHIN REACH. DENIES NEEDS. NO VISITORS AT BEDSIDE.
--- NOTE | 2019-01-25 20:28 | NUR ---
RECEIVED REPORT, WILL ASSUME CARE OF PT, PT VISITING WITH FRIEND, DENIES ANY NEEDS AT THIS TIME, BED IS LOW, SRX2, CALL LIGHT IN REACH, WILL CONTINUE PLAN OF CARE
[2019-01-26] VITALS: BP 131/58
--- NOTE | 2019-01-26 02:53 | NUR ---
SLEEPING, BED IS LOW, SRX2, CALL LIGHT IN REACH, WILL CONTINUE PLAN OF CARE
[2019-01-26 03:00] VITALS: BP 140/67
--- NOTE | 2019-01-26 03:01 | NUR ---
I have reviewed this patient and I concur with the Shift Assessment completed by the Licensed Practical Nurse today this shift.
[2019-01-26 05:25] LABS: BASOPHILS 0.1 % (0-2); EOSINOPHILS 0.1 % (0-7); HEMATOCRIT 38.9 % (36.0-48.0); IMMATURE GRANULOCYTES 1.2 % (0-5); MCH 29.3 pg (26.0-34.0); MCHC 30.8 g/dL (31.0-37.0); MCV 95.1 fL (80.0-100.0); MEAN PLATELET VOLUME 10.3 fL (7.4-10.4); NEUTROPHILS 90.6 % (40-80); RBC 4.09 10x6/uL (4.00-5.40); RDW 15.5 % (11.5-14.5)
[2019-01-26 05:28] LABS: PLATELET COUNT 151 10x3/uL (130-400)
[2019-01-26 05:44] LABS: ANION GAP 6.2 mmol/L (8-16); POTASSIUM - SERUM 4.6 mmol/L (3.5-5.1)
[2019-01-26 05:50] LABS: CARBON DIOXIDE 42.4 mmol/L (21.0-32.0)
--- NOTE | 2019-01-26 07:00 | NUR ---
RECEIVED REPORT. ASSUMED CARE OF PATIENT. PATIENT RESTING IN BED WITH EYES OPEN. ALERT/ORIENTED. STATES SHE SLEPT OKAY LAST NIGHT. CALL LIGHT WITHIN REACH. DENIES NEEDS AT THIS TIME. NO DISTRESS.
[2019-01-26 08:32] VITALS: BP 141/66
--- NOTE | 2019-01-26 11:59 | NUR ---
PATIENT SITTING TO SIDE OF BED. PATIENT CHANGED HER MIND ABOUT WANTING THE PAIN MEDICATION. PAIN MEDICATION RETURNED.
[2019-01-26 12:27] VITALS: BP 156/78
--- NOTE | 2019-01-26 13:35 | NUR ---
MEDICATED FOR ANXIETY AT THIS TIME. PATIENT WITH FEMALE VISITOR AT BEDSIDE. NO DISTRESS.
[2019-01-26 15:58] VITALS: BP 139/65
--- NOTE | 2019-01-26 17:10 | NUR ---
NEW HUMIDIFICATION APPLIED TO OXYGEN. NO DISTRESS. VISITOR AT BEDSIDE. CALL LIGHT WITHIN REACH. NO DISTRESS.
--- NOTE | 2019-01-26 19:13 | NUR ---
BEDSIDE SHIFT REPORT COMPLETE AT 1900. PATIENT IN NO DISTRESS AND DENIES ANY NEEDS.
--- NOTE | 2019-01-26 19:22 | NUR ---
RECEIVED REPORT, WILL ASSUME CARE OF PT, SITTING UP ON SIDE OF BED, DENIES ANY NEEDS AT THIS TIME, CALL LIGHT IN REACH, WILL CONTINUE PLAN OF CARE
[2019-01-26 20:26] VITALS: BP 134/61
[2019-01-27 01:17] VITALS: BP 121/66
--- NOTE | 2019-01-27 03:18 | NUR ---
I have reviewed this patient and I concur with the Shift Assessment completed by the Licensed Practical Nurse today this shift.
--- NOTE | 2019-01-27 03:37 | NUR ---
PT ASKING FOR TRAMADOL/ TYLENOL GAVE ORDER
[2019-01-27 04:44] LABS: BASOPHILS 0.1 % (0-2); EOSINOPHILS 0 % (0-7); HEMATOCRIT 37.1 % (36.0-48.0); HEMOGLOBIN 11.5 g/dL (12-16); LYMPHOCYTES 4.9 % (15-50); MCH 29.4 pg (26.0-34.0); MCV 94.9 fL (80.0-100.0); MEAN PLATELET VOLUME 10.4 fL (7.4-10.4); MONOCYTES 6.9 % (2-11); NEUTROPHILS 86.1 % (40-80); PLATELET COUNT 139 10x3/uL (130-400); RBC 3.91 10x6/uL (4.00-5.40); RDW 15.6 % (11.5-14.5); WBC 8.9 10x3/uL (4.8-10.8)
[2019-01-27 04:52] LABS: ANION GAP 4.1 mmol/L (8-16); CALCIUM 8.7 mg/dL (8.5-10.1); POTASSIUM - SERUM 4.3 mmol/L (3.5-5.1)
[2019-01-27 04:56] LABS: CARBON DIOXIDE 43.2 mmol/L (21.0-32.0)
[2019-01-27 05:55] VITALS: BP 126/69
[2019-01-27 08:08] VITALS: BP 137/76
--- NOTE | 2019-01-27 08:54 | NUR ---
PT SITTING ON SIDE OF BED EATING BREAKFAST. SHIFT ASSESSMENT PERFORMED. DENIES ANY NEEDS AT THIS TIME. AM MEDS GIVEN ORDERED. CALL LIGHT WITHIN REACH. WILL CONT TO FOLLOW POC
[2019-01-27 12:08] VITALS: BP 134/75
--- NOTE | 2019-01-27 12:30 | NUR ---
PT SITTING ON SIDE OF BED. DENIES ANY NEEDS AT THIS TIME. CALL LIGHT WITHIN REACH. WILL CONT TO FOLLOW POC
--- NOTE | 2019-01-27 17:00 | NUR ---
PT REQUEST MEDICATION FOR [place]. PRN TRAMADOL AND APAP GIVEN. WILL CONT TO FOLLOW POC
--- NOTE | 2019-01-27 19:32 | NUR ---
ASSESSMENT COMPLETE, PT A&O. RESPERATIONS LABORED ON O2 AT 3.5 LITERS VIA HIGH FLOW CANULA. IV TO RIGHT ARM SL, SITE CLEAN AND DRY. PT DENIES PAIN OR NEEDS AT THIS TIME, BED LOW, CL IN REACH.
[2019-01-27 22:04] VITALS: BP 123/64
[2019-01-28 00:04] VITALS: BP 122/67
--- NOTE | 2019-01-28 04:27 | NUR ---
I have reviewed this patient and I concur with the Shift Assessment completed by the Licensed Practical Nurse today this shift.
[2019-01-28 05:42] LABS: BASOPHILS 0.1 % (0-2); EOSINOPHILS 0.1 % (0-7); HEMATOCRIT 37.6 % (36.0-48.0); HEMOGLOBIN 11.8 g/dL (12-16); IMMATURE GRANULOCYTES 3.2 % (0-5); LYMPHOCYTES 4.6 % (15-50); MCH 29.5 pg (26.0-34.0); MCHC 31.4 g/dL (31.0-37.0); MEAN PLATELET VOLUME 10.6 fL (7.4-10.4); MONOCYTES 6.7 % (2-11); NEUTROPHILS 85.3 % (40-80); PLATELET COUNT 162 10x3/uL (130-400); RDW 15.6 % (11.5-14.5); WBC 10.3 10x3/uL (4.8-10.8)
[2019-01-28 05:55] VITALS: BP 150/81
[2019-01-28 06:36] LABS: ANION GAP 9.7 mmol/L (8-16); CALCIUM 8.7 mg/dL (8.5-10.1); CARBON DIOXIDE 37.8 mmol/L (21.0-32.0); CREATININE - SERUM 1.2 mg/dL (0.6-1.3); POTASSIUM - SERUM 4.5 mmol/L (3.5-5.1)
--- NOTE | 2019-01-28 07:00 | NUR ---
RECEIVED REPORT. ASSUMED CARE OF PATIENT. NO DISTRESS. PATIENT SITTING TO SIDE OF BED. CALL LIGHT WITHIN REACH. RESP EVEN AND UNLABORED.
[2019-01-28 07:42] VITALS: BP 117/69
--- NOTE | 2019-01-28 09:26 | MORECARE ---
CASE MANAGEMENT DISCHARGE SUMMARY PATIENT: NIKKO SKELTON UNIT: [id number] ADM DATE: 01/22/19 AGE: 63 : 51 SEX: F ROOM/BED: D.4823 AUTHOR: ERWIN,DOC PHYSICIAN: REFERRING PHYSICIAN: SUSAN JOHNSON MD DATE OF SERVICE: 01/28/19 Discharge Plan Patient Name: NIKKO SKELTON Facility: [facility]:[place] : 1955 Planned Disposition: Home with Home Health Anticipated Discharge Date: Discharge Date: Expected LOS: Initial Reviewer: [id number] Initial Review Date: 01/20/2019 Generated: 01/28/19 10:26 am Comments DCP- Discharge Planning Updated by [id number]: Parviz Delgado on 01/22/19 3:[address] Patient Name: NIKKO SKELTON Admission Status: ER Accout number: [id number] Admission Date: 01-22-2019 : 1955 Admission Diagnosis: Attending: SUSAN JOHNSON Current LOS: 1 Anticipated DC Date: Planned Disposition: Home with Home Health Primary Insurance: MEDICARE A & B PLANNED EXTERNAL PROVIDER: [facility] Discharge Planning Comments: CM MET WITH PT IN ROOM TO DISCUSS DISCHARGE PLANNING AND NEEDS. PT REPORTS LIVING AT HOME INDEPENDENTLY WITH HER SIGNFICANT OTHER. PT HAS HOME AND PORTABLE OXGYEN, NEBLULIZER, TRILOGY, CANE, WALKER AND ELECTRIC WHEELCHAIR FROM [facility]. PT HAD HOME HEALTH SET UP FROM [facility] BUT THEY DID NOT ADMIT HER BEFORE SHE GOT SICK AND HAD TO COME BACK TO HOSPITAL. CM DISCUSSED AVAILABILITY OF HOME HEALTH, REHAB SERVICES AND MEDICAL EQUIPMENT. PT REPORTS UNKNOWN DISCHARGE NEEDS AT THIS TIME AND WILL LET CM KNOW WHEN THEY FIND OUT WHAT IS WRONG AND WHEN SHE IS CLOSER TO GETTING OUT OF THE HOSPITAL. PT IS HOPEFUL TO GO HOME WITH HOME HEALTH RESUMPTION BUT IS NOT SURE AT THIS TIME. PT REPORTS HER SIGNIFICANT OTHER WILL PICK HER UP FOR DISCHARGE HOME. PT WANTS CLEANING MACHINE FOR HER TRILOGY FROM [facility] AND WILL PAY FOR IT IF NECESSARY. CM NOTIFIED MC OF [facility] WHO WILL FOLLOW UP WITH PT. PT HAS HOME HEALTH WITH [facility], IF SHE GOES HOME, WILL NEED NEW HOME HEALTH ORDER AND CHOICE LETTER SIGNED TO COMPLETE ARRANGEMENT. PT IS NOT SURE IS SHE WILL NEED REHAB BEFORE GOING HOME. CM TO FOLLOW AND ASSIST IF NEEDED. Hide Trimmer: Parviz Delgado DCPIA - Discharge Planning Initial Assessment Updated by [email or web address]: Parviz Delgado on 01/22/19 4:21 pm * Is the patient Alert and Oriented? Yes * How many steps to enter\exit or inside your home? * PCP DR. ISAAC * Pharmacy [facility] * Preadmission Environment Home with Family * ADLs Independent * Equipment Cane Nebulizer Oxygen Power Chair or Electric Scooter Walker * Other Equipment TRILOGY MACHINE - [facility] AND PORTABLE OXYGEN * List name and contact numbers for known caregivers / representatives who currently or will assist patient after discharge: GUERO AVILA, SIGNIFICANT OTHER, * Verbal permission to speak to the caregivers and representatives has been obtained from the patient. Yes * Community resources currently utilized Home Health * Please name any agencies selected above. [facility], NOT YET ADMITTED AT HOME * Additional services required to return to the preadmission environment? No * Can the patient safely return to the preadmission environment? Yes * Has this patient been hospitalized within the prior 30 days at any hospital? Yes Coverage Notice Reviewer: [id number] Chaya Copeland Notice Issued Date-Time: 01/21/2019 17:03 Notice Type: Medicare Outpatient Observation Notice Notice Delivered To: Patient Relationship to Patient: Field Operations Farm Manager Name: Delivery Method: HAND - Hand Delivered Socorro Days: Prior Verbal Notification: Recipient Understood Notice: Yes Recipient Signature: Yes Med Rec Note Co-signed by Attending: Coverage Notice Comment: Last DP export: 01/22/19 3:30 p Patient Name: NIKKO SKELTON Page 37825 at 0926 All edits/amendments must be made on the electronic document DICTATION DATE: 01/28/19925 PRACTICE NURSE: SWETA 01/28/19925 RPT#: [id number] PR DATE: STATUS: ADM IN [facility] [address] [place] [address] END OF REPORT
--- NOTE | 2019-01-28 11:12 | NUR ---
MEDICATED FOR PAIN. NO DISTRESS. PATIENT IS SITTING TO SIDE OF BED AT THIS TIME. NO DISTRESS. CALL LIGHT WITHIN REACH.
[2019-01-28 11:25] VITALS: BP 131/79
--- NOTE | 2019-01-28 13:05 | NUR ---
SITTING TO BEDSIDE. STILL WAITING ON PT TO WALK HER. NO DISTRESS. CALL LIGHT WITHIN REACH.
--- NOTE | 2019-01-28 14:54 | NUR ---
Nutrition follow-up: Diet: Regular PO intake ~50% of meals Labs reviewed Wt: 224# PO intake improving. RDN following.
--- NOTE | 2019-01-28 15:18 | NUR ---
SITTING TO SIDE OF BED DOING CROSSWORD PUZZLE. NO DISTRESS. CALL LIGHT WITHIN REACH.
[2019-01-28 15:26] VITALS: BP 142/69
--- NOTE | 2019-01-28 16:47 | MORECARE ---
CASE MANAGEMENT DISCHARGE SUMMARY PATIENT: NIKKO SKELTON UNIT: [id number] ADM DATE: 01/22/19 AGE: 63 : 53 SEX: F ROOM/BED: D.9636 AUTHOR: ERWIN,DOC PHYSICIAN: REFERRING PHYSICIAN: SUSAN JOHNSNO MD DATE OF SERVICE: 01/28/19 Discharge Plan Patient Name: NIKKO SKELTON Facility: [facility]:[place] : 1955 Planned Disposition: Home with Home Health Anticipated Discharge Date: 01/29/19 Discharge Date: Expected LOS: 7 Initial Reviewer: [id number] Initial Review Date: 01/20/2019 Generated: 01/28/19 5:47 pm Comments DCP- Discharge Planning Updated by [id number]: Parviz Delgado on 01/22/19 3:[address] Patient Name: NIKKO SKELTON Admission Status: ER Accout number: [id number] Admission Date: 01-22-2019 : 1955 Admission Diagnosis: Attending: SUSAN JOHNSON Current LOS: 1 Anticipated DC Date: Planned Disposition: Home with Home Health Primary Insurance: MEDICARE A & B PLANNED EXTERNAL PROVIDER: [facility] Discharge Planning Comments: CM MET WITH PT IN ROOM TO DISCUSS DISCHARGE PLANNING AND NEEDS. PT REPORTS LIVING AT HOME INDEPENDENTLY WITH HER SIGNFICANT OTHER. PT HAS HOME AND PORTABLE OXGYEN, NEBLULIZER, TRILOGY, CANE, WALKER AND ELECTRIC WHEELCHAIR FROM [facility]. PT HAD HOME HEALTH SET UP FROM [facility] BUT THEY DID NOT ADMIT HER BEFORE SHE GOT SICK AND HAD TO COME BACK TO HOSPITAL. CM DISCUSSED AVAILABILITY OF HOME HEALTH, REHAB SERVICES AND MEDICAL EQUIPMENT. PT REPORTS UNKNOWN DISCHARGE NEEDS AT THIS TIME AND WILL LET CM KNOW WHEN THEY FIND OUT WHAT IS WRONG AND WHEN SHE IS CLOSER TO GETTING OUT OF THE HOSPITAL. PT IS HOPEFUL TO GO HOME WITH HOME HEALTH RESUMPTION BUT IS NOT SURE AT THIS TIME. PT REPORTS HER SIGNIFICANT OTHER WILL PICK HER UP FOR DISCHARGE HOME. PT WANTS CLEANING MACHINE FOR HER TRILOGY FROM [facility] AND WILL PAY FOR IT IF NECESSARY. CM NOTIFIED MC OF [facility] WHO WILL FOLLOW UP WITH PT. PT HAS HOME HEALTH WITH [facility], IF SHE GOES HOME, WILL NEED NEW HOME HEALTH ORDER AND CHOICE LETTER SIGNED TO COMPLETE ARRANGEMENT. PT IS NOT SURE IS SHE WILL NEED REHAB BEFORE GOING HOME. CM TO FOLLOW AND ASSIST IF NEEDED. Manager Home Healthcare: Parviz Delgado DCPIA - Discharge Planning Initial Assessment Updated by [id number]: Parviz Delgado on 01/22/19 4:21 pm * Is the patient Alert and Oriented? Yes * How many steps to enter\exit or inside your home? * PCP DR. ISAAC * Pharmacy [facility] * Preadmission Environment Home with Family * ADLs Independent * Equipment Cane Nebulizer Oxygen Power Chair or Electric Scooter Walker * Other Equipment TRILOGY MACHINE - [facility] AND PORTABLE OXYGEN * List name and contact numbers for known caregivers / representatives who currently or will assist patient after discharge: GUERO AVILA, SIGNIFICANT OTHER, * Verbal permission to speak to the caregivers and representatives has been obtained from the patient. Yes * Community resources currently utilized Home Health * Please name any agencies selected above. [facility], NOT YET ADMITTED AT HOME * Additional services required to return to the preadmission environment? No * Can the patient safely return to the preadmission environment? Yes * Has this patient been hospitalized within the prior 30 days at any hospital? Yes Coverage Notice Reviewer: [id number] - Nettie Copeland Notice Issued Date-Time: 01/21/2019 17:03 Notice Type: Medicare Outpatient Observation Notice Notice Delivered To: Patient Relationship to Patient: Salesperson Fashion Accessories Name: Delivery Method: HAND - Hand Delivered Socorro Days: Prior Verbal Notification: Recipient Understood Notice: Yes Recipient Signature: Yes Med Rec Note Co-signed by Attending: Coverage Notice Comment: Reviewer: [id number] - Parviz Delgado Notice Issued Date-Time: 01/28/2019 16:40 Notice Type: IM Discharge Notice Notice Delivered To: Patient Relationship to Patient: Salesperson Fashion Accessories Name: Delivery Method: HAND - Hand Delivered Socorro Days: Prior Verbal Notification: Recipient Understood Notice: Yes Recipient Signature: Yes Med Rec Note Co-signed by Attending: Coverage Notice Comment: Last DP export: 01/28/19 8:26 a Patient Name: NIKKO SKELTON Page 55035 at 1646 All edits/amendments must be made on the electronic document DICTATION DATE: 041646 SILVER SPRAY WORKER: DM 01/28/191646 RPT#: [id number] DC DATE: STATUS: ADM IN [facility] [address] [place] [address] END OF REPORT
--- NOTE | 2019-01-28 16:56 | MORECARE ---
CASE MANAGEMENT DISCHARGE SUMMARY PATIENT: NIKKO SKELTON UNIT: [id number] ADM DATE: 01/22/19 AGE: 63 : 53 SEX: F ROOM/BED: D.4140 AUTHOR: ERWIN,DOC PHYSICIAN: REFERRING PHYSICIAN: SUSAN JOHNSON MD DATE OF SERVICE: 01/28/19 Discharge Plan Patient Name: NIKKO SKELTON Facility: [facility]:[place] : 1955 Planned Disposition: Home with Home Health Anticipated Discharge Date: 01/29/19 Discharge Date: Expected LOS: 7 Initial Reviewer: [id number] Initial Review Date: 01/20/2019 Generated: 01/28/19 5:56 pm Comments DCP- Discharge Planning Updated by [email or web address]: Parviz Delgado on 01/22/19 3:[address] Patient Name: NIKKO SKELTON Admission Status: ER Accout number: [id number] Admission Date: 01-22-2019 : 1955 Admission Diagnosis: Attending: SUSAN JOHNSON Current LOS: 1 Anticipated DC Date: Planned Disposition: Home with Home Health Primary Insurance: MEDICARE A & B PLANNED EXTERNAL PROVIDER: [facility] Discharge Planning Comments: CM MET WITH PT IN ROOM TO DISCUSS DISCHARGE PLANNING AND NEEDS. PT REPORTS LIVING AT HOME INDEPENDENTLY WITH HER SIGNFICANT OTHER. PT HAS HOME AND PORTABLE OXGYEN, NEBLULIZER, TRILOGY, CANE, WALKER AND ELECTRIC WHEELCHAIR FROM [facility]. PT HAD HOME HEALTH SET UP FROM [facility] BUT THEY DID NOT ADMIT HER BEFORE SHE GOT SICK AND HAD TO COME BACK TO HOSPITAL. CM DISCUSSED AVAILABILITY OF HOME HEALTH, REHAB SERVICES AND MEDICAL EQUIPMENT. PT REPORTS UNKNOWN DISCHARGE NEEDS AT THIS TIME AND WILL LET CM KNOW WHEN THEY FIND OUT WHAT IS WRONG AND WHEN SHE IS CLOSER TO GETTING OUT OF THE HOSPITAL. PT IS HOPEFUL TO GO HOME WITH HOME HEALTH RESUMPTION BUT IS NOT SURE AT THIS TIME. PT REPORTS HER SIGNIFICANT OTHER WILL PICK HER UP FOR DISCHARGE HOME. PT WANTS CLEANING MACHINE FOR HER TRILOGY FROM [facility] AND WILL PAY FOR IT IF NECESSARY. CM NOTIFIED MC OF [facility] WHO WILL FOLLOW UP WITH PT. PT HAS HOME HEALTH WITH [facility], IF SHE GOES HOME, WILL NEED NEW HOME HEALTH ORDER AND CHOICE LETTER SIGNED TO COMPLETE ARRANGEMENT. PT IS NOT SURE IS SHE WILL NEED REHAB BEFORE GOING HOME. CM TO FOLLOW AND ASSIST IF NEEDED. Design Sales Consultant: Parviz Delgado DCPIA - Discharge Planning Initial Assessment Updated by [email or web address]: Parviz Delgado on 01/22/19 4:21 pm * Is the patient Alert and Oriented? Yes * How many steps to enter\exit or inside your home? * PCP DR. ISAAC * Pharmacy [facility] * Preadmission Environment Home with Family * ADLs Independent * Equipment Cane Nebulizer Oxygen Power Chair or Electric Scooter Walker * Other Equipment TRILOGY MACHINE - [facility] AND PORTABLE OXYGEN * List name and contact numbers for known caregivers / representatives who currently or will assist patient after discharge: GUERO AVILA, SIGNIFICANT OTHER, * Verbal permission to speak to the caregivers and representatives has been obtained from the patient. Yes * Community resources currently utilized Home Health * Please name any agencies selected above. [facility], NOT YET ADMITTED AT HOME * Additional services required to return to the preadmission environment? No * Can the patient safely return to the preadmission environment? Yes * Has this patient been hospitalized within the prior 30 days at any hospital? Yes External Providers External Provider: [facility] Next Contact Date: 01/30/2019 Service Request Date: Service Type: Resolution: Reviewer: Comments: Coverage Notice Reviewer: [id number] Chaya Copeland Notice Issued Date-Time: 01/21/2019 17:03 Notice Type: Medicare Outpatient Observation Notice Notice Delivered To: Patient Relationship to Patient: Veneer Drier Feeder Name: Delivery Method: HAND - Hand Delivered Socorro Days: Prior Verbal Notification: Recipient Understood Notice: Yes Recipient Signature: Yes Med Rec Note Co-signed by Attending: Coverage Notice Comment: Reviewer: [id number] - Parviz Delgado Notice Issued Date-Time: 01/28/2019 16:40 Notice Type: IM Discharge Notice Notice Delivered To: Patient Relationship to Patient: Veneer Drier Feeder Name: Delivery Method: HAND - Hand Delivered Socorro Days: Prior Verbal Notification: Recipient Understood Notice: Yes Recipient Signature: Yes Med Rec Note Co-signed by Attending: Coverage Notice Comment: Last DP export: 01/28/19 3:47 p Patient Name: NIKKO SKELTON Page 09249 at 1656 All edits/amendments must be made on the electronic document DICTATION DATE: 01/28/191654 BATHHOUSE KEEPER: SWETA 01/28/191654 RPT#: [id number] DC DATE: STATUS: ADM IN [facility] [address] [place] [address] END OF REPORT
--- NOTE | 2019-01-28 17:03 | MORECARE ---
CASE MANAGEMENT DISCHARGE SUMMARY PATIENT: NIKKO SKELTON UNIT: [id number] ADM DATE: 01/22/19 AGE: 63 : 53 SEX: F ROOM/BED: D.6198 AUTHOR: ERWIN,DOC PHYSICIAN: REFERRING PHYSICIAN: SUSAN JOHNSON MD DATE OF SERVICE: 01/28/19 Discharge Plan Patient Name: NIKKO SKELTON Facility: [facility]:[place] : 1955 Planned Disposition: Home with Home Health Anticipated Discharge Date: 01/29/19 Discharge Date: Expected LOS: 7 Initial Reviewer: [id number] Initial Review Date: 01/20/2019 Generated: 01/28/19 6:03 pm Comments DCP- Discharge Planning Updated by [id number]: Parviz Delgado on 01/28/19 4:[address] Patient Name: NIKKO SKELTON Encounter No: [id number] : 1955 Primary Insurance: MEDICARE A & B Anticipated DC Date: 01-29-2019 Planned Disposition: Home with Home Health External Planned Provider: [facility] DCP follow-up note: [facility] Discharge Planning Comments: CM MET WITH PT IN ROOM TO DISCUSS DISCHARGE PLANNING AND NEEDS. PT REPORTS PLAN TO GO HOME WITH HOME HEALTH, [facility] RESUME. PT'S SPOUSE TO CLOTH TEARER FOR TRANSPORT HOME TOMORROW. CM DISCUSSED AVAILABILITY OF HOME HEALTH, REHAB SERVICES AND MEDICAL EQUIPMENT.PT DENIES FURTHER NEEDS OTHER THAN TO GO HOME WITH HOME HEALTH RESUMPTION. CM PROVIDED PT WITH INFORMATION TO CONTACT "[employer]" TO ORDER AND PAY FOR HER CLEANING MACHINE FOR THE TRILOGY MACHINE. PT PROVIDED WITH HOME HEALTH LISTING, SIGNED CHOICE FOR [facility]. IMPORTANT MESSAGE FROM MEDICARE PROVIDED. CM SPOKE TO VANI OF [facility] REPORTS [facility] WILL ACCEPT PT BACK FOR HOME HEALTH RESUMPTION. FOR DISCHARGE, NOTIFY [facility], , FAX DISCHARGE INFORMATION TO [facility] AT [phone]. Profiling Machine Set Up Operator Tool: Parviz Delgado DCP- Discharge Planning Updated by [id number]: Parviz Delgado on 01/22/19 3:[address] Patient Name: NIKKO SKELTON Admission Status: ER Accout number: [id number] Admission Date: 01-22-2019 : 1955 Admission Diagnosis: Attending: SUSAN JOHNSON Current LOS: 1 Anticipated DC Date: Planned Disposition: Home with Home Health Primary Insurance: MEDICARE A & B PLANNED EXTERNAL PROVIDER: [facility] Discharge Planning Comments: CM MET WITH PT IN ROOM TO DISCUSS DISCHARGE PLANNING AND NEEDS. PT REPORTS LIVING AT HOME INDEPENDENTLY WITH HER SIGNFICANT OTHER. PT HAS HOME AND PORTABLE OXGYEN, NEBLULIZER, TRILOGY, CANE, WALKER AND ELECTRIC WHEELCHAIR FROM [facility]. PT HAD HOME HEALTH SET UP FROM [facility] WITH [facility] BUT THEY DID NOT ADMIT HER BEFORE SHE GOT SICK AND HAD TO COME BACK TO HOSPITAL. CM DISCUSSED AVAILABILITY OF HOME HEALTH, REHAB SERVICES AND MEDICAL EQUIPMENT. PT REPORTS UNKNOWN DISCHARGE NEEDS AT THIS TIME AND WILL LET CM KNOW WHEN THEY FIND OUT WHAT IS WRONG AND WHEN SHE IS CLOSER TO GETTING OUT OF THE HOSPITAL. PT IS HOPEFUL TO GO HOME WITH HOME HEALTH RESUMPTION BUT IS NOT SURE AT THIS TIME. PT REPORTS HER SIGNIFICANT OTHER WILL PICK HER UP FOR DISCHARGE HOME. PT [facility]S CLEAN[facility] AND WILL PAY FOR IT IF NECESSARY. [facility]. PT HAS HOME HEALTH WITH [facility], IF SHE GOES HOME, WILL NEED NEW HOME HEALTH ORDER AND CHOICE LETTER SIGNED TO COMPLETE ARRANGEMENT. PT IS NOT SURE IS SHE WILL NEED REHAB BEFORE GOING HOME. CM TO FOLLOW AND ASSIST IF NEEDED. Profiling Machine Set Up Operator Tool: Parviz Delgado DCPIA - Discharge Planning Initial Assessment Updated by [id number]: Parviz Delgado on 01/22/19 4:21 pm * Is the patient Alert and Oriented? Yes * How many steps to enter\\exit or inside your home? * PCP DR. ISAAC * Pharmacy [facility] * Preadmission Environment Home with Family * ADLs Independent * Equipment Cane Nebulizer Oxygen Power Chair or Electric Scooter Walker * Other Equipment TRILOGY MACHINE - [facility] AND PORTABLE OXYGEN * List name and contact numbers for known caregivers / representatives who currently or will assist patient after discharge: GUERO AVILA, SIGNIFICANT OTHER, * Verbal permission to speak to the caregivers and representatives has been obtained from the patient. Yes * Community resources currently utilized Home Health * Please name any agencies selected above. [facility], NOT YET ADMITTED AT HOME * Additional services required to return to the preadmission environment? No * Can the patient safely return to the preadmission environment? Yes * Has this patient been hospitalized within the prior 30 days at any hospital? Yes Coverage Notice Reviewer: [id number] Chaya Copeland Notice Issued Date-Time: 01/21/2019 17:03 Notice Type: Medicare Outpatient Observation Notice Notice Delivered To: Patient Relationship to Patient: Manager Harbor Name: Delivery Method: HAND - Hand Delivered Socorro Days: Prior Verbal Notification: Recipient Understood Notice: Yes Recipient Signature: Yes Med Rec Note Co-signed by Attending: Coverage Notice Comment: Reviewer: [id number] Delgado Notice Issued Date-Time: 01/28/2019 16:40 Notice Type: IM Discharge Notice Notice Delivered To: Patient Relationship to Patient: Manager Harbor Name: Delivery Method: HAND - Hand Delivered [place] Days: Prior Verbal Notification: Recipient Understood Notice: Yes Recipient Signature: Yes Med Rec Note Co-signed by Attending: Coverage Notice Comment: Reviewer: [email or web address] Delgado Notice Issued Date-Time: 01/28/2019 16:40 Notice Type: Patient Choice Letter Notice Delivered To: Patient Relationship to Patient: Manager Harbor Name: Delivery Method: HAND - Hand Delivered Socorro Days: Prior Verbal Notification: Recipient Understood Notice: Yes Recipient Signature: Yes Med Rec Note Co-signed by Attending: Coverage Notice Comment: [facility] Last DP export: 01/28/19 3:56 p Patient Name: NIKKO SKELTON Page 12849 at 1703 All edits/amendments must be made on the electronic document DICTATION DATE: 01/28/191701 METAL MOLDER: SWETA 01/28/191701 RPT#: [id number] DC DATE: STATUS: ADM IN [facility] [address] [place] [address] END OF REPORT
--- NOTE | 2019-01-28 19:20 | NUR ---
PT IN SHOWER. PLACED TELEMETRY BACK ON. PT ON 3L O2 HIGH FLOW NC. PT DENIES ANY NEEDS. NO S/S OF DISTRESS. WILL CALL FOR ASSIST WHEN NEEDED. NAME AND DATE PLACED ON BOARD. WILL CPOC
--- NOTE | 2019-01-28 21:04 | NUR ---
NIGHT MEDICATIONS GIVEN. ULTRAM GIVEN REQUESTED. PT HAS NO S/S OF DISTRESS. BEDLOW AND CALL LIGHT INREACH. 3L O2 HIGHFLOW NC. PT WILL CALL FOR ASSIST WHEN NEEDED. WILL CPOC
[2019-01-28 21:27] VITALS: BP 133/62
--- NOTE | 2019-01-28 23:44 | NUR ---
PT ASLEEP. RESP EVEN AND UNLABORED. PT HAS NO S/S OF DISTRESS. 3L O2 HIGH FLOW NC. PT WILL CALL FOR ASSIST WHEN NEEDED. BEDLOW AND CALL LIGHT IN REACH. WILL CPOC
[2019-01-29 00:38] VITALS: BP 133/61
--- NOTE | 2019-01-29 05:04 | NUR ---
MORNING PROTONIX GIVEN. NOURISHMENT OFFERED. PT DENIES ANY NEEDS. 3L HIGH FLOW NC. PT WILL CALL FOR ASSIST WHEN NEEDED. WILL CPOC
[2019-01-29 06:15] VITALS: BP 128/57
[2019-01-29 06:25] LABS: ANION GAP 7.9 mmol/L (8-16); CALCIUM 8.6 mg/dL (8.5-10.1); CARBON DIOXIDE 39.5 mmol/L (21.0-32.0); CREATININE - SERUM 0.9 mg/dL (0.6-1.3); POTASSIUM - SERUM 4.4 mmol/L (3.5-5.1)
[2019-01-29 06:53] LABS: BASOPHILS 0.2 % (0-2); EOSINOPHILS 0.4 % (0-7); HEMATOCRIT 35.6 % (36.0-48.0); HEMOGLOBIN 11.1 g/dL (12-16); IMMATURE GRANULOCYTES 5.6 % (0-5); LYMPHOCYTES 10.5 % (15-50); MCH 29.2 pg (26.0-34.0); MCHC 31.2 g/dL (31.0-37.0); MCV 93.7 fL (80.0-100.0); MEAN PLATELET VOLUME 10.7 fL (7.4-10.4); MONOCYTES 13.8 % (2-11); NEUTROPHILS 69.5 % (40-80); PLATELET COUNT 139 10x3/uL (130-400); RDW 16.1 % (11.5-14.5); WBC 8.3 10x3/uL (4.8-10.8)
[2019-01-29 08:03] VITALS: BP 160/77
--- NOTE | 2019-01-29 09:00 | NUR ---
PT SITTING ON SIDE OF BED EATING BREAKFAST, AM MEDS GIVEN ORDERED. DENIES ANY OTHER NEEDS AT THIS TIME, WILL CONT TO FOLLOW PLAN OF CARE
[2019-01-29 11:50] VITALS: BP 128/59
[2019-01-29] MEDS ORDERED: LASIX20 MG PO (11:51)
[2019-01-29] MEDS ORDERED: PREDNISONE20 MG PO (11:52)
[2019-01-29] MEDS ORDERED: MELATONIN 3 MG1 TAB PO (11:52)
[2019-01-29] MEDS ORDERED: AFRIN NASAL SPR15 ML NASAL (11:54)
[2019-01-29] MEDS ORDERED: K-TAB10 MEQ PO (11:59)
[2019-01-29] MEDS ORDERED: PULMICORT0.25 MG/1 INH (14:14)
--- NOTE | 2019-01-29 14:41 | NUR ---
PIV REMOVED WITH CATHETER TIP INTACT. DISCHARGE INSTRUCTIONS REVIEWED WITH PT AND ALL QUESTIONS ANSWERED. PT ASSISTED TO FRONT OF HOSPITAL VIA WHEELCHAIR. PT LEFT HOSPITAL WITH SON
--- NOTE | 2019-01-29 15:24 | MORECARE ---
CASE MANAGEMENT DISCHARGE SUMMARY PATIENT: NIKKO SKELTON UNIT: [id number] ADM DATE: 01/22/19 AGE: 63 : 51 SEX: F ROOM/BED: D.4105 AUTHOR: REWIN,DOC PHYSICIAN: REFERRING PHYSICIAN: SUSAN JOHNSON MD DATE OF SERVICE: 01/29/19 Discharge Plan Patient Name: NIKKO SKELTON Facility: [facility]:[place] : 1955 Planned Disposition: Home with Home Health Anticipated Discharge Date: 01/29/19 Discharge Date: 01/29/2019 Expected LOS: 7 Initial Reviewer: [id number] Initial Review Date: 01/20/2019 Generated: 01/29/19 4:24 pm Comments DCP- Discharge Planning Updated by [email or web address]: Parviz Delgado on 01/29/19 2:[address] Patient Name: NIKKO SKELTON Encounter No: [id number] : 1955 Primary Insurance: MEDICARE A & B Anticipated DC Date: 01-29-2019 Planned Disposition: Home with Home Health External Planned Provider: [facility] DCP follow-up note: CM RECEIVED DISCHARGE ORDERS, SPOKE TO PT IN ROOM WHO IS IN AGREEMENT WITH DISCHARGE HOME TODAY. PT CALLED [facility] WHO TOLD HER THAT THE CLEANING SYSTEM DOES NOT WORK WITH TRILOGY. CM NOTIFIED LEONEL AT [facility] WHO WILL WORK WITH PT TO FIND A CLEANING SYSTEM FOR THE TRILOGY. CM NOTIFIED JOSSUE OF [facility], , FAXED DISCHARGE INFORMATION TO [facility] AT [phone]. Supervisor Particleboard: Parviz Delgado DCP- Discharge Planning Updated by [email or web address]: Parviz Delgado on 01/28/19 4:[address] Patient Name: NIKKO SKELTON Encounter No: [id number] : 1955 Primary Insurance: MEDICARE A & B Anticipated DC Date: 01-29-2019 Planned Disposition: Home with Home Health External Planned Provider: [facility] DCP follow-up note: [facility] Discharge Planning Comments: CM MET WITH PT IN ROOM TO DISCUSS DISCHARGE PLANNING AND NEEDS. PT REPORTS PLAN TO GO HOME WITH HOME HEALTH, [facility] RESUME. PT'S SPOUSE TO MARKETING ACCOUNT MANAGER FOR TRANSPORT HOME TOMORROW. CM DISCUSSED AVAILABILITY OF HOME HEALTH, REHAB SERVICES AND MEDICAL EQUIPMENT.PT DENIES FURTHER NEEDS OTHER THAN TO GO HOME WITH HOME HEALTH RESUMPTION. CM PROVIDED PT WITH INFORMATION TO CONTACT "[facility] [employer]" TO ORDER AND PAY FOR HER CLEANING MACHINE FOR THE TRILOGY MACHINE. PT PROVIDED WITH HOME HEALTH LISTING, SIGNED CHOICE FOR [facility]. IMPORTANT MESSAGE FROM [employer] PROVIDED. CM SPOKE TO VANI OF [facility] REPORTS [facility] WILL ACCEPT PT BACK FOR HOME HEALTH RESUMPTION. FOR DISCHARGE, NOTIFY [facility], , FAX DISCHARGE INFORMATION TO [facility] AT [phone]. Supervisor Particleboard: Parviz Delgado DCP- Discharge Planning Updated by [id number]: Parviz Delgado on 01/22/19 3:[address] Patient Name: NIKKO SKELTON Admission Status: ER Accout number: [id number] Admission Date: 01-22-2019 : 1955 Admission Diagnosis: Attending: SUSAN JOHNSON Current LOS: 1 Anticipated DC Date: Planned Disposition: Home with Home Health Primary Insurance: MEDICARE A & B PLANNED EXTERNAL PROVIDER: [facility] Discharge Planning Comments: CM MET WITH PT IN ROOM TO DISCUSS DISCHARGE PLANNING AND NEEDS. PT REPORTS LIVING AT HOME INDEPENDENTLY WITH HER SIGNFICANT OTHER. PT HAS HOME AND PORTABLE OXGYEN, NEBLULIZER, TRILOGY, CANE, WALKER AND ELECTRIC WHEELCHAIR FROM [facility]. PT HAD HOME HEALTH SET UP FROM [facility]PAT[facility] WITH [facility] BUT THEY DID NOT ADMIT HER BEFORE SHE GOT SICK AND HAD TO COME BACK TO HOSPITAL. CM DISCUSSED AVAILABILITY OF HOME HEALTH, REHAB SERVICES AND MEDICAL EQUIPMENT. PT REPORTS UNKNOWN DISCHARGE NEEDS AT THIS TIME AND WILL LET CM KNOW WHEN THEY FIND OUT WHAT IS WRONG AND WHEN SHE IS CLOSER TO GETTING OUT OF THE HOSPITAL. PT IS HOPEFUL TO GO HOME WITH HOME HEALTH RESUMPTION BUT IS NOT SURE AT THIS TIME. PT REPORTS HER SIGNIFICANT OTHER WILL PICK HER UP FOR DISCHARGE HOME. PT WANTS CLEANING MACHINE FOR HER TRILOGY FROM [facility] AND WILL PAY FOR IT IF NECESSARY. CM NOTIFIED [facility] OF [facility] WHO WILL FOLLOW UP WITH PT. PT HAS HOME HEALTH WITH [facility], IF SHE GOES HOME, WILL NEED NEW HOME HEALTH ORDER AND CHOICE LETTER SIGNED TO COMPLETE ARRANGEMENT. PT IS NOT SURE IS SHE WILL NEED REHAB BEFORE GOING HOME. CM TO FOLLOW AND ASSIST IF NEEDED. Supervisor Particleboard: Parviz Delgado DCPIA - Discharge Planning Initial Assessment Updated by [email or web address]: Parviz Delgado on 01/22/19 4:21 pm * Is the patient Alert and Oriented? Yes * How many steps to enter\\exit or inside your home? * PCP DR. ISAAC * Pharmacy [facility] * Preadmission Environment Home with Family * ADLs Independent * Equipment Cane Nebulizer Oxygen Power Chair or Electric Scooter Walker * Other Equipment TRILOGY MACHINE - [facility] AND PORTABLE OXYGEN * List name and contact numbers for known caregivers / representatives who currently or will assist patient after discharge: GUERO MARGARITA, SIGNIFICANT OTHER, * Verbal permission to speak to the caregivers and representatives has been obtained from the patient. Yes * Community resources currently utilized Home Health * Please name any agencies selected above. [facility], NOT YET ADMITTED AT HOME * Additional services required to return to the preadmission environment? No * Can the patient safely return to the preadmission environment? Yes * Has this patient been hospitalized within the prior 30 days at any hospital? Yes Coverage Notice Reviewer: [id number] Chaya Copeland Notice Issued Date-Time: 01/21/2019 17:03 Notice Type: Medicare Outpatient Observation Notice Notice Delivered To: Patient Relationship to Patient: Cyber Systems Operations Specialist Name: Delivery Method: HAND - Hand Delivered [place] Days: Prior Verbal Notification: Recipient Understood Notice: Yes Recipient Signature: Yes Med Rec Note Co-signed by Attending: Coverage Notice Comment: Reviewer: [email or web address] Chaya Delgado Notice Issued Date-Time: 01/28/2019 16:40 Notice Type: IM Discharge Notice Notice Delivered To: Patient Relationship to Patient: Cyber Systems Operations Specialist Name: Delivery Method: HAND - Hand Delivered [place] Days: Prior Verbal Notification: Recipient Understood Notice: Yes Recipient Signature: Yes Med Rec Note Co-signed by Attending: Coverage Notice Comment: Reviewer: [email or web address] Chaya Delgado Notice Issued Date-Time: 01/28/2019 16:40 Notice Type: Patient Choice Letter Notice Delivered To: Patient Relationship to Patient: Cyber Systems Operations Specialist Name: Delivery Method: HAND - Hand Delivered [place] Days: Prior Verbal Notification: Recipient Understood Notice: Yes Recipient Signature: Yes Med Rec Note Co-signed by Attending: Coverage Notice Comment: [facility] Last DP export: 01/28/19 4:03 p Patient Name: NIKKO SKELTON Page 34241 at 1524 All edits/amendments must be made on the electronic document DICTATION DATE: 01/29/191522 EMBLEM CUTTER: SWETA 01/29/191522 RPT#: [id number] DC DATE:01/29/19 STATUS: DIS IN [facility] [address] [place] [address] END OF REPORT
== END 2019-01-29 15:22 | disposition home health service (06) | DRG 199 ==
LOC: D.ER 07:55 → D.M2 08:49 → OBSVTIME 08:51 → D.M2 01-22 08:53
PROVIDERS: Family Medicine; Internal Medicine Pulmonary Disease; ADMIT Internal Medicine Nephrology; ATTEND Internal Medicine Nephrology
PROC: 0BD48ZX Extraction of Right Upper Lobe Bronchus, Via Natural or Artificial Opening Endoscopic, Diagnostic (ICD-10-PCS; 2019-01-20)
PROC: 0B9J7ZX Drainage of Left Lower Lung Lobe, Via Natural or Artificial Opening, Diagnostic (ICD-10-PCS; 2019-01-20)
PROC: 0B9F7ZX Drainage of Right Lower Lung Lobe, Via Natural or Artificial Opening, Diagnostic (ICD-10-PCS; 2019-01-20)
PROC: 0BD68ZX Extraction of Right Lower Lobe Bronchus, Via Natural or Artificial Opening Endoscopic, Diagnostic (ICD-10-PCS; principal; 2019-01-20 10:43)
DX: J93.9 Pneumothorax, unspecified (principal); J96.22 Acute and chronic respiratory failure with hypercapnia; J18.9 Pneumonia, unspecified organism; J96.21 Acute and chronic respiratory failure with hypoxia; J44.1 Chronic obstructive pulmonary disease with (acute) exacerbation; N17.9 Acute kidney failure, unspecified; I50.30 Unspecified diastolic (congestive) heart failure; J44.0 Chronic obstructive pulmonary disease with (acute) lower respiratory infection; J84.10 Pulmonary fibrosis, unspecified; M06.9 Rheumatoid arthritis, unspecified; K21.9 Gastro-esophageal reflux disease without esophagitis; K58.9 Irritable bowel syndrome, unspecified; D50.9 Iron deficiency anemia, unspecified; D69.6 Thrombocytopenia, unspecified; T81.82XA Emphysema (subcutaneous) resulting from a procedure, initial encounter; Y83.8 Other surgical procedures as the cause of abnormal reaction of the patient, or of later complication, without mention of misadventure at the time of the procedure; J30.9 Allergic rhinitis, unspecified; M34.1 CR(E)ST syndrome; M35.00 Sjogren syndrome, unspecified; D64.9 Anemia, unspecified; J02.9 Acute pharyngitis, unspecified

== ENCOUNTER → 2019-02-25 09:18 | Outpatient (CLI) | payer MEDICARE, BC ==
[2019-01-21 14:07] VITALS: BMI 34.1
[~2019-02-25 09:18] MED LIST changes: +AFRIN NASAL SPR15 ML NASAL; +FLUTICASONE PRO16 GM NASAL; +K-TAB10 MEQ PO; +MELATONIN 3 MG1 TAB PO; +PREDNISONE20 MG PO
--- NOTE | 2019-02-25 11:22 | NUR ---
PT REFUSED TO DO WALK TEST
== END | disposition home or self-care (01) ==
LOC: D.RT 09:18
PROVIDERS: ATTEND Internal Medicine Pulmonary Disease
DX: J44.9 Chronic obstructive pulmonary disease, unspecified (principal)

== ENCOUNTER → 2019-03-24 11:02 | Outpatient (CLI) | payer MEDICARE, BC ==
[2019-01-21 14:07] VITALS: BMI 34.1
== END | disposition home or self-care (01) ==
LOC: D.MRI 11:02
PROVIDERS: ATTEND Family Medicine
DX: M54.32 Sciatica, left side (principal)

== ENCOUNTER 2019-04-24 07:34 | Inpatient (IN) | payer MEDICARE, BC ==
[2019-04-24] VITALS (18 sets, daily range): BP systolic 72–115; BP diastolic 46–86; Ht 165.1 cm; Wt 103.6 kg
[~2019-04-24] VITALS: Ht 165.1 cm; Wt 103.6 kg
[2019-04-24] MEDS ORDERED: ACTEMRA SQ (07:54)
[2019-04-24 08:47] LABS: BASOPHILS 0.2 % (0-2); EOSINOPHILS 2.9 % (0-7); HEMATOCRIT 33.4 % (36.0-48.0); HEMOGLOBIN 10.9 g/dL (12-16); IMMATURE GRANULOCYTES 0.8 % (0-5); LYMPHOCYTES 18.6 % (15-50); MCH 32.6 pg (26.0-34.0); MCHC 32.6 g/dL (31.0-37.0); MEAN PLATELET VOLUME 10.8 fL (7.4-10.4); MONOCYTES 11.5 % (2-11); RBC 3.34 10x6/uL (4.00-5.40); RDW 19.6 % (11.5-14.5); WBC 9.5 10x3/uL (4.8-10.8)
[2019-04-24 08:49] LABS: ALBUMIN 3.2 g/dL (3.4-5.0); ALKALINE PHOSPHATASE 59 U/L (46-116); ALT (SGPT) 87 U/L (10-68); BILIRUBIN - TOTAL 0.62 mg/dL (0.2-1.3); CALC OSMOLALITY 284 mosm/kg (275-300); CALCIUM 8.4 mg/dL (8.5-10.1); CARBON DIOXIDE 35.5 mmol/L (21.0-32.0); CHLORIDE - SERUM 99 mmol/L (98-107); CREATININE - SERUM 3.7 mg/dL (0.6-1.3); POTASSIUM - SERUM 5.4 mmol/L (3.5-5.1); PROTEIN - SERUM 5.3 g/dL (6.4-8.2); SODIUM 137 mmol/L (136-145); UREA NITROGEN 42 mg/dL (7-18); eGFR NON AFRICAN AMERICAN 13 mL/min (90-120)
[2019-04-24 08:50] LABS: GLUCOSE 91 mg/dL (74-106)
[2019-04-24 08:52] LABS: PLATELET COUNT 185 10x3/uL (130-400)
--- NOTE | 2019-04-24 08:54 | NUR ---
INFORMED DR SHIPMAN OF BP. NO CHANGES
[2019-04-24 08:59] LABS: CREATINE KINASE 120 UL (21-215); LIPASE 117 U/L (73-393); MAGNESIUM - SERUM 2.2 mg/dL (1.8-2.4); PRO BNP 533 pg/mL (0-125); TROPONIN-I < 0.017 ng/mL (0.000-0.060)
--- NOTE | 2019-04-24 09:01 | NUR ---
RCVD TC FROM LAB. LACTATE= 2.2. DR SHIPMAN NOTIFIED
[2019-04-24 09:05] LABS: APTT 23.4 SECONDS (22.8-39.4); INR 0.99 (0.85-1.17); PROTIME 12.6 SECONDS (11.6-15.0)
--- NOTE | 2019-04-24 09:41 | NUR ---
REPORT CALLED TO MICHELLE SOUZA BY SBAR FORMAT
--- NOTE | 2019-04-24 09:45 | NUR ---
BP RIGHT LEG= 72/54 WITH MAP OF 60. A/OX3. CURRENTLY ON BI PAP
--- NOTE | 2019-04-24 09:50 | NUR ---
TEANSPORTED TO ROOM #2309 VIA STRETCHER WITH O2 @ 3L PNC AND RT CONDITION STABLE
--- NOTE | 2019-04-24 10:00 | NUR ---
PT RECEIVED FROM ER VS STATED HR 108 O2 VIA 3L NC 92% RESP NOTIFIED. BP 73/59. CLARENCE CHRISS AT BEDSIDE GIVEN UDPATE.
--- NOTE | 2019-04-24 10:20 | NUR ---
DR BANERJEE AT BEDSIDE DNR RECEIVED PT STATED SHE DID NOT WANT CHEST COMPRESSIONS AND DID NOT WANT TO BE ON THE VENTILATOR AT BEDSIDE AND IN AGREEANCE
--- NOTE | 2019-04-24 11:20 | NUR ---
DR GUEVARA AT BEDSIDE GIVEN UPDATE NEW ORDERS RECEIVED
--- NOTE | 2019-04-24 13:10 | NUR ---
ADAMS ADM PER ORDER
--- NOTE | 2019-04-24 14:10 | NUR ---
PT TO CT
[2019-04-24 14:56] LABS: APPEARANCE CLEAR (CLEAR); BILIRUBIN NEGATIVE (NEGATIVE); COLOR STRAW (YELLOW); GLUCOSE NEGATIVE (NEGATIVE); KETONE NEGATIVE (NEGATIVE); NITRITE NEGATIVE (NEGATIVE); PROTEIN NEGATIVE (NEGATIVE); SPECIFIC GRAVITY 1.015 (1.005-1.020); UROBILINOGEN NORMAL (NORMAL)
[2019-04-24 15:06] LABS: CREATININE - URINE 153.8 mg/dL (30-125); POTASSIUM - URINE 45.1 MMOL/L (12.0-62.0); PROTEIN - URINE 74.5 mg/dL (0.0-11.9)
--- NOTE | 2019-04-24 15:15 | NUR ---
REASSESSMENT COMPLETE PER FLOW SHEET. VSS. NO NEW CHANGES WILL CONTINUE TO MONITOR
--- NOTE | 2019-04-24 17:20 | NUR ---
family at bedside given update no new changes will continue to monitor
--- NOTE | 2019-04-24 19:00 | NUR ---
REPORT REC'D, PT CARE ASSUMED. ASSESSMENT COMPLETED PER FLOWSHEET. PT ON BIPAP, UNLABORED, AROUSES EASILY WITH VOICES, FOLLOWS COMMANDS. DENIES ANY DISCOMFORT AT THIS TIME. ST ON CM WITH HR AT 102, O2SAT 97% ON 40%. US TECH AT BEDSIDE. CALL LIGHT REACH. REMAINS AT BEDSIDE. CONT TO MONITOR.
--- NOTE | 2019-04-24 21:00 | NUR ---
PT REPOSITIONED FOR COMFORT, PILLOWS IN USE FOR SUPPORT. WENT HOME FOR TONIGHT. WILL CONT TO MONITOR.
--- NOTE | 2019-04-24 22:27 | NUR ---
CAME TO DO PT BREATHING TREATMENT. SHE IS AWAKE WEARING BIPAP 16/, 40%. SHE STILL HAS DENTURES IN. TOOK BIPAP OFF PLACED PT ON 3L NC SATS 95% REMOVED DENTURES AND WASHED HER FACE. PLACED PT ON HER HOME TRILOGY AT HER REQUEST WITH 3L O2 BLED IN. PT SATS ARE NOW 96 AND SHE IS RESTING. WILL CONTINUE TO MONITOR
--- NOTE | 2019-04-24 23:00 | NUR ---
REASSESSMENT COMPLETED PER FLOWSHEETS. PT CHANGED FROM BIPAP ON HOME TRIOLOGY PER RT. NO SIGNS OF DISTRESS NOTED. VSS. CPOC.
[2019-04-25] VITALS (24 sets, daily range): BP systolic 97–166; BP diastolic 55–105
--- NOTE | 2019-04-25 01:00 | NUR ---
PT RESTING QUIETLY WITHOUT DISTRESS. VSS.
--- NOTE | 2019-04-25 02:04 | NUR ---
PT OFF HER HOME TRILOGY AND BACK ON BIPAP 16/05, 40%
--- NOTE | 2019-04-25 03:00 | NUR ---
PT RESTLESS AND ANXIOUS PULLING ON BIPAP, ORIENTED TO PLACE AND SITUATION. ST ON CM. REASSESSMENT COMPLETD PER FLOWSHEETS. REPOSITIONED FOR COMFORT. HOB UP. SIDE RAILS UPX2. WILL CONT TO MONITOR.
[2019-04-25 06:34] LABS: HEMATOCRIT 30.9 % (36.0-48.0); HEMOGLOBIN 10.4 g/dL (12-16); MCH 32.6 pg (26.0-34.0); MCHC 33.7 g/dL (31.0-37.0); MEAN PLATELET VOLUME 10.4 fL (7.4-10.4); PLATELET COUNT 156 10x3/uL (130-400); RBC 3.19 10x6/uL (4.00-5.40); RDW 17.9 % (11.5-14.5); WBC 8.2 10x3/uL (4.8-10.8)
[2019-04-25 06:41] LABS: MCV 96.9 fL (80.0-100.0)
[2019-04-25 07:13] LABS: ALKALINE PHOSPHATASE 53 U/L (46-116); ALT (SGPT) 81 U/L (10-68); CALCIUM 8.1 mg/dL (8.5-10.1); CARBON DIOXIDE 32.7 mmol/L (21.0-32.0); CHLORIDE - SERUM 98 mmol/L (98-107); CREATINE KINASE 89 UL (21-215); MAGNESIUM - SERUM 2.3 mg/dL (1.8-2.4); POTASSIUM - SERUM 5.6 mmol/L (3.5-5.1); SODIUM 136 mmol/L (136-145); TROPONIN-I < 0.017 ng/mL (0.000-0.060); UREA NITROGEN 47 mg/dL (7-18); VANCOMYCIN - RANDOM 8.9 ug/mL (10.0-20.0); VANCOMYCIN - TROUGH 8.9 ug/mL (10.0-20.0); eGFR NON AFRICAN AMERICAN 25 mL/min (90-120)
[2019-04-25 07:14] LABS: CALC OSMOLALITY 286 mosm/kg (275-300); CREATININE - SERUM 2.1 mg/dL (0.6-1.3); GLUCOSE 147 mg/dL (74-106)
[2019-04-25 08:51] LABS: LYMPHOCYTES 14 % (15-50); MONOCYTES 8 % (2-11); NEUTROPHILS 74 % (40-80)
[2019-04-25 08:52] LABS: ANISOCYTOSIS OCC; PLATELET ESTIMATE NORMAL
--- NOTE | 2019-04-25 09:06 | NUR ---
Nutrition follow-up: Pt remains NPO due to severe breathing issues; O2 in place Humsband states pt seems very confused this morning; nurse notified Wt: 232# Recommend starting ProcalAmine PPN @ 75 ml/hr due to NPO and unsafe for TF due to BIPAP. RDN following.
--- NOTE | 2019-04-25 09:25 | NUR ---
0700 ASSESSMENT COMPLETE AWAKE ALERT COORPERATIVE WITH CARE AND FOLLOWS INSTRUCTIONS IV OF 1/2 NS AT 75 ML/HR INFUSING TO RIGHT FOREARM SALINE LOCK TO LEFT AC BOTH SITES SATISFACTORY REMAINS ON AT 4L/NC
--- NOTE | 2019-04-25 09:32 | NUR ---
0900 VOICES NO COMPLAINTS AT THIS TIME SPOUSE AT BEDSIDE
--- NOTE | 2019-04-25 09:33 | NUR ---
0930 C/O ADAMS LEAKING IRRIGATED ADAMS WITH NS 10ML WITH LIGHT YELLOW URINE IN RETURN.
[2019-04-25 11:10] LABS: OSMOLALITY - URINE 352 (())
--- NOTE | 2019-04-25 13:44 | NUR ---
1100 SPOUSE AT BEDSIDE EMOTIONAL SUPPORT GIVEN DR BANERJEE ROUNDING ON PATIENT
--- NOTE | 2019-04-25 13:45 | NUR ---
1300 ASKING TO PPUT TRIALOGY BACK ON TO HELP HER SLEEP. MARÍA, RT, APPROVED
[2019-04-25] MEDS ORDERED: FUROSEMIDE20 MG PO (14:49)
[2019-04-25] MEDS ORDERED: PREDNISONE5 MG (14:49)
[2019-04-25] MEDS ORDERED: NEXIUM40 MG PO (14:50)
[2019-04-25] MEDS ORDERED: PEPCID40 MG (14:50)
[2019-04-25] MEDS ORDERED: ZANAFLEX4 MG PO (14:50)
[2019-04-25] MEDS ORDERED: CELEXA20 MG (14:51)
--- NOTE | 2019-04-25 18:46 | NUR ---
1700 YELLING OUT AT BOYFRIEND CALMED PT AND SUGGESTED FRIEND LEAVE WHILE I GAVE HER A BATH. PT CALMED DOWN
--- NOTE | 2019-04-25 18:47 | NUR ---
1800 CHG BATH COMPLETE PATIENT WENT TO SLEEP AFTER PLACING WARM SHEET AND BLANKET ON HER
--- NOTE | 2019-04-25 19:10 | NUR ---
PT YELLING OUT WHILE RECEIVING REPORT INTO ASSESS SHE IS ATTEMPTING TO GET OOB AND HAS PULLED ALL LINES ECG B/P AND O2 SAT OFF O2 NC STILL IN PLACE AT THIS TIME. REORIENTED AND ASSESSMENT COMPLETE PLACED BACK ON MONITOR AND BED ALARM TURNED ON SIDE RAILS UP BED LOW POSITION
--- NOTE | 2019-04-25 19:48 | MORECARE ---
CASE MANAGEMENT DISCHARGE SUMMARY PATIENT: NIKKO SKELTON UNIT: [id number] ADM DATE: 04/24/19 AGE: 64 : 53 SEX: F ROOM/BED: D.2309 AUTHOR: AVE HOOD PHYSICIAN: REFERRING PHYSICIAN: YOLANDE ISAAC MD DATE OF SERVICE: 04/25/19 Discharge Plan Patient Name: NIKKO SKELTON Facility: [facility]:[place] : 1955 Planned Disposition: Home with Home Health Anticipated Discharge Date: Discharge Date: Expected LOS: Initial Reviewer: [email or web address] Initial Review Date: 04/25/2019 Generated: 04/25/19 8:48 pm Patient Name: NIKKO SKELTON Page 31392 at 1948 All edits/amendments must be made on the electronic document DICTATION DATE: 04/25/191947 CHEF UNDER: SWETA 04/25/191947 RPT#: [id number] DC DATE: STATUS: ADM IN [facility] [address] [place] [address] END OF REPORT
--- NOTE | 2019-04-25 19:55 | MORECARE ---
CASE MANAGEMENT DISCHARGE SUMMARY PATIENT: NIKKO SKELTON UNIT: [id number] ADM DATE: 04/24/19 AGE: 64 : 51 SEX: F ROOM/BED: D.2309 AUTHOR: ERWIN,DOC PHYSICIAN: REFERRING PHYSICIAN: YOLANDE ISAAC MD DATE OF SERVICE: 04/25/19 Discharge Plan Patient Name: NIKKO SKELTON Facility: [facility]:[place] : 1955 Planned Disposition: Home with Home Health Anticipated Discharge Date: Discharge Date: Expected LOS: Initial Reviewer: [email or web address] Initial Review Date: 04/25/2019 Generated: 04/25/19 8:55 pm Comments DCP- Discharge Planning Updated by [email or web address]: Shobha Burnham on 04/25/19 6:[address] Patient Name: NIKKO SKELTON Admission Status: ER Accout number: [id number] Admission Date: 04-24-2019 : 1955 Admission Diagnosis:ACUTE AND CHRONIC RESPIRATORY FAILURE WITH HYPERCAPNIA Attending: YOLANDE WOOD Current LOS: 1 Anticipated DC Date: Planned Disposition: Home with Home Health Primary Insurance: MEDICARE A & B Discharge Planning Comments: CM met with patient to complete initial dc planning assessment. CM educated patient on the CM role and verbal consent given by patient to complete assessment. Patient lives at home with her significant other Parker where she is independent with her care. At discharge patient plans to return home and feels this is a safe discharge. CM discussed availability of home health, rehab services, and medical equipment. Parker will be her waste collection driver home. Patient has a nebulizer home o2, and trilogy ([facility]). Patient denied known discharge needs at this time. CM will continue to follow and will assist as needed with dc plans/needs. Superintendent Car Construction: Shobha Burnham DCPIA - Discharge Planning Initial Assessment Updated by [email or web address]: Shobha Burnham on 04/25/19 7:49 pm * Is the patient Alert and Oriented? Yes * How many steps to enter\exit or inside your home? * PCP Nate * Pharmacy [facility] * Preadmission Environment Home with Family * ADLs Independent * Other Equipment triology, home 02, portable 02, nebulizer, walker, w/c, s/c, bsc * List name and contact numbers for known caregivers / representatives who currently or will assist patient after discharge: Parker Locke - significant other -[phone] * Verbal permission to speak to the caregivers and representatives has been obtained from the patient. Yes * Community resources currently utilized Home Health * Please name any agencies selected above. [facility] * Additional services required to return to the preadmission environment? No * Can the patient safely return to the preadmission environment? Yes * Has this patient been hospitalized within the prior 30 days at any hospital? No Last DP export: 04/25/19 6:48 p Patient Name: NIKKO SKELTON Page 18629 at 1957 All edits/amendments must be made on the electronic document DICTATION DATE: 04/25/191953 PET CARE TECHNICIAN: SWETA 04/25/191953 RPT#: [id number] [place] DATE: STATUS: ADM IN [facility] [address] [place] [address] END OF REPORT
--- NOTE | 2019-04-25 20:45 | NUR ---
PTS SIG OTHER ON UNIT SPEAKING TO NURSE CONCERNED ABOUT PT BEING AGGRESSIVE SHE IS NOT NORMALLY MEAN SPIRITED HE IS CONCERNED NOT GETTING SLEEP AND STATED SHE CAN TAKE PROMETHAZINE
--- NOTE | 2019-04-25 21:30 | NUR ---
DR ISAAC ON UNIT INFORMED OF PT NOT SLEEPING AND CONCERNS FROM HER SIGNIFICANT OTHER HE STATED SHE CAN TAKE PROMETHAZINE WHICH CAN HELP WITH SLEEP. DR ISAAC INFORMED OF PT STATUS DIFFERENT THEN NORM PER SIG OTHER THAT SHE IS NORMALLY NOT AGGRESSIVE OR MEAN BUT HAS BEEN TODAY. DR ISAAC STATED OK TO GIVE PROMETHAZINE
--- NOTE | 2019-04-25 23:00 | NUR ---
REASSESSMENT MADE PT AGGRESSIVE AT TIMES VERBALLY.
[2019-04-26] VITALS (24 sets, daily range): BP systolic 119–155; BP diastolic 70–100
--- NOTE | 2019-04-26 02:30 | NUR ---
PT BED ALARM SOUNDING IN PT HAS HAD MODERATE SIZE BM COMPLETE BATH LINEN CHANGE CHG BATH
--- NOTE | 2019-04-26 03:00 | NUR ---
REASSESSMENT COMPLETE PT RESTING EYES CLOSED BIPAP CONTNIUE CPOC VSS AT THIS TIME NO DISTRESS NOTED
[2019-04-26 07:19] LABS: ANION GAP 13.1 mmol/L (8-16); CALCIUM 8.9 mg/dL (8.5-10.1); CARBON DIOXIDE 30.2 mmol/L (21.0-32.0); CREATININE - SERUM 1.7 mg/dL (0.6-1.3); POTASSIUM - SERUM 5.3 mmol/L (3.5-5.1); VANCOMYCIN - RANDOM 14.3 ug/mL (10.0-20.0)
[2019-04-26 09:04] LABS: BASOPHILS 0 % (0-2); EOSINOPHILS 0 % (0-7); HEMOGLOBIN 10.9 g/dL (12-16); IMMATURE GRANULOCYTES 1.8 % (0-5); LYMPHOCYTES 6.2 % (15-50); MCH 32.3 pg (26.0-34.0); MCV 97.9 fL (80.0-100.0); MEAN PLATELET VOLUME 10.8 fL (7.4-10.4); PLATELET COUNT 141 10x3/uL (130-400); RBC 3.37 10x6/uL (4.00-5.40); RDW 17.9 % (11.5-14.5); WBC 9.3 10x3/uL (4.8-10.8)
--- NOTE | 2019-04-26 09:11 | NUR ---
DR. BANERJEE HERE UP DATE GIVEN.
--- NOTE | 2019-04-26 10:30 | NUR ---
ON BEDPAN, MOD. SIZE FORMED DARK BROWN STOOL. PERICARE DONE. LINEN CHANGED. PATIENT TURNING SELF FROM SIDE. DENIES PAIN.
--- NOTE | 2019-04-26 12:00 | NUR ---
REGULAR DIET SERVED. ATE FEW BITES. PO FLUIDS TAKEN WITHOUT DIFFICULTY.
--- NOTE | 2019-04-26 13:28 | NUR ---
NAPPING AT INTERVALS NO DISTRESS. FAMILY AT BEDSIDE.
--- NOTE | 2019-04-26 15:00 | NUR ---
ON BEDPAN, LARGE SOFT BROWN STOOL NOTED. PERICARE DONE. TURNING SELF FROM SIDE TO SIDE. NO SKIN BREAKDOWN NOTED. ADAMS CATH PATENT. NAPPING MOST OF DAY.
--- NOTE | 2019-04-26 16:47 | NUR ---
FAMILY AT BEDSIDE QUESTIONS ANSWERED. PATIENT NAPPING NO DISTRESS
--- NOTE | 2019-04-26 18:24 | NUR ---
RESTING COMFORTABLY ADDITIONAL HELPED WITH RESTLESSNESS. AT BEDSIDE
--- NOTE | 2019-04-26 19:00 | NUR ---
REPORT RECEIVED. INITIAL ASSESSMENT COMPLETE. PT LYING IN BED WITH HOB ELEVATED SR UP TIMES 3 FOR BED MOBILITY AND SAFETY. PLACED BED ALARM ON AND BED IN LOW POSITION. PT ON BIPAP AT 40% O2 SAT 97%. BREATH SOUNDS DIMINISHED BUT RELATIVELY CLEAR. ORIENTED TO PERSON AND PLACE NOT TIME AND SITUATION FOLLOWS COMMANDS. CM READING ST NO ECTOPY. PT DENIES PAIN VSS WILL CONTINUE TO MONITOR. LEFT PIV INFILTRATED WITH CATH INTACT. WILL ATTEMPT PIV.
--- NOTE | 2019-04-26 20:30 | NUR ---
PIV TO RIGHT FOREARM 20 GUAGE X 3 ATTEMPTS.
--- NOTE | 2019-04-26 20:30 | NUR ---
JOSÉ LUIS PTS SIGNIFICANT OTHER AT BEDSIDE FOR VISITATION
--- NOTE | 2019-04-26 20:45 | NUR ---
RESPONDING TO BIPAP ALARMING. PTS SIG OTHER JOSÉ LUIS REQUESTING PT TO GET MEDICATIONS SHE HAS PULLED TUBING FROM BIPAP COUPLE TIMES AND IS FIDGETING. INFORMED PHYSICIANS STARTED HER ROUTINE HOME MEDICATIONS DUE AT .
--- NOTE | 2019-04-26 21:45 | NUR ---
DR ISAAC ON UNIT INQUIRED ON HOW TO GET INFORMATION ON THE MORPHINE PAIN PUMP AND DOSING. DR ISAAC AT BEDSIDE TO SEE BUT PT WAS SLEEPING AND SINCE PT HAS NOT BEEN SLEEPING WELL DIDNT WAKE. SHE STATED WOULD NEED TO GET THE PAIN PUMP DETAILS FROM PAIN MANAGEMENT
--- NOTE | 2019-04-26 22:30 | NUR ---
PTS BED ALARM SOUNDING INTO ROOM PT ATTEMPTING TO GET LEGS OVER SIDE OF BED AND STATING SHE IS GOING HOME. SHE HAS SPIT HER UPPER DENTURES OUT AND THEY ARE IN MASK OF BIPAP. TAKEN OUT ORAL CARE PROVIDED AND PLACED UPPER DENTURES IN DENTURE CUP WITH PT LABEL ON BEDSIDE TABLE. SHE REFUSED TO REMOVE LOWER DENTURES. REORIENTED PT AND INFORMED HER SHE WAS STILL IN ICU AND NOT WELL ENOUGH TO GO HOME
--- NOTE | 2019-04-26 23:00 | NUR ---
REASSESSMENT COMPLETE SEE ASSESSMENTS. PT WANTING IRVIN ONE OF THE NIGHT SUPERVISORS WHO IS A VERY CLOSE FRIEND TO COME TAKE HER HOME OR JOSÉ LUIS TO COME TAKE HER HOME. INFORMED PT THAT IRVIN WAS NOT WORKING TONIGHT AND REORIENTED TO SITUATION AND PLACE. PT HEART RATE UP TO 120'S WITH ANY ANXIETY OR AGITATION WHEN AT REST SHE IS NSR RATE IN 90'S TO LOW 100'S. INFORMED PT THAT JOSÉ LUIS WOULD BE BACK TOMORROW AND THEY COULD DISCUSS WITH HER PHYSICIANS ABOUT HER DISCHARGE.
--- NOTE | 2019-04-26 23:10 | NUR ---
IRVIN PTS CLOSE FRIEND CALLED TO CHECK ON PT INFORMED HER OF PT WANTING HER OR JOSÉ LUIS TO COME GET HER OUT OF HERE AND TAKE HER HOME. PT NOT AGITATED LAST EDUCATION MANAGER BUT HAS HAD COUPLE OUTBURSTS BUT REDIRECTED REORIENTES RELATIVELY EASY. WENT INTO ROOM TO INFORM THAT IRVIN HAD CALLED AND CHECKED ON HER SHE WAS ALREADY BACK ASLEEP. VSS CPOC
[2019-04-27] VITALS (24 sets, daily range): BP systolic 114–176; BP diastolic 69–106
--- NOTE | 2019-04-27 01:00 | NUR ---
PT RESTING QUIETLY WITH EYES CLOSED VSS CPOC
--- NOTE | 2019-04-27 03:45 | NUR ---
RADIOLOGY ON UNIT FOR AM CHEST FILMS. PT RESTING BETTER THEN SHE HAS LAST COUPLE NIGHTS ASKED IF THEY COULD COME BACK LATER IN AM PT RESTING AND WHEN WOKEN UP EASILY AGITATED WITH HEART RATE UP TO 120'S. RESTING RIGHT NOW SHE IS NSR AT 91. WILL CALL RADIOLOGY WHEN READY FOR CHEST FILM
--- NOTE | 2019-04-27 05:00 | NUR ---
CHECKED ON PT STILL RESTING VSS CPOC
--- NOTE | 2019-04-27 06:00 | NUR ---
ANSWERED PTS CALL LIGHT. SHE IS ALERT ORIENTED FOCUSED AND IS APOLOGETIC FOR HER BEHAVIORS SHE SAID "OH MY I NEEDED SLEEP" INFORMED HER THAT JOSÉ LUIS AND IRVIN HAVE BOTH BEEN WORRIED HER CELL PHONE IS ON TABLE. GIVEN HER PHONE AND SHE CALLED HER SIG OTHER JOSÉ LUIS AND FRIEND IRVIN AND WAS CLEAR ORIENTED.
--- NOTE | 2019-04-27 06:10 | NUR ---
CALLED RADIOLOGY SINCE PT NOW AWAKE REQUESTED FOR CHEST FILM.
--- NOTE | 2019-04-27 06:35 | NUR ---
RADIOLOGY HERE PT PLEASANT
[2019-04-27 06:40] LABS: BASOPHILS 0.1 % (0-2); EOSINOPHILS 0 % (0-7); LYMPHOCYTES 3.6 % (15-50); MCH 32.4 pg (26.0-34.0); MCHC 33.3 g/dL (31.0-37.0); MCV 97.1 fL (80.0-100.0); MEAN PLATELET VOLUME 9.9 fL (7.4-10.4); MONOCYTES 6.7 % (2-11); NEUTROPHILS 87.6 % (40-80); PLATELET COUNT 130 10x3/uL (130-400); RDW 17.5 % (11.5-14.5); WBC 10.4 10x3/uL (4.8-10.8)
[2019-04-27 07:02] LABS: ANION GAP 12.2 mmol/L (8-16); CALCIUM 8.9 mg/dL (8.5-10.1); CARBON DIOXIDE 30.5 mmol/L (21.0-32.0); CREATININE - SERUM 1.4 mg/dL (0.6-1.3); POTASSIUM - SERUM 4.7 mmol/L (3.5-5.1); VANCOMYCIN - RANDOM 18.9 ug/mL (10.0-20.0)
--- NOTE | 2019-04-27 07:30 | NUR ---
TALKS TO STAFF, HAVE TO ASK HER TO OPEN EYES. ALERT ANSWERS QUESTIONS APPRIOPIATELY. THEN MANIPULATIVE THERAPY SPECIALIST LIGHT Q 10-5 MIN. ASKING WHAT TIME IT IS, QUESTIONS THAT ARE INAPPRIOATE. STATING MY IV IS LEAKING AND INDICATING THE WRONG ARM. IV WAS NOT LEAKING. MONITOR SR. IV RIGHT FOREARM WITHOUT REDNESS OR SWELLING INFUSINGW ITH 1/2NS AT 10 ML HOUR. ADAMS CATH PATENT. SKIN WARM AND DRY. ATE A COUPLE BITES OF SYKES FOR BREAKFAST. GUERO BOYFRIEND IS HERE. STATES PATIENT DOES STILL HAVE ALITTLE CONFUSION BUT IS MUCH BETTER TODAY.
--- NOTE | 2019-04-27 09:00 | NUR ---
PO MEDS TAKEN WITHOUT DIFFICULTY. WANTING TO SLEEP COMPLETE HIBCLENS BATH GIVEN WITH LINEN CHANGE NO SKIN BREAKDOWN NOTED NO REDNESS. DOES BECOME SHORT OF BREATH WITH CHANGING POSITION IN THE BED. POORLY TOLERATES HEAD OF BED DOWN TO PULL UP IN BED.
--- NOTE | 2019-04-27 10:12 | NUR ---
RESTING COMFORTABLY. NO DISTRESS.
--- NOTE | 2019-04-27 11:30 | NUR ---
LUNCH TRAY SERVED ATE HALF. ALERT TEXTING ON PHONE. ANSWERING EMAILS. NO DISTRESS AT THIS TIME
--- NOTE | 2019-04-27 13:08 | NUR ---
NO DISTRESS. VISITING WITH VISITORS
--- NOTE | 2019-04-27 15:00 | NUR ---
REPOSITIONS SELF.FROM SIDE TO SIDE. IV PATENT. NAPPING AT INTERVALS NO DISTRESS
--- NOTE | 2019-04-27 16:30 | NUR ---
DINNER TRAY SERVED ATE FAIR. POOR APPETIET NO DISTRESS
--- NOTE | 2019-04-27 18:00 | NUR ---
ON HOME TRILOGY NO DISTRESS. RESTING COMFORTABLY
--- NOTE | 2019-04-27 19:16 | NUR ---
BEDSIDE SHIFT REPORT GIVEN BY DEPARTING RN. PT LAYING IN BED WATCHING TV. VSS. AAOX4. PERRLA. C/O GENERALIZED PAIN OF 10/10 ON PAIN SCALE. RT FA PIV INFUSING MD ORDERED MEDS. F/C DRAINING TO GRAVITY. SAFETY MEASURES IN PLACE. CBIR. ASSESSMENT COMPLETE. SEE FS FOR DETAILS.
--- NOTE | 2019-04-27 20:22 | NUR ---
HS MEDS GIVEN. SWALLOWED ALL PO MEDS WITHOUT DIFFICULTY. TOLERATED WELL.
--- NOTE | 2019-04-27 23:51 | NUR ---
REASSESSMENT COMPLETE. NO NEW CHANGES NOTED IN PT CONDITION. ASLEEP SHOWING NO SS OF DISTRESS.
[2019-04-28] VITALS (12 sets, daily range): BP systolic 129–173; BP diastolic 76–103
--- NOTE | 2019-04-28 00:07 | NUR ---
ALERTED NURSE USING CALL VENTURA. PULLED UP IN BED PER PT REQUEST.
--- NOTE | 2019-04-28 01:41 | NUR ---
ALSEEP SHOWING NO SS OF DISTRESS. VSS. REPOSITIONS SELF. DENIES ANY NEEDS AT THIS TIME.
[2019-04-28 05:15] LABS: ALBUMIN 2.9 g/dL (3.4-5.0); ANION GAP 5.1 mmol/L (8-16); BILIRUBIN - TOTAL 0.52 mg/dL (0.2-1.3); CALCIUM 8.9 mg/dL (8.5-10.1); CARBON DIOXIDE 33.3 mmol/L (21.0-32.0); CREATININE - SERUM 1.4 mg/dL (0.6-1.3); POTASSIUM - SERUM 4.4 mmol/L (3.5-5.1); PROTEIN - SERUM 4.9 g/dL (6.4-8.2); VANCOMYCIN - RANDOM 21.7 ug/mL (10.0-20.0)
[2019-04-28 05:40] LABS: HEMATOCRIT 30.6 % (36.0-48.0); HEMOGLOBIN 10.1 g/dL (12-16); MCH 32.5 pg (26.0-34.0); MCV 98.4 fL (80.0-100.0); MEAN PLATELET VOLUME 10.8 fL (7.4-10.4); PLATELET COUNT 130 10x3/uL (130-400); RBC 3.11 10x6/uL (4.00-5.40); RDW 17.6 % (11.5-14.5); WBC 8.4 10x3/uL (4.8-10.8)
--- NOTE | 2019-04-28 07:15 | NUR ---
REPORT RECEIVED. PT RESTING QUIETLY IN THE BED. ADMITTED FOR SOB. PT IS CURRENTLY FINISHING UP BREATHING TREATMENT. PT WEARS O2 AT 3L DURING THE DAY AND DOES HER HOME TRILOGY DURING THE NIGHT. SHE IS ALERT AND ORIENTED. SHE HAS AN IV IN HER RIGHT FOREARM WITH 1/2NS INFUSING AT KVO. SHE HAS A ADAMS CATHETER. PT HAS A CONTINUOUS PAIN PUMP TO HER LEFT HIP WITH MORPHINE INFUSING AT 4.9. DOCTORS AWARE. SHE GETS SCHEDULED MS CONTIN. PT HAS A HISTORY OF AN AMPUTATED MIDDLE FINGER. SHE HAS HAD BOTH HIPS AND BOTH SHOULDERS REPLACED. VSS. PT IS CURRENTLY RUNNING A LITTLE TACHYCARDIC WITH A RATE OF 105. WILL MONITOR. NO OTHER NEEDS AT THIS TIME.
[2019-04-28 08:49] LABS: LYMPHOCYTES 6 % (15-50); MONOCYTES 14 % (2-11); NEUTROPHILS 78 % (40-80); PLATELET ESTIMATE NORMAL
[2019-04-28 08:50] LABS: ANISOCYTOSIS 1+; POLYCHROMASIA OCC
--- NOTE | 2019-04-28 09:00 | NUR ---
DR SILVA ROUNDED ON PT. STATED THAT SHE COULD BE TRANSFERRED OUT TO THE FLOOR. AWARE THAT BP AND HR ARE ELEVATED.
--- NOTE | 2019-04-28 10:37 | NUR ---
NUTRITION F/U PT DID NOT EAT MUCH BREAKFAST. DOES REPORT GOOD INTAKE MOST MEALS. WILL CONTINUE TO PROVIDE DIET, MONITOR PO INTAKE. RD FOLLOWING
--- NOTE | 2019-04-28 12:38 | NUR ---
REPORT CALLED TO MICHELLE ESPINOZA, ON [employer] GOING TO RM 2168.
--- NOTE | 2019-04-28 13:21 | NUR ---
PATIENT ADMITTED TO ROOM 2233. ALERT AND ORIENTED. SOB. O2 @ 3L NC. LUNGS DIMINISHED BILATERALLY. HEART SOUNDS S1 AND S2 HEARD IN ALL ROCHA. BOWEL SOUNDS ACTIVE X 4. SKIN INTACT WITHOUT REDNESS. DENIES PAIN. DENIES NEEDS. REFUSED BED ALARM REFUSAL FORM SIGNED AND IN CHART. BED LOW. CALL VENTURA AND PERSONAL ITEMS IN REACH. WILL CONTINUE TO MONITOR.
--- NOTE | 2019-04-28 14:26 | NUR ---
EDUCATION PROVIDED ON NEED FOR SPUTUM SAMPLE. COLLECTION TUBE IN ROOM. VERBALIZED UNDERSTANDING.
--- NOTE | 2019-04-28 17:28 | NUR ---
RESTING IN BED. AT BEDSIDE. DENIES PAIN. DENIES NEEDS. BED LOW. CALL VENTURA AND PERSONAL ITEMS IN REACH. WILL CONTINUE TO MONITOR.
--- NOTE | 2019-04-28 20:00 | NUR ---
ALERT RESTING IN BED, RESP UNLABORED O2 IN USE, NO APPARENT DISTRESS, CALL LIGHT IN REACH SEE SHIFT ASSESSMENT
[2019-04-29 01:11] VITALS: BP 129/79
[2019-04-29 05:21] LABS: ALBUMIN 3.2 g/dL (3.4-5.0); ANION GAP 10.1 mmol/L (8-16); BILIRUBIN - TOTAL 0.46 mg/dL (0.2-1.3); CALCIUM 8.9 mg/dL (8.5-10.1); CARBON DIOXIDE 31.4 mmol/L (21.0-32.0); CREATININE - SERUM 1.2 mg/dL (0.6-1.3); POTASSIUM - SERUM 4.5 mmol/L (3.5-5.1); PROTEIN - SERUM 5.2 g/dL (6.4-8.2); VANCOMYCIN - RANDOM 12.1 ug/mL (10.0-20.0)
[2019-04-29 05:23] LABS: BASOPHILS 0.3 % (0-2); EOSINOPHILS 0 % (0-7); HEMATOCRIT 34.3 % (36.0-48.0); HEMOGLOBIN 11.2 g/dL (12-16); IMMATURE GRANULOCYTES 4.6 % (0-5); LYMPHOCYTES 3.5 % (15-50); MCH 32.7 pg (26.0-34.0); MCHC 32.7 g/dL (31.0-37.0); MCV 100.3 fL (80.0-100.0); MEAN PLATELET VOLUME 10.8 fL (7.4-10.4); MONOCYTES 7.6 % (2-11); PLATELET COUNT 132 10x3/uL (130-400); RBC 3.42 10x6/uL (4.00-5.40); RDW 17.5 % (11.5-14.5)
[2019-04-29 05:24] LABS: WBC 11.6 10x3/uL (4.8-10.8)
[2019-04-29 06:23] VITALS: BP 151/91
--- NOTE | 2019-04-29 07:10 | NUR ---
ALERT AND ORIENTED. NO C/O PAIN. NO S/S OF ACUTE DISTRESS NOTED. ON 3L O2, SHIRA. ANGIE PRESENT. IV TO RIGHT FOREARM, 1/2 NS INFUSING @ 20ML/HR. SITE PATENT WITHOUT REDNESS OR SWELLING. PT DENIES ANY NEEDS AT THIS TIME. CALL LIGHT IN REACH. WILL CONTINUE TO MONITOR.
[2019-04-29 08:56] VITALS: BP 148/85
[2019-04-29 12:03] VITALS: BP 142/73
[2019-04-29 16:36] VITALS: BP 133/82
--- NOTE | 2019-04-29 18:37 | NUR ---
RESTING IN BED, ALERT AND ORIENTED. NO C/O PAIN. NO S/S OF ACUTE DISTRESS NOTED. PT DENIES ANY NEEDS. CALL LIGHT IN REACH. WILL CONTINUE TO MONITOR.
--- NOTE | 2019-04-29 20:00 | NUR ---
ALERT RESTING IN BED NO C/O OR REQUEST, REPORTS GOOD DAY, WALKED TO BR WITH PT, SEE SHIFT ASSESSMENT, CALL LIGHT IN REACH
[2019-04-29 22:12] VITALS: BP 143/76
[2019-04-30 01:00] VITALS: BP 138/60
[2019-04-30 06:35] VITALS: BP 151/74
[2019-04-30 06:43] LABS: HEMATOCRIT 34.2 % (36.0-48.0); HEMOGLOBIN 11.2 g/dL (12-16); MCH 32.6 pg (26.0-34.0); MCHC 32.7 g/dL (31.0-37.0); MCV 99.4 fL (80.0-100.0); PLATELET COUNT 146 10x3/uL (130-400); RBC 3.44 10x6/uL (4.00-5.40); RDW 17.7 % (11.5-14.5); WBC 14.5 10x3/uL (4.8-10.8)
[2019-04-30 07:06] LABS: ALBUMIN 3.1 g/dL (3.4-5.0); BILIRUBIN - TOTAL 0.48 mg/dL (0.2-1.3); CREATININE - SERUM 1.1 mg/dL (0.6-1.3); PROTEIN - SERUM 5.3 g/dL (6.4-8.2); VANCOMYCIN - RANDOM 17.7 ug/mL (10.0-20.0)
--- NOTE | 2019-04-30 07:58 | NUR ---
PT RESTING IN BED. NO SIGNS OF DISTRESS. IV TO RIGHT FORARM PATENT NO REDNESS OR TENDERNESS. ON 3L NC. ON TELEMETRY [address] DENIES ANY FUTHER NEED AT THIS TIME. CALL LIGHT IN REACH. BED LOW POSITION. NO FAMILY AT BEDSIDE AT THIS TIME.
[2019-04-30 09:02] LABS: CRENATED CELLS OCC; LYMPHOCYTES 8 % (15-50); MONOCYTES 9 % (2-11); NEUTROPHILS 75 % (40-80); PLATELET ESTIMATE NORMAL; POIKILOCYTOSIS OCC
[2019-04-30 09:11] VITALS: BP 148/76
[2019-04-30 12:25] VITALS: BP 111/66
--- NOTE | 2019-04-30 14:09 | NUR ---
PT PLACED ON TRILOGY
[2019-04-30 16:40] VITALS: BP 113/59
--- NOTE | 2019-04-30 18:59 | NUR ---
I have reviewed this patient and I concur with the Shift Assessment completed by the Licensed Practical Nurse today this shift.
[2019-04-30 22:05] VITALS: BP 118/76
--- NOTE | 2019-05-01 00:38 | NUR ---
REC'D. AT [facility]. OF SHIFT.IN BED HOB UP.02 3L NC.DENIES OR OBSERVING ANY DIFFICULTY STATES SOB MOSTLY ON MINIMAL ACTIVITY.DENIES ANY OTHER COMPLAINTS WILL CONTINUE TO MONITOR FOR ANY CHGES IN RESP STATUS AND FOLLOW CURRENT PLAN OF CARE
[2019-05-01 01:22] VITALS: BP 90/62
--- NOTE | 2019-05-01 05:14 | NUR ---
RESTING QUITELY IN BED NO APPARENT DISTRESS, CALL LIGHT IN REACH
[2019-05-01 05:49] VITALS: BP 166/82
[2019-05-01 06:19] LABS: BASOPHILS 0.3 % (0-2); EOSINOPHILS 0.4 % (0-7); HEMATOCRIT 36.3 % (36.0-48.0); HEMOGLOBIN 11.9 g/dL (12-16); IMMATURE GRANULOCYTES 8.5 % (0-5); LYMPHOCYTES 8.9 % (15-50); MCH 32.4 pg (26.0-34.0); MCHC 32.8 g/dL (31.0-37.0); MCV 98.9 fL (80.0-100.0); MEAN PLATELET VOLUME 10.6 fL (7.4-10.4); MONOCYTES 7.3 % (2-11); NEUTROPHILS 74.6 % (40-80); PLATELET COUNT 147 10x3/uL (130-400); RBC 3.67 10x6/uL (4.00-5.40); RDW 17.6 % (11.5-14.5); WBC 11.9 10x3/uL (4.8-10.8)
[2019-05-01 06:52] LABS: ALBUMIN 3.2 g/dL (3.4-5.0); ANION GAP 11.5 mmol/L (8-16); BILIRUBIN - TOTAL 0.6 mg/dL (0.2-1.3); CALCIUM 8.9 mg/dL (8.5-10.1); CARBON DIOXIDE 30.5 mmol/L (21.0-32.0); PROTEIN - SERUM 5.2 g/dL (6.4-8.2)
--- NOTE | 2019-05-01 07:10 | NUR ---
ALERT AND ORIENTED, RESTING IN BED. NO C/O PAIN. NO S/S OF ACUTE DISTRESS NOTED. EXPIRATORY WHEEZED ASCULTATED BILATERAL LUNGS. ON 3L O2, NC. UP WITH ASSISTANCE. LOVENOX FOR DVT PROPHALAXIS. IV TO RIGHT FOREARM, 1/2 NS INFUSING @ 20ML/HR. SITE PATENT WITHOUT REDNESS OR SWELLING. MORPHINE PUMP TO RIGHT HIP. ON TELEMETRY SR 67. PT DENIES ANY NEEDS AT THIS TIME. CALL LIGHT IN REACH. WILL CONTINUE TO MONITOR.
[2019-05-01 08:46] LABS: APPEARANCE CLEAR (CLEAR); BILIRUBIN NEGATIVE (NEGATIVE); COLOR YELLOW (YELLOW); GLUCOSE 50 mg/dL (NEGATIVE); KETONE MODERATE mg/dL (NEGATIVE); NITRITE NEGATIVE (NEGATIVE); PROTEIN NEGATIVE (NEGATIVE); SPECIFIC GRAVITY 1.015 (1.005-1.020)
[2019-05-01 08:47] LABS: BACTERIA FEW /hpf (NONE SEEN); EPITHELIAL CELLS 0-5 /hpf (0-5); HYALINE CAST OCC /lpf (NONE SEEN); MUCUS <1+ /lpf (NONE SEEN); WHITE CELLS - URINE OCC /hpf (0-5)
[2019-05-01 08:59] VITALS: BP 138/75
[2019-05-01 13:25] VITALS: BP 132/68
[2019-05-01 17:45] VITALS: BP 139/73
--- NOTE | 2019-05-01 18:57 | NUR ---
PT ALERT AND ORIENTED. NO C/O PAIN. NO S/S OF ACUTE DISTRESS. PT DENIES ANY NEEDS. CALL LIGHT IN REACH. WILL CONTINUE TO MONITOR.
[2019-05-01 21:10] VITALS: BP 141/83
[2019-05-02 00:37] VITALS: BP 112/61
[2019-05-02 04:39] LABS: BASOPHILS 0.3 % (0-2); EOSINOPHILS 0.5 % (0-7); HEMOGLOBIN 11.7 g/dL (12-16); IMMATURE GRANULOCYTES 7.1 % (0-5); LYMPHOCYTES 7.9 % (15-50); MCH 32.8 pg (26.0-34.0); MCHC 33.4 g/dL (31.0-37.0); MEAN PLATELET VOLUME 10.3 fL (7.4-10.4); MONOCYTES 8.4 % (2-11); NEUTROPHILS 75.8 % (40-80); PLATELET COUNT 144 10x3/uL (130-400); RBC 3.57 10x6/uL (4.00-5.40); RDW 17.3 % (11.5-14.5); WBC 10.8 10x3/uL (4.8-10.8)
[2019-05-02 04:53] LABS: ANION GAP 8.5 mmol/L (8-16); BILIRUBIN - TOTAL 0.5 mg/dL (0.2-1.3); CALCIUM 8.7 mg/dL (8.5-10.1); CREATININE - SERUM 1.2 mg/dL (0.6-1.3); POTASSIUM - SERUM 3.5 mmol/L (3.5-5.1); PROTEIN - SERUM 5.2 g/dL (6.4-8.2)
[2019-05-02 05:49] VITALS: BP 137/67
[2019-05-02 08:40] VITALS: BP 132/69
--- NOTE | 2019-05-02 12:00 | NUR ---
ADAMS CATH DC AT THIS TIME.NO C/O NOTED OR VOICED. C/L IN REACH.
[2019-05-02 13:04] VITALS: BP 133/75
--- NOTE | 2019-05-02 14:00 | NUR ---
PT VOID AT THIS TIME ASSISTED TO BR VIA STAFF. C/L IN REACH AT BEDSIDE.
--- NOTE | 2019-05-02 15:41 | NUR ---
I have reviewed this patient and I concur with the Shift Assessment completed by the Licensed Practical Nurse today this shift.
[2019-05-02 17:20] VITALS: BP 132/80
[2019-05-02 19:52] VITALS: BP 106/76
[2019-05-03 04:21] VITALS: BP 111/76
[2019-05-03 05:54] LABS: ANION GAP 12.2 mmol/L (8-16); CALCIUM 8.5 mg/dL (8.5-10.1); CARBON DIOXIDE 29.9 mmol/L (21.0-32.0); POTASSIUM - SERUM 3.1 mmol/L (3.5-5.1)
[2019-05-03 06:07] LABS: BASOPHILS 0.2 % (0-2); EOSINOPHILS 0.8 % (0-7); HEMATOCRIT 33.2 % (36.0-48.0); HEMOGLOBIN 11.1 g/dL (12-16); LYMPHOCYTES 9.2 % (15-50); MCH 32.5 pg (26.0-34.0); MCHC 33.4 g/dL (31.0-37.0); MCV 97.1 fL (80.0-100.0); MEAN PLATELET VOLUME 10.8 fL (7.4-10.4); MONOCYTES 8.9 % (2-11); NEUTROPHILS 72.9 % (40-80); PLATELET COUNT 151 10x3/uL (130-400); RBC 3.42 10x6/uL (4.00-5.40); RDW 17.2 % (11.5-14.5); WBC 9.5 10x3/uL (4.8-10.8)
--- NOTE | 2019-05-03 09:00 | NUR ---
PT AAOX4 RESP EVEN AND NONLABORED NO SIGNS OF DISTRESS NOTED, NO NEEDS EXPRESSED CL IN REACH WILL CONTINUE TO MONITOR
[2019-05-03 10:07] VITALS: BP 148/76
[2019-05-03] MEDS ORDERED: LASIX20 MG PO (10:53)
[2019-05-03] MEDS ORDERED: VELTASSA8.4 GM PO (10:54)
[2019-05-03] MEDS ORDERED: PREDNISONE10 MG PO (10:55)
[2019-05-03 13:28] VITALS: BP 160/76
[2019-05-03 18:01] VITALS: BP 120/59
--- NOTE | 2019-05-03 18:51 | NUR ---
I have reviewed this patient and I concur with the Shift Assessment completed by the Licensed Practical Nurse today this shift.
--- NOTE | 2019-05-03 19:35 | NUR ---
RCV`D PT. PT RESTING IN BED WITH EYES OPEN WATCHING TV. BREATHING EVEN AND UNLABORED, WHEEZING NOTED. ALERT AND ORIENTED AND DENIES NEEDS AT THIS TIME. IV LOCATED TO RIGHT FOREARM RUNNING 1/2 NS. WILL CONTINUE TO MONITOR. BED LOW, CALL LIHGT IN REACH, RAILS UP X 2.
[2019-05-03 19:45] VITALS: BP 116/63
--- NOTE | 2019-05-03 20:54 | NUR ---
PT RESTING IN BED WATCHING TV, NO SIGNS OF DISTRESS. GAVE SCHEDULED MEDS, INCLUDING MS CONTIN PER S ORDERS, REPORTS PAIN 03/10. DENIES ANY FURTHER NEEDS.
[2019-05-04 01:33] VITALS: BP 120/55
[2019-05-04 05:26] VITALS: BP 134/70
--- NOTE | 2019-05-04 08:00 | NUR ---
ASSESSMENT PER FLOW SHEET. PT IS WITHOUT DISTRESS.CALL LIGHT IN REACH. MONITOR FOR NEEDS
[2019-05-04 09:29] VITALS: BP 124/66
--- NOTE | 2019-05-04 15:22 | NUR ---
DISCHARGE INSTRUCTIONS,STATES UNDERSTANDING. HERE TO PICK [facility] FOR TRANSPORT HOME.
--- NOTE | 2019-05-04 15:46 | NUR ---
LEFT UNIT VIA WHEELCHAIR FOR TRANSPORT HOME
--- NOTE | 2019-05-05 08:43 | MORECARE ---
CASE MANAGEMENT DISCHARGE SUMMARY PATIENT: NIKKO SKELTON UNIT: [id number] ADM DATE: 04/24/19 AGE: 64 : 53 SEX: F ROOM/BED: D.2234 AUTHOR: ERWIN,DOC PHYSICIAN: REFERRING PHYSICIAN: YOLANDE ISAAC MD DATE OF SERVICE: 05/05/19 Discharge Plan Patient Name: NIKKO SKELTON Facility: [facility]:[place] : 1955 Planned Disposition: Home with Home Health Anticipated Discharge Date: Discharge Date: 05/04/2019 Expected LOS: Initial Reviewer: [email or web address] Initial Review Date: 04/25/2019 Generated: 05/05/19 9:43 am DCP- Discharge Planning Updated by [email or web address]: Shobha Burnham on 04/25/19 6:[address] Patient Name: NIKKO SKELTON Admission Status: ER Accout number: [id number] Admission Date: 04-24-2019 : 1955 Admission Diagnosis:ACUTE AND CHRONIC RESPIRATORY FAILURE WITH HYPERCAPNIA Attending: YOLANDE WOOD Current LOS: 1 Anticipated DC Date: Planned Disposition: Home with Home Health Primary Insurance: MEDICARE A & B Discharge Planning Comments: CM met with patient to complete initial dc planning assessment. CM educated patient on the CM role and verbal consent given by patient to complete assessment. Patient lives at home with her significant other Parker where she is independent with her care. At discharge patient plans to return home and feels this is a safe discharge. CM discussed availability of home health, rehab services, and medical equipment. 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 Patient has a nebulizer home o2, and trilogy ([facility]). Patient denied known discharge needs at this time. CM will continue to follow and will assist as needed with dc plans/needs. Product Marketing Intern: Shobha Burnham DCPIA - Discharge Planning Initial Assessment Updated by [email or web address]: Shobha Burnham on 04/25/19 7:49 pm * Is the patient Alert and Oriented? Yes * How many steps to enter\exit or inside your home? * PCP Nate * Pharmacy [facility] * Preadmission Environment Home with Family * ADLs Independent * Other Equipment triology, home 02, portable 02, nebulizer, walker, w/c, s/c, bsc * List name and contact numbers for known caregivers / representatives who currently or will assist patient after discharge: Parker Locke - significant other -[phone] * Verbal permission to speak to the caregivers and representatives has been obtained from the patient. Yes * Community resources currently utilized Home Health * Please name any agencies selected above. [facility] * Additional services required to return to the preadmission environment? No * Can the patient safely return to the preadmission environment? Yes * Has this patient been hospitalized within the prior 30 days at any hospital? No External Providers External Provider: [facility] Next Contact Date: Service Request Date: Service Type: Resolution: Reviewer: Comments: Coverage Notice Reviewer: [email or web address] Chaya Oliver Notice Issued Date-Time: 05/03/2019 11:45 Notice Type: IM Discharge Notice Notice Delivered To: Patient Relationship to Patient: Self Development Team Lead Name: Delivery Method: HAND - Hand Delivered [place] Days: Prior Verbal Notification: Recipient Understood Notice: Yes Recipient Signature: Yes Med Rec Note Co-signed by Attending: Coverage Notice Comment: Last DP export: 04/25/19 6:55 p Patient Name: NIKKO SKELTON Page [id number] at 0843 All edits/amendments must be made on the electronic document DICTATION DATE: 05/05/19842 PLATE COLORER: SWETA 05/05/1945 RPT#: [id number] DC DATE:05/04/19 STATUS: DIS IN [facility] [address] [place] [address] END OF REPORT
--- NOTE | 2019-05-06 06:46 | MORECARE ---
CASE MANAGEMENT DISCHARGE SUMMARY PATIENT: NIKKO SKELTON UNIT: [id number] ADM DATE: 04/24/19 AGE: 64 : 53 SEX: F ROOM/BED: D.2234 AUTHOR: ERWIN,DOC PHYSICIAN: REFERRING PHYSICIAN: YOLANDE ISAAC MD DATE OF SERVICE: 05/06/19 Discharge Plan Patient Name: NIKKO SKELTON Facility: [facility]:[place] : 1955 Planned Disposition: Home with Home Health Anticipated Discharge Date: Discharge Date: 05/04/2019 Expected LOS: 0 Initial Reviewer: [email or web address] Initial Review Date: 04/25/2019 Generated: 05/06/19 7:46 am DCP- Discharge Planning Updated by [email or web address]: Shobha Burnham on 04/25/19 6:[address] Patient Name: NIKKO SKELTON Admission Status: ER Accout number: [id number] Admission Date: 04-24-2019 : 1955 Admission Diagnosis:ACUTE AND CHRONIC RESPIRATORY FAILURE WITH HYPERCAPNIA Attending: YOLANDE WOOD Current LOS: 1 Anticipated DC Date: Planned Disposition: Home with Home Health Primary Insurance: MEDICARE A & B Discharge Planning Comments: CM met with patient to complete initial dc planning assessment. CM educated patient on the CM role and verbal consent given by patient to complete assessment. Patient lives at home with her significant other Parker where she is independent with her care. At discharge patient plans to return home and feels this is a safe discharge. CM discussed availability of home health, rehab services, and medical equipment. 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 Patient has a nebulizer home o2, and trilogy ([facility]). Patient denied known discharge needs at this time. CM will continue to follow and will assist as needed with dc plans/needs. Chef Manager: Shobha Burnham DCPIA - Discharge Planning Initial Assessment Updated by [email or web address]: Shobha Burnham on 04/25/19 7:49 pm * Is the patient Alert and Oriented? Yes * How many steps to enter\exit or inside your home? * PCP Nate * Pharmacy [facility] * Preadmission Environment Home with Family * ADLs Independent * Other Equipment triology, home 02, portable 02, nebulizer, walker, w/c, s/c, bsc * List name and contact numbers for known caregivers / representatives who currently or will assist patient after discharge: Parker Locke - ibeth crespo -[phone] * Verbal permission to speak to the caregivers and representatives has been obtained from the patient. Yes * Community resources currently utilized Home Health * Please name any agencies selected above. [facility] * Additional services required to return to the preadmission environment? No * Can the patient safely return to the preadmission environment? Yes * Has this patient been hospitalized within the prior 30 days at any hospital? No Coverage Notice Reviewer: [email or web address] Chaya Oliver Notice Issued Date-Time: 05/03/2019 11:45 Notice Type: IM Discharge Notice Notice Delivered To: Patient Relationship to Patient: Self Driver Salesman Name: Delivery Method: HAND - Hand Delivered [place] Days: Prior Verbal Notification: Recipient Understood Notice: Yes Recipient Signature: Yes Med Rec Note Co-signed by Attending: Coverage Notice Comment: Last DP export: 05/05/19 7:43 am Patient Name: NIKKO SKELTON Page 68262 at 0646 All edits/amendments must be made on the electronic document DICTATION DATE: 05/06/19645 DIE MECHANIC: SWETA 05/06/19645 RPT#: [id number] DC DATE:05/04/19 STATUS: DIS IN [facility] [address] [place] [address] END OF REPORT
== END 2019-05-04 15:46 | disposition home health service (06) | DRG 193 ==
LOC: D.ER 07:34 → D.MS 09:01 → D.ICU 09:01 → D.MS 04-28 13:10
PROVIDERS: Emergency Medicine; Family Medicine; Internal Medicine Pulmonary Disease; ADMIT Family Medicine; ATTEND Family Medicine
DX: J18.9 Pneumonia, unspecified organism (principal); J96.21 Acute and chronic respiratory failure with hypoxia; N17.0 Acute kidney failure with tubular necrosis; J96.22 Acute and chronic respiratory failure with hypercapnia; E87.2 Acidosis; G93.1 Anoxic brain damage, not elsewhere classified; J44.1 Chronic obstructive pulmonary disease with (acute) exacerbation; I95.9 Hypotension, unspecified; Z66 Do not resuscitate; M06.9 Rheumatoid arthritis, unspecified; K21.9 Gastro-esophageal reflux disease without esophagitis; F41.8 Other specified anxiety disorders; M79.7 Fibromyalgia; E87.5 Hyperkalemia; K58.9 Irritable bowel syndrome, unspecified; J30.9 Allergic rhinitis, unspecified; M34.9 Systemic sclerosis, unspecified; J84.10 Pulmonary fibrosis, unspecified; F15.982 Other stimulant use, unspecified with stimulant-induced sleep disorder; G25.3 Myoclonus

== ENCOUNTER 2019-06-05 19:31 | Inpatient (IN) | payer MEDICARE, BC ==
[~2019-06-05] VITALS: Ht 165.1 cm; Wt 96.5 kg
[~2019-06-05 19:31] MED LIST changes: +ACTEMRA SQ; +CELEXA20 MG; +FUROSEMIDE20 MG PO; +NEXIUM40 MG PO; +PEPCID40 MG; +PREDNISONE10 MG PO; +PREDNISONE5 MG; +VELTASSA8.4 GM PO; +ZANAFLEX4 MG PO
--- NOTE | 2019-06-05 19:45 | NUR ---
UNABLE TO DO SUICIDE SCREENING RISK AT THIS TIME PT TOO LETHARGIC
[2019-06-05 19:57] LABS: BASOPHILS 0.1 % (0-2); EOSINOPHILS 0.6 % (0-7); HEMATOCRIT 38.1 % (36.0-48.0); HEMOGLOBIN 11.9 g/dL (12-16); IMMATURE GRANULOCYTES 0.7 % (0-5); LYMPHOCYTES 13.1 % (15-50); MCH 32.8 pg (26.0-34.0); MCHC 31.2 g/dL (31.0-37.0); MEAN PLATELET VOLUME 10.9 fL (7.4-10.4); NEUTROPHILS 80.5 % (40-80); PLATELET COUNT 200 10x3/uL (130-400); RBC 3.63 10x6/uL (4.00-5.40); WBC 16.9 10x3/uL (4.8-10.8)
[2019-06-05 20:00] VITALS: BP 131/69
[2019-06-05 20:06] LABS: APTT 20.3 SECONDS (22.8-39.4); INR 0.95 (0.85-1.17); PROTIME 12.2 SECONDS (11.6-15.0)
--- NOTE | 2019-06-05 20:12 | NUR ---
PT TO RADIOLOGY.
[2019-06-05 20:23] LABS: ALBUMIN 3.3 g/dL (3.4-5.0); ALKALINE PHOSPHATASE 64 U/L (46-116); ALT (SGPT) 58 U/L (10-68); BILIRUBIN - TOTAL 0.51 mg/dL (0.2-1.3); CALC OSMOLALITY 298 mosm/kg (275-300); CALCIUM 9.2 mg/dL (8.5-10.1); CHLORIDE - SERUM 99 mmol/L (98-107); CKMB 3.9 U/L (0.0-3.6); CREATINE KINASE 191 UL (21-215); GLUCOSE 103 mg/dL (74-106); MAGNESIUM - SERUM 2.7 mg/dL (1.8-2.4); POTASSIUM - SERUM 5.8 mmol/L (3.5-5.1); PROTEIN - SERUM 5.4 g/dL (6.4-8.2); SODIUM 143 mmol/L (136-145); THYROID STIMULATING HORMONE 1.49 uIU/mL (0.36-3.74); UREA NITROGEN 51 mg/dL (7-18); eGFR NON AFRICAN AMERICAN 9 mL/min (90-120)
[2019-06-05 20:24] LABS: APPEARANCE HAZY (CLEAR); BILIRUBIN NEGATIVE (NEGATIVE); COLOR DK YELLOW (YELLOW); GLUCOSE NEGATIVE (NEGATIVE); KETONE NEGATIVE (NEGATIVE); NITRITE NEGATIVE (NEGATIVE); PROTEIN 1+ mg/dL (NEGATIVE); UROBILINOGEN NORMAL (NORMAL)
[2019-06-05 20:26] LABS: BACTERIA FEW /hpf (NONE SEEN); RED CELLS - URINE OCC /hpf (0-5); TALC POWDER CRYSTALS 0-5 /hpf (NONE SEEN); WHITE CELLS - URINE OCC /hpf (0-5); YEAST >1+ /hpf (NONE SEEN)
[2019-06-05 20:31] LABS: CARBON DIOXIDE 42.9 mmol/L (21.0-32.0)
--- NOTE | 2019-06-05 20:37 | NUR ---
PT RETURNED FROM RADIOLOGY.
[2019-06-05 21:00] VITALS: BP 94/50
[2019-06-05 22:00] VITALS: BP 105/49
[2019-06-05 23:00] VITALS: BP 104/48
[2019-06-06] VITALS (24 sets, daily range): BP systolic 93–165; BP diastolic 51–89; Ht 165.1 cm; Wt 96.5 kg
--- NOTE | 2019-06-06 00:30 | NUR ---
PATIENT ARRIVES ON UNIT VIA STRETCHER ACCOMPANIED BY STAFF AND SPOUSE. BIPAP ON 50% - PT OPENS EYES TO STIMULI - VSS CPOC
--- NOTE | 2019-06-06 01:45 | NUR ---
SPOKE WITH ANDREA IN THE ER - ISMAEL HAS ALREADY BEEN NOTIFIED OF THIS PATIENT - NEPHROLOGY PAGED
[2019-06-06 03:08] LABS: BASOPHILS 0.1 % (0-2); EOSINOPHILS 0.4 % (0-7); HEMATOCRIT 32.9 % (36.0-48.0); HEMOGLOBIN 10.1 g/dL (12-16); IMMATURE GRANULOCYTES 0.7 % (0-5); LYMPHOCYTES 2.8 % (15-50); MCH 32.5 pg (26.0-34.0); MCHC 30.7 g/dL (31.0-37.0); MCV 105.8 fL (80.0-100.0); MEAN PLATELET VOLUME 10.6 fL (7.4-10.4); MONOCYTES 1.1 % (2-11); NEUTROPHILS 94.9 % (40-80); RBC 3.11 10x6/uL (4.00-5.40); RDW 16.8 % (11.5-14.5); WBC 15.6 10x3/uL (4.8-10.8)
[2019-06-06 03:09] LABS: PLATELET COUNT 151 10x3/uL (130-400)
[2019-06-06 03:38] LABS: ALKALINE PHOSPHATASE 52 U/L (46-116); ALT (SGPT) 50 U/L (10-68); BILIRUBIN - TOTAL 0.46 mg/dL (0.2-1.3); CALC OSMOLALITY 304 mosm/kg (275-300); CARBON DIOXIDE 35.7 mmol/L (21.0-32.0); CHLORIDE - SERUM 109 mmol/L (98-107); CKMB 8.9 U/L (0.0-3.6); CREATININE - SERUM 2.6 mg/dL (0.6-1.3); GLUCOSE 106 mg/dL (74-106); MAGNESIUM - SERUM 1.7 mg/dL (1.8-2.4); PHOSPHOROUS 4.7 mg/dL (2.5-4.9); POTASSIUM - SERUM 4.9 mmol/L (3.5-5.1); SODIUM 148 mmol/L (136-145); UREA NITROGEN 42 mg/dL (7-18); eGFR NON AFRICAN AMERICAN 19 mL/min (90-120)
[2019-06-06 03:39] LABS: ALBUMIN 2.4 g/dL (3.4-5.0); CREATINE KINASE 512 UL (21-215)
[2019-06-06 03:40] LABS: CALCIUM 6.4 mg/dL (8.5-10.1); TROPONIN-I 0.141 ng/mL (0.000-0.060)
--- NOTE | 2019-06-06 04:56 | NUR ---
RASHID GUEVARA AT THIS TIME FOR CRITICAL LAB RESULT
--- NOTE | 2019-06-06 05:06 | NUR ---
DR GUEVARA RETURNED CALL - RESPIRATORY GIVEN BIPAP CHANGE ORDERS AT THIS TIME.
--- NOTE | 2019-06-06 06:26 | NUR ---
UNABLE TO OBTAIN SUICIDE SCREENING AT THIS TIME
--- NOTE | 2019-06-06 13:08 | NUR ---
0700 ASSESSMENT COMPLETE NEURO ASSESSMENT COMPLETE REMAINS ON BPAP 80/20 02 AT 40% 02 SAT BETWEEN 98% TO 100%
--- NOTE | 2019-06-06 13:10 | NUR ---
0900 SPOUSE AT BEDSIDE EMOTIONAL SUPPORT PROVIDED REPOSITIONED WITH PILLOWS PLACED FOR COMFORT DR GUEVARA ROUNDING AND UPDATING FAMILY MEMBER
--- NOTE | 2019-06-06 13:13 | NUR ---
1100 SWITCHED BP CUFF TO LEFT ARM FLUSHED AND RETAPED RIGHT AC IV SITE WRAPPED IN KERLEX
--- NOTE | 2019-06-06 13:15 | NUR ---
1300 PATIENT BECAME AGGRESSIIVE TRYING TO TAKE OFF BPAP AND DIGGING HER FINGERNAILS INTO RN ARM CALMED PATIENT DOWN AND CLOSED BLINDS AND LIGHTS OFF TO AID IN PATIENT GETTING SOME REST
--- NOTE | 2019-06-06 17:14 | MORECARE ---
CASE MANAGEMENT DISCHARGE SUMMARY PATIENT: NIKKO SKELTON UNIT: [id number] ADM DATE: 06/05/19 AGE: 64 : 53 SEX: F ROOM/BED: D.2308 AUTHOR: ERWIN,DOC PHYSICIAN: REFERRING PHYSICIAN: PARAM DOWNEY MD DATE OF SERVICE: 06/06/19 Discharge Plan Patient Name: NIKKO SKELTON Facility: [facility]:[place] : 1955 Planned Disposition: Home with Home Health Anticipated Discharge Date: Discharge Date: Expected LOS: Initial Reviewer: [email or web address] Initial Review Date: 06/06/2019 Generated: 06/06/19 6:14 pm Comments DCP- Discharge Planning Updated by [email or web address]: Shobha Burnham on 06/06/19 4:[address] Patient Name: NIKKO SKELTON Admission Status: ER Accout number: [id number] Admission Date: 06-05-2019 : 1955 Admission Diagnosis:ACUTE AND CHRONIC RESPIRATORY FAILURE WITH HYPERCAPNIA Attending: PARAM LIANG Current LOS: 1 Anticipated DC Date: Planned Disposition: Home with Home Health Primary Insurance: MEDICARE A & B Discharge Planning Comments: CM met with patient and patient's significant other Parker to complete initial dc planning assessment. CM educated patient on the CM role and verbal consent given by patient to complete assessment. Patient lives at home with her significant other Parker where she is partially dependent with her care. At discharge patient plans to return home and feels this is a safe discharge. CM discussed availability of home health, rehab services, and medical equipment. Parker will drive her home upon discharge Patient has a nebulizer, home o2 and trilogy ([facility]) Patient has [facility] and plans to resume care with them upon discharge. Patient denied known discharge needs at this time. CM will continue to follow and will assist as needed with dc plans/needs. Career Technical Education Instructor: Shobha Burnham DCPIA - Discharge Planning Initial Assessment Updated by [email or web address]: Shobha Burnham on 06/06/19 5:06 pm * Is the patient Alert and Oriented? No * PCP PONCHO * Pharmacy [facility] * Preadmission Environment Home with Family * ADLs Partial Dependent * Partial ADLs (Assistance needed) Ambulation Bathing Dressing Eating Medication Management Toileting Transfers * Other Equipment TRILOGY, NEBULIZER, HOME/PORTABLE 02, ([facility]) WALKER, W/C, S/C, BSC * List name and contact numbers for known caregivers / representatives who currently or will assist patient after discharge: PARKER AVILA - LIFE PARTNER- [phone] * Verbal permission to speak to the caregivers and representatives has been obtained from the patient. N/A * Community resources currently utilized Home Health * Please name any agencies selected above. [facility] * Additional services required to return to the preadmission environment? No * Can the patient safely return to the preadmission environment? Yes * Has this patient been hospitalized within the prior 30 days at any hospital? No Patient Name: NIKKO SKELTON Page [id number] at 1714 All edits/amendments must be made on the electronic document DICTATION DATE: 06/06/191713 YOUTH SERVICES LIBRARIAN: SWETA 06/06/191713 RPT#: [id number] MO DATE: STATUS: ADM IN [facility] [address] [place] [address] END OF REPORT
--- NOTE | 2019-06-06 19:00 | NUR ---
PATIENT REPOSITIONED, TOLERATED WELL. PATIENT APPEARS SLIGHTLY RESTLESS. SIGNIFICANT OTHER STATED UPON TIME, HE WOULD LIKE PRN PROMETHAZINE GIVEN, STATES HE THINKS IT MIGHT HELP "CALM HER DOWN" VITAL SIGNS STABLE. BED LOWERED/LOCKED. ADAMS POSITIONED BELOW BLADDER, TUBING FREE OF LOOPS. IV INFUSING WITHOUT SIGNS OF INFILTRATION. WILL CONTINUE TO MONITOR.
--- NOTE | 2019-06-06 19:15 | NUR ---
1430 PHENERGAN 25MG IM GIVEN
--- NOTE | 2019-06-06 19:15 | NUR ---
8340 RESTING QUIETLY IN NO DISTRESS FAMILY DID NOT WANT PATIENT AWAKE
--- NOTE | 2019-06-06 21:15 | NUR ---
SIGNIFICANT OTHER AT BEDSIDE. PATIENT RESTLESS, PRN PROMETHAZINE IS NOT HELPING PATIENT SLEEP. VSS. WILL CONTINUE TO MONITOR.
[2019-06-07] VITALS (24 sets, daily range): BP systolic 104–160; BP diastolic 56–94
--- NOTE | 2019-06-07 | NUR ---
PATIENT STILL RESTLESS. VSS. BED LOWERED/LOCKED. IV INFUSING WITHOUT SIGNS OF INFILTRATION. ADAMS SECURED BELOW BLADDER, TUBING FREE OF LOOPS. CALL LIGHT WITHIN REACH. WILL CONTINUE TO MONITOR.
--- NOTE | 2019-06-07 02:49 | NUR ---
PATIENT REPOSITIONED ON RT SIDE. PRN MEDICATION GIVEN. PATIENT DENIES FURTHER NEEDS OR CONCERNS AT THIS TIME. BED LOWERED/LOCKED. CALL LIGHT WITHIN REACH. WILL CONTINUE TO MONITOR.
--- NOTE | 2019-06-07 03:47 | NUR ---
PATIENT FINALLY RESTING. VITAL SIGNS STABLE. IV INFUSING WITHOUT SIGNS OF INFILTRATION. BED LOWERED/LOCKED, CALL LIGHT WITHIN REACH. ADAMS SECURED BELOW BLADDER AND TUBING FREE OF LOOPS. PATIENT IN NO ACUTE DISTRESS. WILL CONTINUE TO MONITOR.
[2019-06-07 04:17] LABS: BASOPHILS 0 % (0-2); EOSINOPHILS 0 % (0-7); HEMATOCRIT 28.2 % (36.0-48.0); HEMOGLOBIN 9.1 g/dL (12-16); IMMATURE GRANULOCYTES 0.9 % (0-5); LYMPHOCYTES 4.7 % (15-50); MCHC 32.3 g/dL (31.0-37.0); MONOCYTES 3.5 % (2-11); NEUTROPHILS 90.9 % (40-80); PLATELET COUNT 145 10x3/uL (130-400); RBC 2.84 10x6/uL (4.00-5.40); RDW 15.2 % (11.5-14.5)
[2019-06-07 04:19] LABS: MCV 99.3 fL (80.0-100.0); WBC 7.6 10x3/uL (4.8-10.8)
[2019-06-07 04:29] LABS: ALBUMIN 2.4 g/dL (3.4-5.0); BILIRUBIN - TOTAL 0.55 mg/dL (0.2-1.3); CALCIUM 7.3 mg/dL (8.5-10.1); CARBON DIOXIDE 31.2 mmol/L (21.0-32.0); PROTEIN - SERUM 4.2 g/dL (6.4-8.2)
[2019-06-07 04:30] LABS: ANION GAP 15.5 mmol/L (8-16); CREATININE - SERUM 1.5 mg/dL (0.6-1.3); MAGNESIUM - SERUM 2.6 mg/dL (1.8-2.4); PHOSPHOROUS 2.9 mg/dL (2.5-4.9); POTASSIUM - SERUM 5.7 mmol/L (3.5-5.1)
--- NOTE | 2019-06-07 06:47 | NUR ---
PATIENT RESTING QUIETLY. VSS. BED LOWERED/LOCKED. CALL LIGHT WITHIN REACH. ADAMS SECURED BELOW BLADDER, TUBING FREE OF LOOPS. IV INFUSING WITHOUT SIGNS OF INFILTRATION. WILL CONTINUE TO MONITOR.
--- NOTE | 2019-06-07 13:15 | NUR ---
0830 PULLING BPAP OFF FIGHTING WITH RN WHEN TRYING TO PLACE BPAP ON RESTRAINTS ORDERED AND PLACED ON PATIENT TO ENABLE PUTTING BPAP ON
--- NOTE | 2019-06-07 13:15 | NUR ---
0700 RESTLESS IN BED ASSESSMENT COMPLETE CONFUSED SPEECH CLEAR
--- NOTE | 2019-06-07 13:18 | NUR ---
0833 PHENERGAN 25MG IM GIVEN
--- NOTE | 2019-06-07 13:18 | NUR ---
0955 FAMILY MEMBER ARRIVE AT BEDSIDE AND REFUSED TO ALLOW PT HAVR A BATH
--- NOTE | 2019-06-07 13:19 | NUR ---
1142 RESTING QUIETLY FAMILY MEMBER LEFT
--- NOTE | 2019-06-07 17:24 | NUR ---
1446 PHENERGAN 25MG IM GIVEN RT PLSACED ON 02 AT 3L/NC MISTI WELL
--- NOTE | 2019-06-07 17:24 | NUR ---
1300 RESTING WITH EYES CLOSED
[2019-06-07 17:45] LABS: CALCIUM 8.4 mg/dL (8.5-10.1); CREATININE - SERUM 1.6 mg/dL (0.6-1.3)
--- NOTE | 2019-06-07 20:00 | NUR ---
SIGNIFICANT OTHER AT BEDSIDE. PATIENT AWAKE, ALERT BUT CONFUSED TO TIME. PATIENT REPOSITIONED. CHAPSTICK AND LOTION GIVEN. IV INFUSING WITHOUT SIGNS OF INFILTRATION. BED LOWERED/LOCKED CALL LIGHT WITHIN REACH. ADAMS PATENT, SECURED BELOW BLADDER AND TUBING FREE OF LOOPS. WILL CONTINUE TO MONITOR.
[2019-06-08] VITALS (16 sets, daily range): BP systolic 133–163; BP diastolic 73–92
--- NOTE | 2019-06-08 00:46 | NUR ---
PATIENT REPOSITIONED. TOLERATED WELL. CALL LIGHT WITHIN REACH. VSS. WILL CONTINUE TO MONITOR.
--- NOTE | 2019-06-08 01:49 | NUR ---
PT REFUSED CHG BATH
[2019-06-08 04:26] LABS: BASOPHILS 0 % (0-2); EOSINOPHILS 0 % (0-7); HEMATOCRIT 30.9 % (36.0-48.0); HEMOGLOBIN 9.8 g/dL (12-16); LYMPHOCYTES 2.3 % (15-50); MCH 32.2 pg (26.0-34.0); MCHC 31.7 g/dL (31.0-37.0); MEAN PLATELET VOLUME 10.9 fL (7.4-10.4); MONOCYTES 4.9 % (2-11); NEUTROPHILS 91.8 % (40-80); PLATELET COUNT 119 10x3/uL (130-400); RBC 3.04 10x6/uL (4.00-5.40); RDW 15.4 % (11.5-14.5); WBC 7.8 10x3/uL (4.8-10.8)
[2019-06-08 04:40] LABS: MCV 101.6 fL (80.0-100.0)
[2019-06-08 05:00] LABS: ALBUMIN 2.9 g/dL (3.4-5.0); ANION GAP 10.8 mmol/L (8-16); BILIRUBIN - TOTAL 0.83 mg/dL (0.2-1.3); CALCIUM 8.7 mg/dL (8.5-10.1); CREATININE - SERUM 1.5 mg/dL (0.6-1.3); MAGNESIUM - SERUM 2.7 mg/dL (1.8-2.4); PHOSPHOROUS 3.6 mg/dL (2.5-4.9); POTASSIUM - SERUM 4.8 mmol/L (3.5-5.1); PROTEIN - SERUM 5.1 g/dL (6.4-8.2)
--- NOTE | 2019-06-08 05:24 | NUR ---
PATIENT RESTING QUIETLY. VSS. WILL CONTINUE TO MONITOR.
--- NOTE | 2019-06-08 07:00 | NUR ---
REC'D PT. AAOX4. PLESANT. O2 @3L NC. NO S/S OF ACUTE DISTRESS. CL IN PLACE.
--- NOTE | 2019-06-08 09:48 | NUR ---
ASSISTED PT WITH CHB BATH. COMPLETE BED CHANGE. UP TO BSC. LARGE DARK BROWN SEMI SOLID BM NOTED. UP TO CHAIR. O2 @4 L NC. AT BEDSIDE. NO S/S OF ACUTE DISTRESS. CL IN PLACE.
--- NOTE | 2019-06-08 11:53 | NUR ---
PT UP IN CHAIR. ATE PEACHES AND CHEERIOS WITH NO ISSUE. NO S.S OF ACUTE DISTRESS. AT BEDSIDE. CL IN PLACE.
--- NOTE | 2019-06-08 15:29 | NUR ---
RECIEVED PATIENT FROM ICU. PT WITH NO COMPLAINTS OF PAIN AT THIS TIME. LEFT TO RUN ERRANDS. BED IN LOW POSITION AND CALL LIGHT IS IN REACH. PATIENT IS RESTING COMFORTABLY IN BED. LUNG SOUNDS ARE CLEAR BUT DIMINISHED. IV TO THE LEFT FOREARM IS PATENT AND INFUSING. BRUISING IS NOTED TO BOTH UPPER EXTREMITIES. EDEMA TO BOTH LOWER EXTREMITIES. PATIENT DENIES ANY ADDITIONAL NEEDS AT THIS MOMENT
--- NOTE | 2019-06-08 15:37 | NUR ---
1430 CALLED REPORT TO VIVIANA. ASSITED PT VIA WC TO 210. O2@3LITERS. CARRIED ALL BELONGINGS. NO S/S OF ACUTE DISTRESS. CL IN PLACE.
--- NOTE | 2019-06-08 19:17 | NUR ---
PT SITTING UP IN BED ALERT AND ORIENTED X4. PT COMPLAINS OF DIFFICULTY GETTING COMFORTABLE IN BED. ADJUSTED PT POSITION. PT DENIES ANY PAIN OR FURTHER NEEDS AT THIS TIME. IRVIN AT BEDSIDE. BED LOW CALL LIGHT WITHIN REACH WILL CONTINUE TO MONITOR.
[2019-06-09 00:01] VITALS: BP 141/73
[2019-06-09 04:00] VITALS: BP 154/84
--- NOTE | 2019-06-09 05:48 | NUR ---
I have reviewed this patient and I concur with the Shift Assessment completed by the Licensed Practical Nurse today this shift.
[2019-06-09 06:02] LABS: ALBUMIN 3.1 g/dL (3.4-5.0); ANION GAP 11.2 mmol/L (8-16); BILIRUBIN - TOTAL 0.75 mg/dL (0.2-1.3); CALCIUM 8.5 mg/dL (8.5-10.1); CARBON DIOXIDE 33.1 mmol/L (21.0-32.0); CREATININE - SERUM 1.4 mg/dL (0.6-1.3); MAGNESIUM - SERUM 2.8 mg/dL (1.8-2.4); PHOSPHOROUS 3.6 mg/dL (2.5-4.9); POTASSIUM - SERUM 4.3 mmol/L (3.5-5.1); PROTEIN - SERUM 5.3 g/dL (6.4-8.2)
[2019-06-09 06:34] LABS: MCH 32.4 pg (26.0-34.0); MCHC 32.2 g/dL (31.0-37.0); MCV 100.5 fL (80.0-100.0); MEAN PLATELET VOLUME 12.2 fL (7.4-10.4); RDW 15.2 % (11.5-14.5); WBC 7.5 10x3/uL (4.8-10.8)
[2019-06-09 06:35] LABS: HEMATOCRIT 38.2 % (36.0-48.0); HEMOGLOBIN 12.3 g/dL (12-16); PLATELET COUNT 73 10x3/uL (130-400)
--- NOTE | 2019-06-09 07:15 | NUR ---
PT RESTING PEACEFULLY, BREATHS EVEN/REGULAR/UNLABORED. NO SIGNS OR SYMTPOMS OF ACUTE DISTRESS NOTED AT THIS TIME. NO FAMILY AT BEDSIDE. CL IN REACH, SRX2.
--- NOTE | 2019-06-09 07:32 | MORECARE ---
CASE MANAGEMENT DISCHARGE SUMMARY PATIENT: NIKKO SKELTON UNIT: [id number] ADM DATE: 06/05/19 AGE: 64 : 51 SEX: F ROOM/BED: D.9068 AUTHOR: ERWIN,DOC PHYSICIAN: REFERRING PHYSICIAN: PARAM DOWNEY MD DATE OF SERVICE: 06/09/19 Discharge Plan Patient Name: NIKKO SKELTON Facility: [facility]:[place] : 1955 Planned Disposition: Home with Home Health Anticipated Discharge Date: Discharge Date: Expected LOS: Initial Reviewer: [email or web address] Initial Review Date: 06/06/2019 Generated: 06/09/19 8:32 am DCP- Discharge Planning Updated by [email or web address]: Shobha Burnham on 06/06/19 4:[address] Patient Name: NIKKO SKELTON Admission Status: ER Accout number: [id number] Admission Date: 06-05-2019 : 1955 Admission Diagnosis:ACUTE AND CHRONIC RESPIRATORY FAILURE WITH HYPERCAPNIA Attending: PARAM LIANG Current LOS: 1 Anticipated DC Date: Planned Disposition: Home with Home Health Primary Insurance: MEDICARE A & B Discharge Planning Comments: CM met with patient and patient's significant other Parker to complete initial dc planning assessment. CM educated patient on the CM role and verbal consent given by patient to complete assessment. Patient lives at home with her significant other Parker where she is partially dependent with her care. At discharge patient plans to return home and feels this is a safe discharge. CM discussed availability of home health, rehab services, and medical equipment. Parker will drive her home upon discharge Patient has a nebulizer, home o2 and trilogy ([facility]) Patient has [facility] and plans to resume care with them upon discharge. Patient denied known discharge needs at this time. CM will continue to follow and will assist as needed with dc plans/needs. Faculty Neuropsychologist: Shobha Burnham DCPIA - Discharge Planning Initial Assessment Updated by [email or web address]: Shobha Burnham on 06/06/19 5:06 pm * Is the patient Alert and Oriented? No * PCP PARCHSERGIO * Pharmacy [facility] * Preadmission Environment Home with Family * ADLs Partial Dependent * Partial ADLs (Assistance needed) Ambulation Bathing Dressing Eating Medication Management Toileting Transfers * Other Equipment TRILOGY, NEBULIZER, HOME/PORTABLE 02, ([facility]) WALKER, W/C, S/C, BSC * List name and contact numbers for known caregivers / representatives who currently or will assist patient after discharge: PARKER AVILA - LIFE PARTNER- [phone] * Verbal permission to speak to the caregivers and representatives has been obtained from the patient. N/A * Community resources currently utilized Home Health * Please name any agencies selected above. [facility] * Additional services required to return to the preadmission environment? No * Can the patient safely return to the preadmission environment? Yes * Has this patient been hospitalized within the prior 30 days at any hospital? No Last DP export: 06/06/19 4:14 pm Patient Name: NIKKO SKELTON Page [phone] at 0732 All edits/amendments must be made on the electronic document DICTATION DATE: 06/09/19730 OYSTER HARVESTER: SWETA 06/09/19730 RPT#: [id number] DC DATE: STATUS: ADM IN [facility] [address] [place] [address] END OF REPORT
[2019-06-09 08:47] VITALS: BP 139/72
[2019-06-09 09:43] LABS: ANISOCYTOSIS OCC; LYMPHOCYTES 13 % (15-50); MONOCYTES 8 % (2-11); NEUTROPHILS 74 % (40-80); PLATELET ESTIMATE NORMAL; PLATELET MORPHOLOGY PLT CLUMPS PRESENT; ROULEAUX OCC
--- NOTE | 2019-06-09 11:08 | NUR ---
Nutrition Follow-up: Fair appetite/PO intake. C/o sore mouth. Diet: Regular PO intake: <=50% this AM Wt: 221# Last BM: 06/09 Labs noted: Glu 280 Meds noted: Solumedrol May consider carb consistent diet if Glu remains elevated. Will honor food preferences within diet restrictions. Pt requests Nystatin swish and swallow. RD following.
[2019-06-09 12:05] VITALS: BP 129/69
[2019-06-09 16:10] VITALS: BP 150/80
[2019-06-09 20:00] VITALS: BP 166/76
[2019-06-10] VITALS: BP 158/75
[2019-06-10 04:00] VITALS: BP 156/75
[2019-06-10 05:01] LABS: BASOPHILS 0.2 % (0-2); EOSINOPHILS 0 % (0-7); HEMATOCRIT 31.3 % (36.0-48.0); IMMATURE GRANULOCYTES 4.4 % (0-5); LYMPHOCYTES 4.3 % (15-50); MCH 32.2 pg (26.0-34.0); MCHC 31.9 g/dL (31.0-37.0); MCV 100.6 fL (80.0-100.0); NEUTROPHILS 87.1 % (40-80); RBC 3.11 10x6/uL (4.00-5.40); RDW 15.1 % (11.5-14.5)
[2019-06-10 05:11] LABS: PLATELET COUNT 104 10x3/uL (130-400); WBC 9.5 10x3/uL (4.8-10.8)
[2019-06-10 05:15] LABS: ALBUMIN 3.1 g/dL (3.4-5.0); ANION GAP 10.9 mmol/L (8-16); BILIRUBIN - TOTAL 0.72 mg/dL (0.2-1.3); CALCIUM 8.6 mg/dL (8.5-10.1); CARBON DIOXIDE 32.2 mmol/L (21.0-32.0); CREATININE - SERUM 1.5 mg/dL (0.6-1.3); MAGNESIUM - SERUM 2.6 mg/dL (1.8-2.4); PHOSPHOROUS 3.6 mg/dL (2.5-4.9); POTASSIUM - SERUM 4.1 mmol/L (3.5-5.1); PROTEIN - SERUM 5.2 g/dL (6.4-8.2)
--- NOTE | 2019-06-10 07:00 | NUR ---
RECEIVED REPORT. ASSUMED CARE OF PATIENT. CALL LIGHT WITHIN REACH. RESTING IN BED WITH EYES OPEN. DENIES NEEDS AT THIS TIME. RESP EVEN AND UNLABORED. NO DISTRESS.
--- NOTE | 2019-06-10 08:15 | NUR ---
ASSISTED PATIENT OOB AND BACK TO BED. LINENS CHANGED WHILE PATIENT OOB TO BEDSIDE COMMODE. PATIENT NOTED TO HAVE EXCORIATION TO BILATERAL INNER BUTTOCKS AND AT GLUTEAL CLEFT. BUTTPASTE APPLIED. PATIENT RESTING IN BED. NO DISTRESS. CALL LIGHT WITHIN REACH.
[2019-06-10 09:00] VITALS: BP 152/82
--- NOTE | 2019-06-10 09:55 | NUR ---
PATIENT OOB TO BEDSIDE COMMODE. ASSISTED BACK TO BED. CALL LIGHT WITHIN REACH. NO DISTRESS.
--- NOTE | 2019-06-10 11:23 | NUR ---
REQUESTED AND RECEIVED ORDER FORM CURLY QUARLES TO D/C IV FLUIDS AT KVO RATE, NOT NEEDED AND NOW WE ARE GIVING PATIENT LASIX. PATIENT DOES NOT NEED EXTRA FLUID. THANKED ROBINA.
[2019-06-10 13:02] VITALS: BP 158/88
[2019-06-10 17:11] VITALS: BP 151/83
--- NOTE | 2019-06-10 17:41 | NUR ---
SITTING UP IN BED WITH VISITORS AT BEDSIDE. CALL LIGHT WITHIN REACH. NO DISTRESS. DENIES NEEDS.
--- NOTE | 2019-06-10 19:15 | NUR ---
EVENING ROUNDS COMPLETE, PT SITTING UP IN BED, AAOX4. NO SIGNS OF DISTRESS, PT DENIES ANY PAIN AT THIS TIME. CL IN REACH, BED IN LOWEST POSITION. CONT WITH POC.
[2019-06-10 20:48] VITALS: BP 145/73
[2019-06-11 00:47] VITALS: BP 158/86
--- NOTE | 2019-06-11 01:48 | NUR ---
PT RESTING COMFORTABLY TRILOGY MACHINE IN USE
[2019-06-11 05:13] VITALS: BP 160/84
[2019-06-11 06:15] LABS: HEMATOCRIT 32.2 % (36.0-48.0); HEMOGLOBIN 10.5 g/dL (12-16); MCH 32.5 pg (26.0-34.0); MCHC 32.6 g/dL (31.0-37.0); MCV 99.7 fL (80.0-100.0); MEAN PLATELET VOLUME 11.3 fL (7.4-10.4); PLATELET COUNT 119 10x3/uL (130-400); RBC 3.23 10x6/uL (4.00-5.40); RDW 15.2 % (11.5-14.5)
[2019-06-11 06:18] LABS: WBC 12.6 10x3/uL (4.8-10.8)
[2019-06-11 06:24] LABS: ALBUMIN 3.1 g/dL (3.4-5.0); ANION GAP 9.5 mmol/L (8-16); BILIRUBIN - TOTAL 0.85 mg/dL (0.2-1.3); CALCIUM 8.5 mg/dL (8.5-10.1); CREATININE - SERUM 1.6 mg/dL (0.6-1.3); MAGNESIUM - SERUM 2.1 mg/dL (1.8-2.4); PHOSPHOROUS 4.1 mg/dL (2.5-4.9); POTASSIUM - SERUM 3.5 mmol/L (3.5-5.1); PROTEIN - SERUM 5.2 g/dL (6.4-8.2)
--- NOTE | 2019-06-11 07:43 | NUR ---
AM ROUNDS- PT UPRIGHT IN BED UPON ENTERING. ALERT AND ORIENTED X3. DENIES ANY NEEDS AT THIS TIME. WILL CTM.
[2019-06-11 09:20] VITALS: BP 176/89
[2019-06-11 09:49] LABS: LYMPHOCYTES 9 % (15-50); MONOCYTES 12 % (2-11); NEUTROPHILS 75 % (40-80); PLATELET ESTIMATE DECREASED
[2019-06-11 09:50] LABS: POLYCHROMASIA OCC
--- NOTE | 2019-06-11 09:59 | NUR ---
ADMINISTERED MORNING MEDICATION. NO IV COMPLAINT FROM SOLU-MEDROL OR ABDOMINAL PAIN FROM LOVENOX. NO TROUBLE SWALLOWING NYSTATIN. DENIES ANY OTHER NEEDS AT THIS TMIE. FAMILY AT BEDSIDE. WILL CTM.
--- NOTE | 2019-06-11 10:54 | NUR ---
EMPTIED ADAMS. [address] SILVA AT BEDSIDE. HAPPY WITH URINE OUTPUT. STATED PT LOOKS WELL AND WILL CONTINUE TREATMENT. SUGGESTED INPATIENT REHAB TO PATIENT, SHE REFUSED. DENIES ANY NEEDS AT THIS TIME. WILL CTM.
[2019-06-11 13:07] VITALS: BP 156/82
--- NOTE | 2019-06-11 13:21 | NUR ---
PHYSICAL THERAPY IN ROOM WITH PT. DENIES ANY NEEDS AT THIS TIME. WILL CTM.
--- NOTE | 2019-06-11 13:54 | NUR ---
ADMINISTERED MEDICATION AT THIS TIME. NO TROUBLE SWALLOWING. DENIES ANY NEEDS. PT PLACING TRILOGY BACK ON SELF. WILL CTM.
--- NOTE | 2019-06-11 17:04 | NUR ---
PT UPRIGHT IN BED WITH DINNER TRAY UPON ENTERING. ADMINISTERED MEDICATION AT THIS TIME. NO TROUBLE SWALLOWING. PT DENIES ANY NEEDS AT THIS TIME. WILL CTM.
--- NOTE | 2019-06-11 17:11 | NUR ---
I have reviewed this patient and I concur with the Shift Assessment completed by the Licensed Practical Nurse today this shift.
--- NOTE | 2019-06-11 19:10 | NUR ---
EVENING ROUNDS COMPLETE, PT SITTING UP IN BED, S/O AT BEDSIDE. NO SIGNS OF DISTRESS, PT IS AAOX4. PT DENIES ANY PAIN OR NEEDS AT THIS TIME. CL IN REACH, BED IN LOWEST POSITION. CONT WITH POC.
[2019-06-11 20:00] VITALS: BP 148/86
--- NOTE | 2019-06-11 21:23 | NUR ---
PT C/O URINE LEAKING ONTO LEGS IN BED, BED WAS WET. ADAMS CATH DOES NOT SEEM TO BE DRAINING AND INSIDE OF TUBING APPEARS TO BE FULL OF YELLOW/WHITE SUBSTANCE. TELEPHONE ORDER OBTAINED FROM IDRIS RAWLS TO REMOVE ADAMS CATH.
--- NOTE | 2019-06-11 21:51 | NUR ---
ADAMS CATH REMOVED, TIP INTACT, PT TOLERATED WELL. CONT WITH POC.
[2019-06-12] VITALS: BP 122/89
[2019-06-12 04:00] VITALS: BP 144/85
[2019-06-12 05:14] LABS: ANION GAP 10.8 mmol/L (8-16); CALCIUM 8.7 mg/dL (8.5-10.1); CARBON DIOXIDE 34.2 mmol/L (21.0-32.0); CREATININE - SERUM 1.6 mg/dL (0.6-1.3)
[2019-06-12 05:46] LABS: BASOPHILS 0.2 % (0-2); EOSINOPHILS 0 % (0-7); HEMATOCRIT 33.8 % (36.0-48.0); HEMOGLOBIN 11.3 g/dL (12-16); IMMATURE GRANULOCYTES 4.9 % (0-5); LYMPHOCYTES 2.4 % (15-50); MCH 32.5 pg (26.0-34.0); MCHC 33.4 g/dL (31.0-37.0); MEAN PLATELET VOLUME 11.1 fL (7.4-10.4); MONOCYTES 3.2 % (2-11); NEUTROPHILS 89.3 % (40-80); PLATELET COUNT 129 10x3/uL (130-400); RBC 3.48 10x6/uL (4.00-5.40); RDW 15.2 % (11.5-14.5); WBC 13.6 10x3/uL (4.8-10.8)
[2019-06-12 05:54] LABS: MCV 97.1 fL (80.0-100.0)
--- NOTE | 2019-06-12 07:16 | NUR ---
AM ROUNDS- PT UP ON BEDSIDE COMMODE UPON ENTERING. DENIES ANY NEEDS AT THIS TIME. WILL CTM. PT IS ON 3L VIA NASAL CANNULA DURING AWAKE HOURS, 4L TRILOGY WHEN SLEEPING. IV TO LEFT FOREARM SALINE LOCKED. PT IS ALERT AND ORIENTED X3. UP ADLIB. PT ADAMS WAS DISCONTINUED YESTERDAY. PT IS A DNR.
[2019-06-12 09:39] VITALS: BP 154/83
--- NOTE | 2019-06-12 10:49 | NUR ---
ADMINISTERED MEDICATION, TOLERATED WELL. SITTING UP RIGHT. DR. SILVA ENTERED, PT REPORTS DOING WELL AND REQUESTED TO GO HOME TODAY. RICARDO AGREED AND IS GOING TO CONFIRM WITH DR. JOHNSON. DENIES ANY NEEDS AT THIS TIME. LEFT RESTING COMFORTABLY WITH SPEECH AT BEDSIDE. WILL CTM.
--- NOTE | 2019-06-12 11:05 | NUR ---
Nutrition Follow-up: Pt reports improvement in appetite. Still c/o mouth sores but states Nystatin is slowly helping. Per ST, pt on mech soft ground meat with gravy d/t sores. Multiple loose BMs for the last few days. Diet: Regular, mech soft ground meat with gravy Wt: 213# Labs noted: Glu 368, K+ 3.0 Meds noted: KCl, Lasix, Nystatin, Solumedrol May consider carb consistent diet 2/[address] following.
--- NOTE | 2019-06-12 12:05 | NUR ---
PT UPRIGHT EATING LUNCH. DENIES ANY NEEDS AT THIS TIME. WILL CTM.
[2019-06-12] MEDS ORDERED: DIFLUCAN200 MG PO (13:00)
--- NOTE | 2019-06-12 13:49 | NUR ---
PT RESTING COMFORTABLY IN BED. DISCHARGE TODAY, AWAITING PAPERS. DENIES ANY NEEDS. WILL CTM.
--- NOTE | 2019-06-12 14:37 | MORECARE ---
CASE MANAGEMENT DISCHARGE SUMMARY PATIENT: NIKKO SKELTON UNIT: [id number] ADM DATE: 06/05/19 AGE: 64 : 53 SEX: F ROOM/BED: D.7788 AUTHOR: ERWIN,DOC PHYSICIAN: REFERRING PHYSICIAN: PARAM DOWNEY MD DATE OF SERVICE: 06/12/19 Discharge Plan Patient Name: NIKKO SKELTON Facility: [facility]:[place] : 1955 Planned Disposition: Home with Home Health Anticipated Discharge Date: 06/12/19 Discharge Date: Expected LOS: 7 Initial Reviewer: [email or web address] Initial Review Date: 06/06/2019 Generated: 06/12/19 3:37 pm DCP- Discharge Planning Updated by [id number]: Shobha Burnham on 06/06/19 4:[address] Patient Name: NIKKO SKELTON Admission Status: ER Accout number: [id number] Admission Date: 06-05-2019 : 1955 Admission Diagnosis:ACUTE AND CHRONIC RESPIRATORY FAILURE WITH HYPERCAPNIA Attending: PARAM LIANG Current LOS: 1 Anticipated DC Date: Planned Disposition: Home with Home Health Primary Insurance: MEDICARE A & B Discharge Planning Comments: CM met with patient and patient's significant other Parker to complete initial dc planning assessment. CM educated patient on the CM role and verbal consent given by patient to complete assessment. Patient lives at home with her significant other Parker where she is partially dependent with her care. At discharge patient plans to return home and feels this is a safe discharge. CM discussed availability of home health, rehab services, and medical equipment. Parker will drive her home upon discharge Patient has a nebulizer, home o2 and trilogy ([facility]) Patient has [facility] and plans to resume care with them upon discharge. Patient denied known discharge needs at this time. CM will continue to follow and will assist as needed with dc plans/needs. Discharge Rn: Shobha Burnham DCPIA - Discharge Planning Initial Assessment Updated by [id number]: Shobha Burnham on 06/06/19 5:06 pm * Is the patient Alert and Oriented? No * PCP [facility] * Pharmacy [facility] * Preadmission Environment Home with Family * ADLs Partial Dependent * Partial ADLs (Assistance needed) Ambulation Bathing Dressing Eating Medication Management Toileting Transfers * Other Equipment TRILOGY, NEBULIZER, HOME/PORTABLE 02, ([facility]) WALKER, W/C, S/C, BSC * List name and contact numbers for known caregivers / representatives who currently or will assist patient after discharge: PARKER [employer]- [phone] * Verbal permission to speak to the caregivers and representatives has been obtained from the patient. N/A * Community resources currently utilized Home Health * Please name any agencies selected above. [facility] * Additional services required to return to the preadmission environment? No * Can the patient safely return to the preadmission environment? Yes * Has this patient been hospitalized within the prior 30 days at any hospital? 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
--- NOTE | 2019-06-12 15:15 | MORECARE ---
CASE MANAGEMENT DISCHARGE SUMMARY PATIENT: NIKKO SKELTON UNIT: [id number] ADM DATE: 06/05/19 AGE: 64 : 51 SEX: F ROOM/BED: D.2109 AUTHOR: ERWIN,DOC PHYSICIAN: REFERRING PHYSICIAN: PARAM DOWNEY MD DATE OF SERVICE: 06/12/19 Discharge Plan Patient Name: NIKKO SKELTON Facility: [facility]:[place] : 1955 Planned Disposition: Home with Home Health Anticipated Discharge Date: 06/12/19 Discharge Date: Expected LOS: 7 Initial Reviewer: [email or web address] Initial Review Date: 06/06/2019 Generated: 06/12/19 4:15 pm Comments DCP- Discharge Planning Updated by [email or web address]: Parviz Delgado on 06/12/19 2:[address] Patient Name: NIKKO SKELTON Encounter No: [id number] : 1955 Primary Insurance: MEDICARE A & B Anticipated DC Date: 06-12-2019 Planned Disposition: Home with Home Health External Planned Provider: [facility] DCP follow-up note: CM MET WITH PT IN ROOM TO DISCUSS DISCHARGE NEEDS AND PLANNING. CM DISCUSSED AVAILABILITY OF HOME HEALTH, REHAB SERVICES AND MEDICAL EQUIPMENT. PT DENIES DISCHARGE NEEDS OTHER THAN HOME HEALTH. SPOUSE TO TRANSPORT HOME AT DISCHARGE. IMPORTANT MESSAGE FROM MEDICARE PROVIDED AND EXPLAINED. CM NOTIFIED [facility] OF [facility], , OF DISCHARGE AND NEED FOR RESUMPTION OF HOME HEALTH CARE. CM FAXED DISCHARGE INFORMATION TO [facility] AT [phone]. PHOTOENGRAVER APPRENTICE NURSE NOTIFIED. JAMIE Herrera DCP- Discharge Planning Updated by [id number]: Shobha Burnham on 06/06/19 4:[address] Patient Name: NIKOK SKELTON Admission Status: ER Accout number: [id number] Admission Date: 06-05-2019 : 1955 Admission Diagnosis:ACUTE AND CHRONIC RESPIRATORY FAILURE WITH HYPERCAPNIA Attending: PARAM LIANG Current LOS: 1 Anticipated DC Date: Planned Disposition: Home with Home Health Primary Insurance: MEDICARE A & B Discharge Planning Comments: CM met with patient and patient's significant other Parker to complete initial dc planning assessment. LEONARDO educated patient on the CM role and verbal consent given by patient to complete assessment. Patient lives at home with her significant other Parker where she is partially dependent with her care. At discharge patient plans to return home and feels this is a safe discharge. CM discussed availability of home health, rehab services, and medical equipment. Parker will drive her home upon discharge Patient has a nebulizer, home o2 and trilogy ([facility]) Patient has [facility] and plans to resume care with them upon discharge. Patient denied known discharge needs at this time. CM will continue to follow and will assist as needed with dc plans/needs. Estate Planner: Shobha Burnham DCPIA - Discharge Planning Initial Assessment Updated by [email or web address]: Shobha Burnham on 06/06/19 5:06 pm * Is the patient Alert and Oriented? No * PCP PARCHSERGIO * Pharmacy [facility] * Preadmission Environment Home with Family * ADLs Partial Dependent * Partial ADLs (Assistance needed) Ambulation Bathing Dressing Eating Medication Management Toileting Transfers * Other Equipment TRILOGY, NEBULIZER, HOME/PORTABLE 02, ([facility]) WALKER, W/C, S/C, BSC * List name and contact numbers for known caregivers / representatives who currently or will assist patient after discharge: P[employer]ER [employer]- [phone] * Verbal permission to speak to the caregivers and representatives has been obtained from the patient. N/A * Community resources currently utilized Home Health * Please name any agencies selected above. [facility] * Additional services required to return to the preadmission environment? No * Can the patient safely return to the preadmission environment? Yes * Has this patient been hospitalized within the prior 30 days at any hospital? No Coverage Notice Reviewer: [id number] - Parviz Delgado Notice Issued Date-Time: 06/12/2019 14:14 Notice Type: IM Discharge Notice Notice Delivered To: Patient Relationship to Patient: Animal Feeder Name: Delivery Method: HAND - Hand Delivered [place] Days: Prior Verbal Notification: Recipient Understood Notice: Yes Recipient Signature: Yes Med Rec Note Co-signed by Attending: Coverage Notice Comment: Last DP export: 06/12/19 1:37 p Patient Name: NIKKO SKELTNO Page 13655 at 1515 All edits/amendments must be made on the electronic document DICTATION DATE: 06/12/191513 BILL HIKER: SWETA 06/12/191513 RPT#: [id number] DC DATE: STATUS: ADM IN [facility] [address] [place] [address] END OF REPORT
--- NOTE | 2019-06-12 16:45 | NUR ---
DC PT IV DUE TO PATIENT BEING DISCHARGED. CATHETER TIP INTACT. TOLERATED WELL. PT SIGNED ALL NECESSARY PAPERWORK. WAITING FOR RIDE TO ARRIVE.
--- NOTE | 2019-06-12 17:52 | NUR ---
PT UPRIGHT IN BED EATING DINNER. SUPPOSED TO LEAVE WITH AFTER MEAL. DENIES ANY NEEDS.
--- NOTE | 2019-06-12 18:35 | NUR ---
PT LEAVING UNIT PER WHEELCHAIR, ACCOMPANIED BY FAMILY.
== END 2019-06-12 18:44 | disposition home health service (06) | DRG 189 ==
LOC: D.ER 19:31 → D.ICU 23:26 → D.M2 06-08 14:39
PROVIDERS: Family Medicine; Internal Medicine Nephrology; ADMIT Family Medicine Adult Medicine; ATTEND Family Medicine Adult Medicine
DX: J96.22 Acute and chronic respiratory failure with hypercapnia (principal); N17.0 Acute kidney failure with tubular necrosis; G93.41 Metabolic encephalopathy; E87.2 Acidosis; E87.0 Hyperosmolality and hypernatremia; J44.1 Chronic obstructive pulmonary disease with (acute) exacerbation; N39.0 Urinary tract infection, site not specified; I50.32 Chronic diastolic (congestive) heart failure; Z66 Do not resuscitate; J96.21 Acute and chronic respiratory failure with hypoxia; E87.5 Hyperkalemia; E83.41 Hypermagnesemia; J84.10 Pulmonary fibrosis, unspecified; I11.0 Hypertensive heart disease with heart failure; M06.9 Rheumatoid arthritis, unspecified; K21.9 Gastro-esophageal reflux disease without esophagitis; K58.9 Irritable bowel syndrome, unspecified; F41.9 Anxiety disorder, unspecified; G89.29 Other chronic pain; D64.9 Anemia, unspecified; M79.7 Fibromyalgia; E83.51 Hypocalcemia; R41.82 Altered mental status, unspecified; R53.81 Other malaise; M34.9 Systemic sclerosis, unspecified

== ENCOUNTER → 2019-06-27 15:17 | Outpatient (CLI) | payer MEDICARE, BC ==
[2019-06-06 09:57] VITALS: BMI 37.2
[~2019-06-27 15:17] MED LIST changes: +DIFLUCAN200 MG PO
[2019-06-27 16:43] LABS: APPEARANCE CLEAR (CLEAR); BILIRUBIN NEGATIVE (NEGATIVE); COLOR YELLOW (YELLOW); GLUCOSE 50 mg/dL (NEGATIVE); KETONE NEGATIVE (NEGATIVE); NITRITE NEGATIVE (NEGATIVE); PROTEIN NEGATIVE (NEGATIVE); UROBILINOGEN NORMAL (NORMAL)
== END | disposition home or self-care (01) ==
LOC: D.LABREF 15:17
PROVIDERS: ATTEND Family Medicine
DX: J44.1 Chronic obstructive pulmonary disease with (acute) exacerbation (principal)

== ENCOUNTER → 2019-08-01 16:02 | Outpatient (CLI) | payer MEDICARE, BC ==
[2019-06-06 09:57] VITALS: BMI 37.2
[2019-08-01 16:14] LABS: ANION GAP 15.5 mmol/L (8-16); CALCIUM 8.8 mg/dL (8.5-10.1); CARBON DIOXIDE 31.2 mmol/L (21.0-32.0); CREATININE - SERUM 1.6 mg/dL (0.6-1.3); POTASSIUM - SERUM 5.7 mmol/L (3.5-5.1)
== END | disposition home or self-care (01) ==
LOC: D.LABREF 16:02
PROVIDERS: ATTEND Family Medicine
DX: I50.9 Heart failure, unspecified (principal)

== ENCOUNTER → 2019-09-16 17:31 | Outpatient (CLI) | payer MEDICARE, BC ==
[2019-06-06 09:57] VITALS: BMI 37.2
[2019-09-16 18:01] LABS: BASOPHILS 0.2 % (0-2); EOSINOPHILS 0.5 % (0-7); HEMATOCRIT 36.3 % (36.0-48.0); HEMOGLOBIN 10.9 g/dL (12-16); IMMATURE GRANULOCYTES 2.1 % (0-5); LYMPHOCYTES 9.1 % (15-50); MCH 31.3 pg (26.0-34.0); MCV 104.3 fL (80.0-100.0); MEAN PLATELET VOLUME 9.3 fL (7.4-10.4); MONOCYTES 4.8 % (2-11); NEUTROPHILS 83.3 % (40-80); RBC 3.48 10x6/uL (4.00-5.40); RDW 16.5 % (11.5-14.5); WBC 12.5 10x3/uL (4.8-10.8)
[2019-09-16 18:05] LABS: PLATELET COUNT 280 10x3/uL (130-400)
[2019-09-16 18:17] LABS: ALBUMIN 3.4 g/dL (3.4-5.0); ANION GAP 9.9 mmol/L (8-16); BILIRUBIN - TOTAL 0.38 mg/dL (0.2-1.3); CALCIUM 8.8 mg/dL (8.5-10.1); CARBON DIOXIDE 33.8 mmol/L (21.0-32.0); CREATININE - SERUM 1.3 mg/dL (0.6-1.3); POTASSIUM - SERUM 5.7 mmol/L (3.5-5.1); PROTEIN - SERUM 6.2 g/dL (6.4-8.2)
== END | disposition home or self-care (01) ==
LOC: D.LABREF 17:31
PROVIDERS: ATTEND Family Medicine
DX: E87.6 Hypokalemia (principal)

== ENCOUNTER 2019-10-05 22:19 | Emergency (ER) | payer MEDICARE, BC ==
[~2019-10-05] VITALS: Ht 165.1 cm; Wt 81.8 kg
[2019-10-05 22:19] VITALS: Ht 165.1 cm; Wt 81.8 kg
== END 2019-10-06 00:39 ==
LOC: D.ER 22:19
DX: I46.9 Cardiac arrest, cause unspecified (principal); J96.90 Respiratory failure, unspecified, unspecified whether with hypoxia or hypercapnia; I10 Essential (primary) hypertension; G62.9 Polyneuropathy, unspecified; J44.9 Chronic obstructive pulmonary disease, unspecified; Z99.81 Dependence on supplemental oxygen